=== PATIENT | female | born 1950 | race African-American/Black ===

== ENCOUNTER 2021-01-17 10:29 | Outpatient (CLI) | payer MEDICARE, OTHER, SELFPAY ==
[2021-01-17 11:19] LABS: Anion Gap 11 mmol/L (8-16); Blood Urea Nitrogen 39 mg/dL (7-17); Carbon Dioxide 36 mmol/L (22-30); Chloride 94 mmol/L (98-107); Estimated Glomerular Filt Rate 7; Glucose 94 mg/dL (65-110); Potassium 3.5 mmol/L (3.4-5.0); Sodium 141 mmol/L (137-145)
[2021-01-17 11:37] LABS: INR 1.1
[2021-01-17 11:38] LABS: Partial Thromboplastin Time 31.7 SECONDS (22.3-36.8)
== END 2021-01-17 10:30 | disposition home or self-care (01) ==
LOC: ANHSURGERY 10:35
PROVIDERS: Anesthesiology; PCP Internal Medicine Infectious Disease; Visit Provider Plastic Surgery
DX: Z01.812 Encounter for preprocedural laboratory examination (principal); N19 Unspecified kidney failure
CPT/HCPCS: 36415; 80048; 85610; 85730

== ENCOUNTER 2021-01-24 01:46 | Day surgery (SDC) | payer MEDICARE, OTHER, SELFPAY ==
[2021-01-11 12:00] VITALS: BMI 27.3
[2021-01-24 06:16] VITALS: BP 134/71; PULSE 92; RESP 16; TEMP 36.6; O2SAT 98
--- NOTE | 2021-01-24 06:45 | WPDANESEPPF ---
Anes - Initial Pre Proc Eval Procedure: Operation Date: 01/24/21 07:30 Proposed Procedures p Left Open Carpal Tunnel Release - Jer Charles MD Date/Time: 01/24/21 06:45 Surgeon: Jer Charles MD Pre Op Diagnosis: left carpal tunnel syndrome Patient Data Age: 70 Gender: F Height: 1.57 m Weight: 68 kg Last Vital Signs Temp 36.6 C 01/24/21 06:16 Pulse 92 01/24/21 06:16 Resp 16 01/24/21 06:16 BP 134/71 01/24/21 06:16 Pulse Ox 98 01/24/21 06:16 Allergies Allergy/AdvReac Type Severity Reaction Status Date / Time iohexol AdvReac AVOIDS Verified 01/11/21 11:46 [From contrast - CT, X-RAY] Sulfa (Sulfonamide AdvReac Nausea and Verified 01/11/21 11:45 Antibiotics) Vomiting Home Medications Medication Instructions Recorded Confirmed Type donepezil 10 mg tablet 10 mg PO DAILY tablet 12/13/20 01/24/21 History pantoprazole 40 mg tablet,delayed 40 mg PO HS tablet 12/13/20 01/24/21 History release senna 1 cap PO DAILY PRN 12/13/20 01/24/21 History tehs-gqklsldb-krryats-L.acidophilus-herbal no.279 545 mg capsule simvastatin 20 mg tablet 20 mg PO HS 12/13/20 01/24/21 History allopurinol 100 mg tablet 100 mg PO DAILY 12/21/20 01/24/21 History carvedilol 12.5 mg tablet 12.5 mg PO Q12H 12/21/20 01/24/21 History tiotropium bromide 1.25 2 puff INHALATION BID 12/21/20 01/24/21 History mcg/actuation mist for inhalation acetaminophen 500 mg PO Q6H PRN 01/11/21 01/24/21 History amlodipine 10 mg PO QAM 01/11/21 01/24/21 History aspirin [Adult Aspirin EC Low 81 mg PO DAILY 01/11/21 01/24/21 History Strength] cyclobenzaprine 10 mg PO TID 01/11/21 01/24/21 History diphenhydramine HCl [Benadryl] 25 mg PO QAM 01/11/21 01/24/21 History furosemide 20 mg PO BID 01/11/21 01/24/21 History hydralazine 50 mg PO TID 01/11/21 01/24/21 History isosorbide mononitrate 30 mg PO QAM 01/11/21 01/24/21 History vitamin E mixed [Natural Vitamin E] 400 unit PO DAILY 01/11/21 01/24/21 History Patient hx anesthesia problems: none Family hx anesthesia problems: none Results Review: All pre-operative results and documents have been reviewed as part of the pre-operative evaluation. [facility] Past Medical History Medical History COPD (chronic obstructive pulmonary disease) CVA (cerebral vascular accident) ESRD (end stage renal disease) on dialysis Hyperlipidemia Hypertension Social History Social History Smoking packs per day: 2 Smoking cigarettes per day: 40.0 Years smoked: 42 Smoking pack-years: 84.00 Smoking status: Never smoker Tobacco type: cigarettes Smoking end date: 10/27/03 Alcohol intake: never Alcohol use details: SOCIAL DRINKER IN PAST Substance use: never Living arrangements: with family Additional living arrangements comments: DAUGHTER, SON-IN-LAW, GRANDDAUGHTER Spiritual care concerns: No Anes - Eval Final PreProcedure Day of Procedure 01/24/21 06:45 Patient weight: overweight Heart: regular rate and rhythm Lungs: decreased breath sounds Airway: Mallampati scale class II Neurological: alert and oriented and hemiparesis Last oral intake: >/= 8 hours ASA classification: IV Emergent: no Anesthetic plan: proceed Anesthesia type and monitoring: general GIVS and standard monitoring Results Review: All pre-operative results and documents have been reviewed as part of the pre-operative evaluation. Informed Consent: The patient's anesthetic plan and its attendant risks and benefits were discussed with the patient/family/POA. Questions were solicited and answers provided to the satisfaction of the patient/family/POA.
[2021-01-24] MEDS: SODIUM CHLORIDE 0.9% IV 500 ML 30 ML IV CONT (06:51)
--- NOTE | 2021-01-24 06:56 | WPDHPUPDATE1 ---
History and Physical Update Update Date/Time: 01/24/21 06:56 History and Physical has been reviewed, including an updated exam of the patient. There are NO changes in the patient's condition. Risks, benefits, and alternatives have been discussed and questions answered. Patient agrees to proceed with procedure.
[2021-01-24 07:07] LABS: Anion Gap 11 mmol/L (8-16); Blood Urea Nitrogen 39 mg/dL (7-17); Calcium 8.9 mg/dL (8.4-10.2); Carbon Dioxide 36 mmol/L (22-30); Chloride 91 mmol/L (98-107); Estimated CRCL calculation 6 ml/min; Estimated Glomerular Filt Rate 7; Glucose 83 mg/dL (65-110); Potassium 3.6 mmol/L (3.4-5.0); Sodium 138 mmol/L (137-145)
[2021-01-24] MEDS: ceFAZolin 2 GM/D5W 50 ML 2 GM/50 ML BAG IVPB (07:21)
--- NOTE | 2021-01-24 07:36 | SUR.OPER ---
PATIENT'S LEFT ARM AV SHUNT ASSESSED. PALPABLE THRILL.
[2021-01-24] MEDS: LIDO 1%/EPINEPHRINE 1:100,000 50 ML VIAL 10 ML INFILTRATE (07:40)
[2021-01-24] MEDS: BACITRACIN OINTMENT 15 GM TUBE 1 APPLIC TOPICAL (07:48)
[2021-01-24 08:03] VITALS: BP 102/52; PULSE 84; RESP 14; O2SAT 97
--- NOTE | 2021-01-24 08:15 | P.OP_ITS ---
Procedure Note - Detailed Date of Procedure 01/24/21 Pre-op Diagnosis left carpal tunnel syndrome Post-op Diagnosis same Procedure Performed Left open carpal tunnel release Surgeon Jer Charles MD Anesthesia MAC Description of Procedure The left carpal canal area was marked on the patient's wrist in the holding area. She was taken to the operating room where she was placed supine on the operating table. A time-out was held and confirmed. She was given IV sedation and the left upper extremity was prepped and draped in usual fashion. She has a dialysis shunt in the upper extremity and we elected not to use a tourniquet. The site was remarked and locally infiltrated with 1% lidocaine with epinephrin e. Several minutes were allowed for some hemostatic effect. The incision was made with a 15 blade. Blunt dissection revealed the palmar aponeurosis and the transverse carpal ligament. This was incised with a 15 blade. Under 3 point retraction the ligament was divided distally and proximally for complete release. No unusual anatomy was noted. The skin was closed with interrupted 5 0 nylon sutures and the usual bandage with Tramaine wrap was applied. Tolerated well she is being discharged with instructions in wound care and follow-up and a prescription for hydrocodone 5/325 7.
[2021-01-24 08:30] VITALS: BP 101/61; PULSE 84; RESP 16
[2021-01-24 08:58] VITALS: BP 101/61; PULSE 84; RESP 16
--- NOTE | 2021-01-24 10:20 | SUR.OPER ---
PATIENT'S LEFT ARM AV SHUNT ASSESSED. PALPABLE THRILL POST OP.
== END 2021-01-24 09:08 | disposition home or self-care (01) ==
PROVIDERS: Anesthesiology; PCP Internal Medicine Infectious Disease; Visit Provider Plastic Surgery
PROC: (CPT 64721; principal; 2021-01-24 07:30)
DX: G56.02 Carpal tunnel syndrome, left upper limb (principal); Z79.51 Long term (current) use of inhaled steroids; J44.9 Chronic obstructive pulmonary disease, unspecified; I12.0 Hypertensive chronic kidney disease with stage 5 chronic kidney disease or end stage renal disease; N18.6 End stage renal disease; Z99.2 Dependence on renal dialysis; Z86.73 Personal history of transient ischemic attack (TIA), and cerebral infarction without residual deficits; Z87.891 Personal history of nicotine dependence; Z79.82 Long term (current) use of aspirin
CPT/HCPCS: 64721; 36415; 80048; A9270; J0690; J2704; J3010; J7030

== ENCOUNTER 2021-04-18 01:53 | Day surgery (SDC) | payer MEDICARE, OTHER, SELFPAY ==
[2021-04-09 16:09] VITALS: BMI 27.8
--- NOTE | 2021-04-09 16:15 | PC.NURSE ---
Report to the Outpatient Waiting Room, entrance under the green pavilion located off [facility], at time __0700 on date _04/18/21 . OR Time: _0900 . - You and your visitor will be asked a series of questions to screen for COVID 19 for your protection. - A mask is required within the hospital. - Only one visitor is allowed at this time. Patient visitors will be guided where to wait when not with patient. Preoperative COVID Testing Requirements: No COVID Test needed if: (proof is required; if not received patient will have Rapid Test prior to entry) - Patient has received COVID Vaccine at least 14 days prior to procedure date or - Patient has positive COVID test result within last 90 days of surgery date. COVID Test needed if above criteria is not met If not COVID vaccinated a COVID test must be conducted within 72 hours of surgery and patient is asked to isolate self from time of testing until procedure. You will go to the [facility] for your COVID testing. The [facility] site is located at the corner of [address] [facility]. You will only be called if COVID results are positive and your surgeon may reschedule your elective surgery date. Patients may have clear liquids (water, carbonated beverages, clear teas, apple juice) until 3 hours prior to surgery with a maximum of 20 ounces. - No food from midnight until time of surgery - Infants may have breast milk until 4 hours before surgery, infant formula 6 hours prior to surgery. - Children will be allowed to drink immediately following surgery. If applicable, please bring a bottle or sippy cup to assist with drinking. Juice, water, soda, and popsicles are readily available. For infants on formula, please bring formula the day of surgery. Pacifiers are allowed. Take the following medications with a SIP of water the morning of surgery: _AMLODIPINE,CARVEDILOL,DONEPEZIL,HYDRALAZINE,ISOSORBIDE,SPIRIVA Medications to discontinue per physician ____ALL VITAMINS AND SUPPLEMENTS 3 DAYS PRE OP Date to take last dose__04/14/21 Please no make-up, nail lao, hairspray, perfume, deodorant, or body powder the day of surgery. No jewelry (including any body piercings) or valuables the day of surgery, leave them at home. Please take a shower or bath the night before, or the morning of, surgery with an antibacterial soap. Wear comfortable, loose fitting clothing. Children are encouraged to wear pajamas. - Jewelry must be removed prior to entering the operating room. Rings and piercings that are not removed may be cut off. - The hospital will not accept responsibility for valuables. - Please leave all valuables, including medications, at home the day of surgery. If you are going home after surgery, a licensed catshovel driver must drive you home. - NO public transportation without another adult. - We recommend that an adult stay with you for 24 hours following discharge. - We also recommend that you do not drive, make important decision, drink alcoholic beverages, or take any drugs that were not prescribed by your health care provider for at least 24 hours after your discharge time. For Pediatric surgeries, we recommend two adults accompany the child home (only one inside the building at this time). Follow any additional instructions given to you from your surgeon. Telephone instructions given to ___PATIENT and asked if any additional questions and then verbalized understanding. Patient advised to call surgeon office or pre surgery nurse liaison [phone] if any additional questions.
[2021-04-18 07:10] VITALS: BP 151/76; PULSE 93; RESP 16; TEMP 36.3; O2SAT 99
--- NOTE | 2021-04-18 07:15 | WPDHPUPDATE1 ---
History and Physical Update Update Date/Time: 04/18/21 07:15 History and Physical has been reviewed, including an updated exam of the patient. There are NO changes in the patient's condition. Risks, benefits, and alternatives have been discussed and questions answered. Patient agrees to proceed with procedure.
[2021-04-18] MEDS: SODIUM CHLORIDE 0.9% IV 500 ML 30 ML IV CONT (07:34)
[2021-04-18 07:50] LABS: Anion Gap 9 mmol/L (8-16); Blood Urea Nitrogen 36 mg/dL (7-17); Calcium 8.7 mg/dL (8.4-10.2); Carbon Dioxide 38 mmol/L (22-30); Chloride 91 mmol/L (98-107); Estimated CRCL calculation 7 ml/min; Estimated Glomerular Filt Rate 8; Glucose 84 mg/dL (65-110); Potassium 3.7 mmol/L (3.4-5.0); Sodium 138 mmol/L (137-145)
--- NOTE | 2021-04-18 08:32 | WPDANESEPPF ---
Anes - Initial Pre Proc Eval Procedure: Operation Date: 04/18/21 09:00 Proposed Procedures p Right Open Carpal Tunnel Release - Jer Charles MD Date/Time: 04/18/21 08:32 Surgeon: Jer Charles MD Pre Op Diagnosis: Rt Carpal Tunnel Syndrome Patient Data Age: 71 Gender: F Height: 1.57 m Weight: 69.1 kg Allergies Allergy/AdvReac Type Severity Reaction Status Date / Time iohexol AdvReac AVOIDS Verified 04/18/21 07:03 [From contrast - CT, X-RAY] Sulfa (Sulfonamide AdvReac Nausea and Verified 04/18/21 07:03 Antibiotics) Vomiting Home Medications Medication Instructions Recorded Confirmed Type donepezil 10 mg tablet 10 mg PO DAILY tablet 12/13/20 04/09/21 History pantoprazole 40 mg tablet,delayed 40 mg PO HS tablet 12/13/20 04/09/21 History release simvastatin 20 mg tablet 20 mg PO HS 12/13/20 04/09/21 History allopurinol 100 mg tablet 100 mg PO DAILY 12/21/20 04/09/21 History carvedilol 12.5 mg tablet 12.5 mg PO Q12H 12/21/20 04/09/21 History tiotropium bromide 1.25 2 puff INHALATION BID 12/21/20 04/09/21 History mcg/actuation mist for inhalation acetaminophen 500 mg PO Q6H PRN 01/11/21 04/09/21 History amlodipine 5 mg PO QAM 01/11/21 04/09/21 History aspirin 81 mg PO DAILY 01/11/21 04/09/21 History cyclobenzaprine 10 mg PO TID 01/11/21 04/09/21 History diphenhydramine HCl [Benadryl] 25 mg PO QAM 01/11/21 04/09/21 History furosemide 20 mg PO BID 01/11/21 04/09/21 History hydralazine 50 mg PO TID 01/11/21 04/09/21 History isosorbide mononitrate 30 mg PO QAM 01/11/21 04/09/21 History vitamin E mixed 400 unit PO DAILY 01/11/21 04/18/21 History Laboratory Tests 04/18/21 07:29 Sodium 138 mmol/L mmol/L (137-145) Potassium 3.7 mmol/L mmol/L (3.4-5.0) Chloride 91 mmol/L L mmol/L (98-107) Carbon Dioxide 38 mmol/L H mmol/L (22-30) Anion Gap 9 mmol/L mmol/L (8-16) BUN 36 mg/dL H mg/dL (7-17) Creatinine 6.00 mg/dL H mg/dL (0.7-1.0) Estim Creat Clear Calc 7 ml/min ml/min Estimated GFR 8 L (59 - ) Glucose 84 mg/dL mg/dL (65-110) Calcium 8.7 mg/dL mg/dL (8.4-10.2) Patient hx anesthesia problems: none Family hx anesthesia problems: none Results Review: All pre-operative results and documents have been reviewed as part of the pre-operative evaluation. [facility] Past Medical History Medical History COPD (chronic obstructive pulmonary disease) CVA (cerebral vascular accident) ESRD (end stage renal disease) on dialysis Hyperlipidemia Hypertension Social History Social History Smoking packs per day: 2 Smoking cigarettes per day: 40.0 Years smoked: 42 Smoking pack-years: 84.00 Smoking status: Former smoker Tobacco type: cigarettes Smoking end date: 04/28/03 Alcohol intake: never Alcohol use details: SOCIAL DRINKER IN PAST Substance use: never Living arrangements: with family Additional living arrangements comments: DAUGHTER, SON-IN-LAW, GRANDDAUGHTER Spiritual care concerns: No Anes - Eval Final PreProcedure Day of Procedure 04/18/21 08:32 Patient weight: overweight Heart: regular rate and rhythm Lungs: clear to auscultation Airway: Mallampati scale class II Neurological: alert and oriented Last oral intake: >/= 8 hours ASA classification: IV Emergent: no Anesthetic plan: proceed Anesthesia type and monitoring: general GIVS and standard monitoring Results Review: All pre-operative results and documents have been reviewed as part of the pre-operative evaluation. Informed Consent: The patient's anesthetic plan and its attendant risks and benefits were discussed with the patient/family/POA. Questions were solicited and answers provided to the satisfaction of the patient/family/POA.
[2021-04-18] MEDS: LIDO 1%/EPINEPHRINE 1:100,000 50 ML VIAL 10 ML INFILTRATE (08:58)
[2021-04-18] MEDS: BACITRACIN OINTMENT 15 GM TUBE 1 APPLIC TOPICAL (08:59)
[2021-04-18 09:19] VITALS: BP 133/69; PULSE 86; RESP 12; O2SAT 92
--- NOTE | 2021-04-18 09:43 | W.PM.PROC2 ---
Procedure Note - Detailed Date of Procedure 04/18/21 Pre-op Diagnosis Rt Carpal Tunnel Syndrome Post-op Diagnosis same Procedure Performed Right open carpal tunnel release Surgeon Jer Charles MD Anesthesia MAC Description of Procedure The right carpal tunnel region was marked on the patient as she waited in the holding area. She was taken to the operating room placed supine operating table. She was given IV sedation. The extremity was prepped and draped usual fashion. The site was remarked and locally infiltrated with 1% lidocaine with epinephrine. The tourniquet was on the forearm in the more proximal IV access herself with avoidance placement on her other arm where she has AV shunt.. that we did not utilize the tourniquet. The incision was made and dissection was carried through the subcutaneous tissue to the palmar aponeurosis. And retractors were inserted for retraction palmar aponeurosis was divided. Retinacular ligament was identified and carefully incised with a 15 blade. A complete release was done distally and proximally. There was no unusual anatomy noted. The skin was closed with interrupted 5 0 nylon suture. The usual bandage with Tramaine wrap was applied. She was discharged from the operating room in stable condition. She has instructions in wound care and follow-up and a prescription for hydrocodone 5/325 7. With instructions not to overuse the acetaminophen that she already uses at home. Estimated Blood Loss 1 Tourniquet Time 0 Packing No Pathology none sent Complications No immediate complications Condition stable Disposition same day
[2021-04-18 09:45] VITALS: BP 131/69; PULSE 85; RESP 20
[2021-04-18 10:15] VITALS: BP 119/69; PULSE 81; RESP 20
== END 2021-04-18 10:25 | disposition home or self-care (01) ==
PROVIDERS: Anesthesiology; PCP Internal Medicine Infectious Disease; Visit Provider Plastic Surgery
PROC: (CPT 64721; principal; 2021-04-18 09:00)
DX: G56.01 Carpal tunnel syndrome, right upper limb (principal); J44.9 Chronic obstructive pulmonary disease, unspecified; E78.5 Hyperlipidemia, unspecified; I12.0 Hypertensive chronic kidney disease with stage 5 chronic kidney disease or end stage renal disease; N18.6 End stage renal disease; Z99.2 Dependence on renal dialysis; Z86.73 Personal history of transient ischemic attack (TIA), and cerebral infarction without residual deficits; Z87.891 Personal history of nicotine dependence
CPT/HCPCS: 64721; 36415; 80048; A9270; J1100; J2250; J2704; J3010; J7040

== ENCOUNTER 2021-07-20 14:13 | Outpatient (CLI) | payer MEDICARE, OTHER, SELFPAY | END 2021-07-20 14:14 | disposition home or self-care (01) | LOC: ANHAUDIO 14:14 | PROVIDERS: PCP Internal Medicine Infectious Disease; Visit Provider Internal Medicine Infectious Disease | DX: H91.92 Unspecified hearing loss, left ear (principal) | CPT/HCPCS: 92557; 92567 ==

== ENCOUNTER 2022-01-04 11:59 | Inpatient (IN) | payer MEDICARE, OTHER, SELFPAY ==
[2022-01-04] VITALS (12 sets, daily range): BP systolic 127–170; BP diastolic 60–88; PULSE 78–94; RESP 12–20; TEMP 36.4–36.7; O2SAT 94–99; BMI 28.6
--- NOTE | ~2022-01-04 | XR_ITS ---
EXAMINATION: XR chest 1V DATE: 01/04/2022 12:57 INDICATION: Stroke. TECHNIQUE: A single frontal view of the chest was obtained. COMPARISON: None. FINDINGS: The patient is rotated to her left. There is a diffuse interstitial pattern in the lungs, c onsistent with mild pulmonary edema. Calcified pulmonary nodules and calcified hilar lymph nodes are consistent with old granulomatous disease. No pleural effusion or pneumothorax. Cardiomegaly is noted . Surgical clips overlie the left axilla. IMPRESSION: 1. Mild pulmonary edema. 2. Cardiomegaly. Reviewed, dictated and finalized at location A.
--- NOTE | ~2022-01-04 | XR_ITS ---
EXAMINATION: XR chest 1V portable Exam Date/Time: 01/06/2022 15:40 CDT HISTORY: shortness of breath /cough Comparison: 01/04/2022. RESULT: Lines, tubes, and devices: None. Lungs and pleura: Diffuse reticular opacities, unchanged. Increasing subsegmental opacities in the l eft lower lung. Cardiomediastinal silhouette: Stable. Other: No acute osseous or upper abdominal finding. IMPRESSION: Increasing left lower lung opacities may reflect consolidation or atelectasis. Reviewed, dictated and finalized at location K.
--- NOTE | ~2022-01-04 | US_ITS ---
EXAMINATION: US carotid duplex BI DATE: 01/05/2022 10:57 INDICATION: Cerebrovascular accident TECHNIQUE: Grayscale, color Doppler, and pulsed Doppler images of the cervical carotid arteries were obtained. The degree of vessel stenosis is placed in one of the following categories: normal, <50%, 5 0-69%, >=70% but less than near-occlusion, near-occlusion, or total occlusion. Note that percent sten osis relative to normal distal artery lumen diameter is indirectly measured from velocity measurement s as described by Jp, et al. Radiology 2003; 229:[id number]. COMPARISON: None. FINDINGS: RIGHT: The right common carotid artery (CCA) peak systolic velocity (PSV) is 49.3 cm/s. The right internal c arotid artery (ICA) PSV is 75.0 cm/s. The right ICA end-diastolic velocity (EDV) is 24.4 cm/s. The ri t ICA/CCA PSV ratio is 1.5. Grayscale and color Doppler images yield an estimate of less than 50% d iameter reduction from plaque in the ICA. The external carotid artery (ECA) PSV is 70.5 cm/s. There i s antegrade flow in the right vertebral artery. LEFT: The left CCA PSV is 55.1 cm/s. The left ICA PSV is 78.5 cm/s. The left ICA EDV is 26.9 cm/s. The left ICA/CCA PSV ratio is 1.4. Grayscale and color Doppler images yield an estimate of less than 50% diam eter reduction from plaque in the ICA. The ECA PSV is 67.4 cm/s. There is antegrade flow in the left vertebral artery. IMPRESSION: 1. Less than 50% stenosis in the right internal carotid artery. 2. Less than 50% stenosis in the left internal carotid artery. Reviewed, dictated and finalized at Location A. Reviewed, dictated and finalized at location A.
--- NOTE | ~2022-01-04 | CT_ITS ---
EXAMINATION: CT brain wo con INDICATION: Left-sided facial droop and slurred speech COMPARISON: None TECHNIQUE: Standard unenhanced head CT. The dose-length product (DLP) was 605.33 mGy-cm. The mA was a djusted according to patient size. Iterative reconstruction technique was employed. FINDINGS: There is no acute intraparenchymal hemorrhage. No evidence of mass lesion. There is encepha lomalacia in the right frontoparietal region, consistent with prior infarct. There are old infarcts o f the bilateral basal ganglia as well. No evidence of acute infarction. There is mild periventricular and subcortical hypodensity probably related to small vessel ischemic disease. There is mild promine nce of the sulci and ventricles related to cerebral atrophy. Intracranial calcified cerebral atherosc lerosis is noted. There are no extra-axial collections. There is no mass effect or midline shift. Ciera nges in the globes are likely from ocular lens surgery. The visualized sinuses and mastoid air cells are well aerated. IMPRESSION: 1. Areas of prior infarction without acute intracranial abnormality. 2. Age related findings. Reviewed, dictated and finalized at location B.
--- NOTE | 2022-01-04 12:05 | ECG_ITS ---
Measurements Intervals [place] Rate: 79 P: 50 NC: 161 QRS: -15 QRSD: 96 T: 12 QT: 407 QTc: 469 Interpretive Statements SINUS RHYTHM POSSIBLE LEFT ATRIAL ENLARGEMENT LEFT VENTRICULAR HYPERTROPHY CANNOT RULE OUT SEPTAL INFARCT, AGE INDETERMINATE BORDERLINE T WAVE ABNORMALITY- ANTEROLAT/INF LEADS ABNORMAL ECG NO PREVIOUS ECG AVAILABLE FOR COMPARISON Electronically Signed On 01-04-2022 12:58:45 CDT by Devang Contreras D.O.
[2022-01-04 12:33] LABS: Basophils Percent Auto 0.2 % (0.2-1.2); Eosinophils Absolute Auto 0.1 K/mm3 (0-0.3); Eosinophils Percent Auto 1.2 % (0-4.4); Hematocrit 30.9 % (37.0-47.0); Hemoglobin 9.6 g/dL (12.0-15.0); Immature Granulocyte Absolute 0.02 K/mm3 (0.00-0.031); Immature Granulocyte Percent A 0.5 % (0-0.5); Lymphocytes Absolute Auto 1.11 K/mm3 (0.9-3.2); Lymphocytes Percent Auto 26.1 % (18.3-44.2); Mean Corpuscular HGB Conc 31.1 g/dl (32-36); Mean Corpuscular Hemoglobin 30.1 pg (26-34); Mean Corpuscular Volume 96.9 fl (80-100); Mean Platelet Volume 9.6 fl (7.4-10.4); Monocytes Absolute Auto 0.7 K/mm3 (0.1-0.6); Monocytes Percent Auto 16.7 % (2.6-8.5); Neutrophils Absolute Auto 2.4 K/mm3 (1.3-6.7); Neutrophils Percent Auto 55.3 % (45.5-73.1); Platelet Count Result 125 k/mm3 (150-375); Red Blood Count 3.19 M/mm3 (4.2-5.4); Red Cell Distribution Width 14.6 % (11.5-14.5); White Blood Count 4.3 K/mm3 (4.5-10.0)
[2022-01-04 12:41] LABS: Glucose Point of Care 93 mg/dl (65-105)
[2022-01-04 12:45] LABS: Alanine Aminotransferase 16 U/L (6-35); Albumin Level 3.6 g/dL (3.5-5.1); Alkaline Phosphatase 88 U/L (38-126); Anion Gap 11 mmol/L (8-16); Aspartate Amino Transferase 40 U/L (14-36); Bilirubin,Total 0.3 mg/dL (0.2-1.3); Blood Urea Nitrogen 31 mg/dL (7-17); Calcium 8.7 mg/dL (8.4-10.2); Carbon Dioxide 36 mmol/L (22-30); Chloride 89 mmol/L (98-107); Estimated Glomerular Filt Rate 9; Glucose 90 mg/dL (65-110); Potassium 3.5 mmol/L (3.4-5.0); Sodium 136 mmol/L (137-145)
--- NOTE | 2022-01-04 12:48 | ED.NEUROSD ---
HPI - Neuro Symptoms/Deficit General Chief Complaint: Suspected CVA Stated Complaint: face droop, weakness Time Seen by Provider: 01/04/22 12:46 Source: patient, family and EMS Mode of arrival: EMS Limitations: no limitations History of Present Illness HPI Narrative: 71 years old -Filipino female brought to the emergency room from home by her daughter who is telling me that her mom been complaining of chest pain for the last 48 hours, constant, also complaining of left facial numbness and drooping and left-sided weakness worse than usual. Which started 48 hours ago. History of CVA with left hemiparesis, dialysis, last last dialysis was yesterday, patient on baby aspirin once a day, full code, currently complaining of increased chronic pain of the knees, back and left shoulder. Patient had a fall yesterday in the bathroom, found on her hands and knees, denies any pain at that time or head or neck injury.. Patient move with holding on reyna, and wheelchair Related Data Home Medications Medication Instructions Recorded Confirmed pantoprazole 40 mg tablet,delayed 40 mg PO HS 12/13/20 05/22/21 release simvastatin 20 mg tablet 20 mg PO HS 12/13/20 05/22/21 allopurinol 100 mg tablet 100 mg PO DAILY 12/21/20 05/22/21 tiotropium bromide 1.25 2 puff inhalation BID 12/21/20 05/22/21 mcg/actuation mist for inhalation (Spiriva Respimat) acetaminophen 500 mg tablet 500 mg PO Q6H PRN Pain 01/11/21 05/22/21 amlodipine 10 mg tablet 5 mg PO QAM 01/11/21 05/22/21 aspirin 81 mg tablet,delayed 81 mg PO DAILY 01/11/21 05/22/21 release cyclobenzaprine 10 mg tablet 10 mg PO TID 01/11/21 05/22/21 diphenhydramine HCl 25 mg capsule 25 mg PO QAM 01/11/21 05/22/21 (Benadryl) furosemide 20 mg tablet 20 mg PO BID 01/11/21 05/22/21 hydralazine 50 mg tablet 50 mg PO TID 01/11/21 05/22/21 isosorbide mononitrate 30 mg 30 mg PO QAM 01/11/21 05/22/21 tablet,extended release 24 hr vitamin E mixed 400 unit capsule 400 unit PO DAILY 01/11/21 05/22/21 carvedilol 25 mg tablet 25 mg PO Q12H 12/10/21 Allergies Allergy/AdvReac Type Severity Reaction Status Date / Time iohexol AdvReac AVOIDS Verified 12/10/21 15:18 [From contrast - CT, X-RAY] Sulfa (Sulfonamide AdvReac Nausea and Verified 12/10/21 15:18 Antibiotics) Vomiting Review of Systems Review of Systems: All systems reviewed & are unremarkable except as noted in HPI and below PMFSH Past Medical History Medical History Arthritis COPD (chronic obstructive pulmonary disease) CVA (cerebral vascular accident) ESRD (end stage renal disease) on dialysis Hyperlipidemia Hypertension Social History Social History Smoking packs per day: 2 Smoking cigarettes per day: 40.0 Years smoked: 42 Smoking pack-years: 84.00 Smoking status: Former smoker Tobacco type: cigarettes Smoking end date: 04/28/03 Alcohol intake: never Alcohol use details: SOCIAL DRINKER IN PAST Substance use: never Additional living arrangements comments: DAUGHTER, SON-IN-LAW, GRANDDAUGHTER Spiritual care concerns: No Exam Narrative: General appearance: Well-developed, well-nourished Skin: Normal color Head: Normocephalic, nontraumatic Eyes: Clear conjunctiva ENT: Oropharynx normal, ears normal, nose normal Neck: Supple, nontender Chest and respiratory: Airway patent, no respiratory distress, no accessory muscle use Heart: Regular rate/rhythm Abdomen: Soft, nontender, no organomegaly, quiet bowel sounds Vascular: Normal peripheral pulses, normal capillary refill. Musculoskeletal: Limited movement of the left upper and left lower extremity Neurologic: Alert and oriented ?3, left hemiparesis and left facial drooping
--- NOTE | 2022-01-04 12:52 | PC.NURSE ---
Pt to CT on stretcher
[2022-01-04 12:56] LABS: INR 1.2; Prothrombin Time 14.2 Seconds (11.1-14.7)
[2022-01-04 12:57] LABS: Partial Thromboplastin Time 37.1 SECONDS (22.3-36.8)
[2022-01-04 13:03] LABS: Troponin I 0.102 ng/mL (0.000-0.034)
[2022-01-04] MEDS: ASPIRIN 81 MG ENTERIC TABLET 243 MG PO (14:20)
--- NOTE | 2022-01-04 18:00 | PM.IMHP ---
H&P: HPI History of Present Illness Date/Time: 01/04/22 18:00 Chief Complaint: Chest pain, facial droop. Narrative: This is a very pleasant 71-year-old female with history of stroke and residual left-sided weakness, end-stage renal disease on hemodialysis, hypertension, and chronic obstructive pulmonary disease who presented to the emergency department from home for evaluation of chest pain and facial droop. The patient reports intermittent, self-limiting midsternal chest pain over the past 48 hours which she describes as sharp and shooting in nature. She has perhaps some mild shortness of breath with that in it seems to occur most often when she is standing to pivot and transfer or walking short distances. The pain does not radiate and there are no other associated symptoms aside from mild shortness of breath. She apparently complains of chronic pain, frequently in her neck, back, and legs, and this is unchanged. Over the last couple of days the patient's daughter has noticed that she seems to be more weak and this morning the patient went to the bathroom where she sustained a fall (she is not really able to tell me how or why she fell) and when her daughter came to check on her she thought her face seemed to be drooping on the left side and she came in for evaluation. Brain CT done on arrival to the ER today showed areas of prior infarction without acute intracranial abnormality. Her troponin was mildly elevated but has remained flat. Her EKG showed borderline T-wave abnormalities in the anterior lateral and inferior leads and Q-waves in the precordial leads. She is not having any chest pain at the time my evaluation and in fact she really has no complaints at all. She denies vertigo, auditory and visual changes, dysarthria, dysphagia, paresthesias, and worsening weakness from baseline. She does not recall feeling lightheaded or dizzy prior to the fall today and states that she sustained no injuries. She denies head trauma and loss of consciousness in the fall. She has not history of coronary artery disease though she has previously seen a president & ceo [employer]. To her knowledge she has never had an echocardiogram or stress test. Review of Systems Review of Systems: Twelve systems were reviewed. Somewhat limited as she seems to be a bit forgetful. She does deny fever, chills, and sweats though she reports that she is cold all the time due to dialysis. She is in a wheelchair most the time but can stand and pivot. She can walk short distances though mobility is limited due to chronic weakness from previous stroke. she still makes a small amount of urine, no dysuria or hematuria. She is due for dialysis tomorrow. She has occasional lower extremity edema but nothing significant. No orthopnea. She has not had pleuritic pain, palpitations, or racing heart. Except as documented, all other systems were reviewed and are negative. [facility] Past Medical History Medical History (Updated 01/04/22 @ 23:27 by Cara Moon PA-C) Arthritis Cerebrovascular accident Residual memory loss and left-sided weakness. Chronic obstructive pulmonary disease Chronic pain syndrome Pain pump in situ. End-stage renal disease on hemodialysis Hyperlipidemia Hypertension Obstructive sleep apnea Intolerant to CPAP. Surgical History Surgical History (Updated 01/04/22 @ 23:23 by Cara Moon PA-C) History of benign breast biopsy History of bilateral cataract extraction History of section History of hysterectomy Status post creation of arteriovenous fistula Status post right foot surgery Family History Family History (Updated 01/04/22 @ 23:23 by Cara Moon PA-C) Other Diabetes mellitus Heart disease Hypertension Social History Social History (Updated 01/04/22 @ 23:24 by Cara Moon PA-C) Social History: Surrogate medical decision maker: Eufemia Powell, daughter. Code status: Full code. Smoking packs per day: 2 Smoking cigar
[2022-01-04 18:09] LABS: Troponin I 0.089 ng/mL (0.000-0.034)
--- NOTE | 2022-01-04 18:34 | ADMGEN ---
This patient, Chito Paez, was admitted to IMU Room 202-01. Patient/family oriented to hospital policies and general routines including ID bracelet, bed and alarms, visiting hours, pain management, procedures, bathroom and other care routines, personal items, smoking policy, room service/diet, and visiting hours. Information on how to activate the Rapid Response Team has been discussed. Patient/Family are encouraged to report perceived risks to care and to ask questions if they do not understand what they are told or what they should do.
--- NOTE | 2022-01-04 19:44 | PC.NURSE ---
Per Pt, she has a Morphine pain pump in abdomen for chronic back pain. It [place] [address] Romain Walton who has offices in [place] and [place]. She believes that it is refilled monthly at her home and has an RN scheduled to refill her pump On Friday, January 09. Her pain pump releases a dose at 6 am and 6 pm.
[2022-01-04 20:44] LABS: Troponin I 0.091 ng/mL (0.000-0.034)
[2022-01-04] MEDS: SIMVASTATIN 20 MG TABLET PO (23:54)
[2022-01-04] MEDS: carvediloL 12.5 MG TABLET PO (23:54)
[2022-01-04] MEDS: PANTOPRAZOLE 40 MG TABLET PO (23:55)
[2022-01-05] VITALS (28 sets, daily range): BP systolic 97–140; BP diastolic 56–91; PULSE 75–88; RESP 16–18; TEMP 36–36.6; O2SAT 96–99
[2022-01-05 05:07] LABS: Alanine Aminotransferase 14 U/L (6-35); Albumin Level 3.1 g/dL (3.5-5.1); Alkaline Phosphatase 80 U/L (38-126); Anion Gap 11 mmol/L (8-16); Aspartate Amino Transferase 34 U/L (14-36); Bilirubin,Total 0.3 mg/dL (0.2-1.3); Blood Urea Nitrogen 36 mg/dL (7-17); Calcium 8.3 mg/dL (8.4-10.2); Carbon Dioxide 34 mmol/L (22-30); Chloride 91 mmol/L (98-107); Estimated Glomerular Filt Rate 8; Glucose 78 mg/dL (65-110); Magnesium 2.1 mg/dL (1.6-2.3); Potassium 3.6 mmol/L (3.4-5.0); Sodium 136 mmol/L (137-145)
[2022-01-05 06:48] LABS: Free T4 Free Thyroxine Reflex 1.45 ng/dL (0.78-2.19)
--- NOTE | 2022-01-05 06:55 | PC.NURSE ---
Dr. Holt is home with [facility] requested to consult Dr. Weber.
--- NOTE | 2022-01-05 07:27 | PC.NURSE ---
Spoke with Erica at [facility] and advised her of consult for dialysis today.
[2022-01-05 07:36] LABS: Total Triiodothyronine (T3) 0.91 NG/ML (0.97-1.69)
[2022-01-05] MEDS: SEVELAMER CARBONATE 800 MG TABLET 1600 MG BY MOUTH ×3 (09:33→21:11)
[2022-01-05] MEDS: FUROSEMIDE 20 MG TABLET PO ×2 (09:34→21:08)
[2022-01-05] MEDS: amLODIPine BESYLATE 5 MG TABLET 10 MG PO (09:34)
[2022-01-05] MEDS: ASPIRIN 81 MG ENTERIC TABLET PO (09:34)
[2022-01-05] MEDS: hydrALAZINE HCL 50 MG TABLET PO ×3 (09:34→21:11)
[2022-01-05] MEDS: allopurinoL 100 MG TABLET PO (09:35)
[2022-01-05] MEDS: ASPIRIN 81 MG CHEWABLE TABLET 324 MG PO (09:35)
[2022-01-05] MEDS: DONEPEZIL HCL 10 MG TABLET PO (09:36)
[2022-01-05] MEDS: ISOSORBIDE MONONITRATE 30 MG TAB.ER.24H PO (09:36)
[2022-01-05] MEDS: carvediloL 12.5 MG TABLET PO ×2 (09:37→21:08)
[2022-01-05] MEDS: ACETAMINOPHEN 500 MG TABLET PO ×2 (09:39→21:09)
[2022-01-05] MEDS: CYCLOBENZAPRINE HCL 10 MG TABLET PO ×3 (09:39→21:08)
--- NOTE | 2022-01-05 09:46 | PM.IMPN ---
Progress Note: A&P Assessment and Plan (1) Chest pain: Code(s): R07.9 - Chest pain, unspecified Status: Acute (2) Elevated troponin: Code(s): R77.8 - Other specified abnormalities of plasma proteins Status: Acute (3) Abnormal EKG: Code(s): R94.31 - Abnormal electrocardiogram [ECG] [EKG] Status: Acute (4) Hypertension: Code(s): I10 - Essential (primary) hypertension Status: Chronic (5) End-stage renal disease on hemodialysis: Code(s): N18.6 - End stage renal disease; Z99.2 - Dependence on renal dialysis Status: Acute (6) Facial droop: Code(s): R29.810 - Facial weakness Status: Acute Plan # chest pain atypical troponins are elevated but flat EKG with nonspecific ST-T changes. Chest x-ray with mild pulmonary edema cardiomegaly. # generalized weakness check for underlying infection swab for COVID and flu # facial droop concern for new stroke with left-sided weakness She does have history of stroke with left-sided residual deficits. CT head with areas of prior infarction without acute intracranial abnormality and age-related changes. Brain MRI could not be done due to pain pump. Carotid Doppler and echocardiogram ordered continue on aspirin and statin as order. Check lipid profile and A1c # fall without any obvious injury. PT OT to see # hypertension # end-stage renal disease on hemodialysis chest x-ray with mild pulmonary edema. She is going for dialysis today. # hyperlipidemia # COPD # chronic pain syndrome with pain pump in C2 # obstructive sleep apnea intolerant to CPAP # DVT prophylaxis heparin subQ # code status full code Subjective Date/time seen: 01/05/22 09:46 Interval history: This is a very pleasant 71-year-old female with history of stroke and residual left-sided weakness, end-stage renal disease on hemodialysis, hypertension, and chronic obstructive pulmonary disease who presented to the emergency department from home for evaluation of chest pain and facial droop. The patient reports intermittent, self-limiting midsternal chest pain over the past 48 hours which she describes as sharp and shooting in nature. She has perhaps some mild shortness of breath with that in it seems to occur most often when she is standing to pivot and transfer or walking short distances. The pain does not radiate and there are no other associated symptoms aside from mild shortness of breath. She apparently complains of chronic pain, frequently in her neck, back, and legs, and this is unchanged. Over the last couple of days the patient's daughter has noticed that she seems to be more weak and this morning the patient went to the bathroom where she sustained a fall (she is not really able to tell me how or why she fell) and when her daughter came to check on her she thought her face seemed to be drooping on the left side and she came in for evaluation. Brain CT done on arrival to the ER today showed areas of prior infarction without acute intracranial abnormality. Her troponin was mildly elevated but has remained flat. Her EKG showed borderline T-wave abnormalities in the anterior lateral and inferior leads and Q-waves in the precordial leads. She is not having any chest pain at the time my evaluation and in fact she really has no complaints at all. She denies vertigo, auditory and visual changes, dysarthria, dysphagia, paresthesias, and worsening weakness from baseline. She does not recall feeling lightheaded or dizzy prior to the fall today and states that she sustained no injuries.? She denies head trauma and loss of consciousness in the fall. She has not history of coronary artery disease though she has previously seen a qa developer. To her knowledge she has never had an echocardiogram or stress test. 01/05/2022: No new complaints. Reports feeling weak since past few days. Daughter felt left-sided drooping. Review of Systems Review of Systems: All systems reviewed & ar
--- NOTE | 2022-01-05 10:37 | PM.CNNEP ---
Assessment and Plan Assessment and plan (1) End-stage renal disease on hemodialysis: Code(s): N18.6 - End stage renal disease; Z99.2 - Dependence on renal dialysis Status: Acute Assessment and Plan: the patient has end-stage renal disease. She is cared for by Dr. Holt. She had her last treatment on and the treatment went well. Right now her volume status looks pretty good on physical exam. Chest x-ray does show a little bit of fluid however. She says that she gains between 2 and 2.5L between each treatment. Will go for 2.5L today. Her electrolytes are okay. Will do her on a 3K bath. (2) Chest pain: Code(s): R07.9 - Chest pain, unspecified Status: Acute Assessment and Plan: The patient has been having some chest pain and shortness of breath. Her troponins are mildly elevated but not changing. Evaluation per hospitalists. (3) Facial droop: Code(s): R29.810 - Facial weakness Status: Acute Assessment and Plan: I did not see anything going on with the cranial nerve examination. Her CT scan does show old strokes. She is on a statin already and continues on aspirin. (4) Hypertension: Code(s): I10 - Essential (primary) hypertension Status: Chronic Assessment and Plan: Her blood pressure generally has been pretty good between 120 and 140. Occasionally it is higher. Will see how it is have to fluid removal. Will continue home medications. (5) Renal osteodystrophy: Code(s): N25.0 - Renal osteodystrophy Status: Acute Assessment and Plan: Will check a renal panel in the morning. (6) Anemia in chronic kidney disease: Code(s): N18.9 - Chronic kidney disease, unspecified; D63.1 - Anemia in chronic kidney disease Status: Acute Assessment and Plan: hemoglobin is a little bit low at 9.6. Will give her Epogen. Plan History of Present Illness Reason for Consult Consult date: 01/05/22 Chief Complaint Chief complaint: CVA/ Elevated Troponin History of Present Illness Narrative: Chito Is a very pleasant lady who has multiple medical problems including end-stage renal disease on dialysis [address] Holt, hypertension, sleep apnea, hyperlipidemia, chronic back pain, COPD, multiple strokes in the past, arthritis. Patient says that She fell the day before admission. She called her daughter who talked to her primary care doctor yesterday who told her to have her go to the emergency room. She did have a little bit of droopiness and left corner of her mouth and also had some slow speech and was worried about a stroke. In the meantime the patient has been having some chest pain and shortness of breath over the last couple days. She points to her right parasternal area as the location of the pain. It did not run up her jaw or down her arm or into the belly or back. She always have some shortness or breath but she might have had some shortness of breath with the pain. She went to dialysis on and her dialysis went well. She completed the treatment. She got down to her dry weight. She did have any symptoms and her blood pressure was fine when she left. She has long history of hypertension. This is what caused the kidney disease. Her blood pressures been fine lately. She has had a history of strokes in the past. On her CT scan here she has multiple small strokes. Review of Systems Constitutional: Constitutional: Reports no additional constitutional complaints Eyes: Eyes: Reports no additional eye complaints ENT: Reports system reviewed and no additional complaints, except as documented Cardiovascular: Cardiovascular: Reports no additional cardiovascular complaints Respiratory: Respiratory: Reports no additional respiratory complaints Gastrointestinal: Gastrointestinal: Reports no additional gastrointestinal complaints Genitourinary: Genito
[2022-01-05 11:42] LABS: Cholesterol 110 mg/dL (0-200); HDL Direct 48 mg/dL; Triglycerides 136 mg/dL (<150)
[2022-01-05 11:53] LABS: LDL Cholesterol Direct 34 mg/dL
[2022-01-05 11:57] LABS: Hemoglobin A1C 4.6 % (<5.7)
[2022-01-05 12:24] LABS: Hepatitis B Surface Antigen Negative (Negative)
--- NOTE | 2022-01-05 12:49 | WPDNEURCNPN ---
Assessment and Plan Assessment and plan (1) Anemia in chronic kidney disease: Code(s): N18.9 - Chronic kidney disease, unspecified; D63.1 - Anemia in chronic kidney disease Status: Acute (2) Renal osteodystrophy: Code(s): N25.0 - Renal osteodystrophy Status: Acute (3) Facial droop: Code(s): R29.810 - Facial weakness Status: Acute (4) Hypertension: Code(s): I10 - Essential (primary) hypertension Status: Chronic (5) End-stage renal disease on hemodialysis: Code(s): N18.6 - End stage renal disease; Z99.2 - Dependence on renal dialysis Status: Acute (6) Acute cerebrovascular accident (CVA): Code(s): I63.9 - Cerebral infarction, unspecified Status: Acute (7) Dialysis patient: Code(s): Z99.2 - Dependence on renal dialysis Status: Acute Plan plan as already ordered, considering her Status MRI will not be done will need a general medical care along the lines of renal status Consult date: 01/05/22 Time Seen: 11:00 HPI: Chito Paez is a 71 year old female admitted to the hospital through the emergency room for the possibility of the stroke with left-sided facial droop, patient was brought to the emergency room by her daughter with specific complaints of chest pain of 48 hours duration, left facial numbness, left-sided facial drooping, with the history of possibly starting about 48 hours ago, in addition to the history of previous right hemispheric stroke with left hemiparesis, history of being on renal dialysis with the last dialysis day before visit to the ER, history of taking baby aspirin once daily, history of being full code, and history of chronic pain in her knees ,back and left shoulder and also history of recent fall in bathroom , outpatient medications include aspirin 81 mg daily no sedative medications, history of years smoked 42 his smoking pack years 84 but former smoker with date of and May 12, 2003 no alcohol intake also initial physical examination consistent with the left hemiparesis with normal vital signs pulse ox 97 blood pressure 136/67 CBC abnormal BMP abnormal troponin 0.102 CT of the head documenting prior infarction with no bleed chest x-ray with pulmonary pulmonary edema and cardiomegaly, EKG with left atrial enlargement left ventricular hypertrophy no atrial fibrillation, Review of Systems Review of Systems: All systems reviewed & are unremarkable except as noted in HPI and below PMFSH Past Medical History Medical History (Updated 01/05/22 @ 11:06 by Rome Weber MD) Anemia in chronic kidney disease Arthritis Cerebrovascular accident Residual memory loss and left-sided weakness. Chronic obstructive pulmonary disease Chronic pain syndrome Pain pump in situ. End-stage renal disease on hemodialysis Hyperlipidemia Hypertension Obstructive sleep apnea Intolerant to CPAP. Renal osteodystrophy Surgical History Surgical History History of benign breast biopsy History of bilateral cataract extraction History of section History of hysterectomy Status post creation of arteriovenous fistula Status post right foot surgery Family History Family History Other Diabetes mellitus Heart disease Hypertension Social History Social History Social History: Surrogate medical decision maker: Eufemia Powell, daughter. Code status: Full code. Smoking packs per day: 2 Smoking cigarettes per day: 40.0 Years smoked: 42 Smoking pack-years: 84.00 Smoking status: Former smoker Alcohol intake: never Substance use: never Substance use type: does not use Additional living arrangements comments: The patient lives in [place] with her daughter, son-in-law, and granddaughter. Spiritual care concerns: No Meds Home Medica
[2022-01-05 12:51] LABS: Hepatitis B Surface Anti Res Positive
[2022-01-05 13:21] LABS: SARS-CoV-2 RNA PCR Positive
[2022-01-05] MEDS: EPOETIN ALFA-EPBX 10,000 UNITS/ML VIAL 10000 UNITS IV PUSH (16:54)
[2022-01-05 19:38] LABS: Influenza A QL RT-PCR Negative (Negative); Influenza B QL RT-PCR Negative (Negative)
[2022-01-05] MEDS: SIMVASTATIN 20 MG TABLET PO (21:08)
[2022-01-05] MEDS: PANTOPRAZOLE 40 MG TABLET PO (21:09)
[2022-01-06] VITALS (13 sets, daily range): BP systolic 113–130; BP diastolic 59–74; PULSE 74–90; RESP 12–20; TEMP 36–36.6; O2SAT 98–100
[2022-01-06 05:04] LABS: Basophils Percent Auto 0.3 % (0.2-1.2); Eosinophils Percent Auto 1.3 % (0-4.4); Hematocrit 29.2 % (37.0-47.0); Hemoglobin 9.2 g/dL (12.0-15.0); Immature Granulocyte Absolute 0.01 K/mm3 (0.00-0.031); Immature Granulocyte Percent A 0.3 % (0-0.5); Immature Platelet Fraction Pct 3.9 % (0.9-11.2); Lymphocytes Absolute Auto 1.14 K/mm3 (0.9-3.2); Lymphocytes Percent Auto 37.7 % (18.3-44.2); Mean Corpuscular HGB Conc 31.5 g/dl (32-36); Mean Corpuscular Hemoglobin 30.7 pg (26-34); Mean Corpuscular Volume 97.3 fl (80-100); Mean Platelet Volume 10.8 fl (7.4-10.4); Monocytes Absolute Auto 0.4 K/mm3 (0.1-0.6); Monocytes Percent Auto 11.6 % (2.6-8.5); Neutrophils Absolute Auto 1.5 K/mm3 (1.3-6.7); Neutrophils Percent Auto 48.8 % (45.5-73.1); Platelet Count Result 120 k/mm3 (150-375); Red Cell Distribution Width 14.6 % (11.5-14.5)
[2022-01-06 05:26] LABS: Alanine Aminotransferase 13 U/L (6-35); Albumin Level 3.2 g/dL (3.5-5.1); Alkaline Phosphatase 77 U/L (38-126); Anion Gap 10 mmol/L (8-16); Aspartate Amino Transferase 33 U/L (14-36); Bilirubin,Total 0.3 mg/dL (0.2-1.3); Blood Urea Nitrogen 20 mg/dL (7-17); Calcium 8.4 mg/dL (8.4-10.2); Carbon Dioxide 36 mmol/L (22-30); Chloride 92 mmol/L (98-107); Estimated Glomerular Filt Rate 13; Glucose 78 mg/dL (65-110); Phosphorus 2.5 mg/dL (2.5-4.5); Potassium 3.8 mmol/L (3.4-5.0); Sodium 138 mmol/L (137-145)
[2022-01-06] MEDS: CYCLOBENZAPRINE HCL 10 MG TABLET PO ×3 (08:39→16:43)
[2022-01-06] MEDS: hydrALAZINE HCL 50 MG TABLET PO ×3 (08:40→16:43)
[2022-01-06] MEDS: SEVELAMER CARBONATE 800 MG TABLET 1600 MG BY MOUTH ×3 (08:40→16:43)
[2022-01-06] MEDS: ISOSORBIDE MONONITRATE 30 MG TAB.ER.24H PO (08:40)
[2022-01-06] MEDS: ASPIRIN 81 MG CHEWABLE TABLET 324 MG PO (08:40)
[2022-01-06] MEDS: FUROSEMIDE 20 MG TABLET PO ×2 (08:40→16:43)
[2022-01-06] MEDS: amLODIPine BESYLATE 5 MG TABLET 10 MG PO (08:41)
[2022-01-06] MEDS: carvediloL 12.5 MG TABLET PO ×2 (08:41→21:58)
[2022-01-06] MEDS: DONEPEZIL HCL 10 MG TABLET PO (08:41)
[2022-01-06] MEDS: allopurinoL 100 MG TABLET PO (08:41)
[2022-01-06] MEDS: ACETAMINOPHEN 500 MG TABLET PO ×3 (08:45→22:00)
--- NOTE | 2022-01-06 10:37 | PM.PNNEP ---
Progress Note: A&P Assessment and Plan (1) End-stage renal disease on hemodialysis: Code(s): N18.6 - End stage renal disease; Z99.2 - Dependence on renal dialysis Status: Acute Assessment and Plan: the patient has end-stage renal disease. She is cared for by Dr. Holt. She had a dialysis yesterday. It went well Will schedule her next dialysis for Friday. (2) Chest pain: Code(s): R07.9 - Chest pain, unspecified Status: Acute Assessment and Plan: Chest pain is gone. Breathing is better since fluid was removed. (3) Facial droop: Code(s): R29.810 - Facial weakness Status: Acute Assessment and Plan: She feels better in this regard. Neurology saw the patient. (4) Hypertension: Code(s): I10 - Essential (primary) hypertension Status: Chronic Assessment and Plan: Blood pressure is under good control. (5) Renal osteodystrophy: Code(s): N25.0 - Renal osteodystrophy Status: Acute Assessment and Plan: Phosphorus level is normal (6) Anemia in chronic kidney disease: Code(s): N18.9 - Chronic kidney disease, unspecified; D63.1 - Anemia in chronic kidney disease Status: Acute Assessment and Plan: hemoglobin is 9.2 this morning. She received Epogen yesterday. Plan Subjective Date/time seen: 01/06/22 10:37 Interval history: This patient feels better today. Her shortness of breath is improved. She thinks that her speech and facial muscles are better as well. Review of Systems Cardiovascular: Cardiovascular: Reports no additional cardiovascular complaints Respiratory: Respiratory: Reports no additional respiratory complaints Gastrointestinal: Gastrointestinal: Reports no additional gastrointestinal complaints Genitourinary: Genitourinary: Reports no additional female genitourinary complaints Exam Narrative: WDWN in NAD skin no rash head ncat lungs clear cor reg no rub abd BS+ nontender and soft ext no edema. Objective Data Vital Signs Vital Signs: Vital Signs - 24 hr 01/05/22 12:00 01/05/22 12:00 01/05/22 14:00 Temperature 36.3 C L Pulse Rate 77 77 78 Respiratory Rate 18 Blood Pressure 123/56 L Pulse Oximetry 97 Oxygen Delivery 01/05/22 14:55 01/05/22 15:25 01/05/22 18:40 Temperature 36.5 C 36.6 C Pulse Rate 77 77 83 Respiratory Rate 16 16 Blood Pressure 122/62 110/63 121/67 Pulse Oximetry Oxygen Delivery 01/05/22 15:40 01/05/22 16:00 01/05/22 16:20 Temperature Pulse Rate 75 76 77 Respiratory Rate Blood Pressure 121/62 108/60 113/66 Pulse Oximetry Oxygen Delivery 01/05/22 16:40 01/05/22 17:00 01/05/22 17:20 Temperature Pulse Rate 77 78 78 Respiratory Rate Blood Pressure 108/68 125/67 106/67 Pulse Oximetry Oxygen Delivery 01/05/22 17:37 01/05/22 17:40 01/05/22 18:00 Temperature Pulse Rate 75 75 85 Respiratory Rate Blood Pressure 116/91 H 116/91 H 118/61 Pulse Oximetry Oxygen Delivery 01/05/22 18:20 01/05/22 16:00 01/05/22 18:00 Temperature Pulse Rate 86 77 84 Respiratory Rate Blood Pressure 97/62 L Pulse Oximetry Oxygen Delivery 01/05/22 19:05 01/05/22 21:08 01/05/22 20:00 Temperature 36.6 C Pulse Rate 84 82 84 Respiratory Rate 16 Blood Pressure 120/63 Pulse Oximetry 99 Oxygen Delivery 01/05/22 20:00 01/05/22 22:00 01/05/22 23:34 Temperature 36.3 C L Pulse Rate 84 83 83 Respiratory Rate 16 Blood Pressure 127/66 Pulse Oximetry 96 97 Oxygen Delivery Room Air 01/06/22 00:00 01/06/22 00:00 01/06/22 02:00 Temperature Pulse Rate 82 81 76 Respiratory Rate Blood Pressure Pulse Oximetry Oxygen Delivery Room Air 01/06/22 04:00 01/06/22 04:00 01/06/22 04:00 Temperature 36.4 C L Pulse Rate 82 80 80 Respiratory Rate 16 Blood Pressure 130/69 Pulse Oximetry 100 Oxygen De
--- NOTE | 2022-01-06 13:16 | PC.NURSE ---
This patient, Chito Paez, was received from [ IMU] on 01/06/22 at 1316. Patient/family oriented to unit policies and routines
--- NOTE | 2022-01-06 13:21 | PC.NURSE ---
This patient, Chito Paez, was transferred to [[id number] ] on 01/06/22 at 1315. Personal belongings sent with patient. Report given to [Jacinta CARNES ]. Appropriate documentation sent with patient.
--- NOTE | 2022-01-06 15:24 | PM.IMPN ---
Progress Note: A&P Assessment and Plan (1) Chest pain: Code(s): R07.9 - Chest pain, unspecified Status: Acute (2) Elevated troponin: Code(s): R77.8 - Other specified abnormalities of plasma proteins Status: Acute (3) Abnormal EKG: Code(s): R94.31 - Abnormal electrocardiogram [ECG] [EKG] Status: Acute (4) Hypertension: Code(s): I10 - Essential (primary) hypertension Status: Chronic (5) End-stage renal disease on hemodialysis: Code(s): N18.6 - End stage renal disease; Z99.2 - Dependence on renal dialysis Status: Acute (6) Facial droop: Code(s): R29.810 - Facial weakness Status: Acute Plan # chest pain atypical troponins are elevated but flat EKG with nonspecific ST-T changes. Chest x-ray with mild pulmonary edema cardiomegaly. Will recheck chest x-ray # generalized weakness check for underlying infection swab for COVID and flu he came back positive for COVID likely reason for generalized weakness # acute COVID infection no hypoxia noted. Symptoms since several days now. He has no hypoxia not a candidate for active treatment. Out of the window for remdesivir treatment or Decadron will recheck chest x-ray # facial droop concern for new stroke with left-sided weakness She does have history of stroke with left-sided residual deficits. CT head with areas of prior infarction without acute intracranial abnormality and age-related changes. Brain MRI could not be done due to pain pump. Carotid Doppler with no significant stenosis. echocardiogram Pending. continue on aspirin and statin as order. lipid profile optimal. A1c 4.6 # fall without any obvious injury. PT OT to see # hypertension # end-stage renal disease on hemodialysis chest x-ray with mild pulmonary edema. She is going for dialysis today. # hyperlipidemia # COPD # chronic pain syndrome with pain pump in situ # obstructive sleep apnea intolerant to CPAP # DVT prophylaxis heparin subQ # code status full code Subjective Date/time seen: 01/06/22 15:24 Interval history: This is a very pleasant 71-year-old female with history of stroke and residual left-sided weakness, end-stage renal disease on hemodialysis, hypertension, and chronic obstructive pulmonary disease who presented to the emergency department from home for evaluation of chest pain and facial droop. The patient reports intermittent, self-limiting midsternal chest pain over the past 48 hours which she describes as sharp and shooting in nature. She has perhaps some mild shortness of breath with that in it seems to occur most often when she is standing to pivot and transfer or walking short distances. The pain does not radiate and there are no other associated symptoms aside from mild shortness of breath. She apparently complains of chronic pain, frequently in her neck, back, and legs, and this is unchanged. Over the last couple of days the patient's daughter has noticed that she seems to be more weak and this morning the patient went to the bathroom where she sustained a fall (she is not really able to tell me how or why she fell) and when her daughter came to check on her she thought her face seemed to be drooping on the left side and she came in for evaluation. Brain CT done on arrival to the ER today showed areas of prior infarction without acute intracranial abnormality. Her troponin was mildly elevated but has remained flat. Her EKG showed borderline T-wave abnormalities in the anterior lateral and inferior leads and Q-waves in the precordial leads. She is not having any chest pain at the time my evaluation and in fact she really has no complaints at all. She denies vertigo, auditory and visual changes, dysarthria, dysphagia, paresthesias, and worsening weakness from baseline. She does not recall feeling lightheaded or dizzy prior to the fall today and states that she sustained no injuries.? She denies head trauma and loss of consciousness in the fall. S
[2022-01-06] MEDS: PANTOPRAZOLE 40 MG TABLET PO (21:58)
[2022-01-06] MEDS: SIMVASTATIN 20 MG TABLET PO (21:58)
[2022-01-07] VITALS (11 sets, daily range): BP systolic 116–135; BP diastolic 55–70; PULSE 75–90; RESP 14–18; TEMP 36–37.1; O2SAT 90–98
--- NOTE | 2022-01-07 | ECHO_ITS ---
Patient Info Name: Chito Paez Age: 71 years : 1950 Gender: Female Ht: 59 in Wt: 141 lbs BSA: 1.65 m2 HR: 83 bpm BP: 115 / 74 mmHg Heart Rhythm: Sinus Rhythm Exam Date: 01/07/2022 12:29 PM Exam Location: [facility] Patient Status: Inpatient Admit Date: 01/05/2022 Staff Ordering Physician: Cara Moon PA-C Unified Communications Architect: Joe Pelaez RDCS, RT Attending Provider: Guy Talavera MD Referring Physician: Sarai VILLA; Exam Type: CA echo doppler color flow Study Info Indications R94.31 - Abnormal electrocardiogram ECG EKG Complete two-dimensional, color flow and Doppler transthoracic echocardiogram is performed. Strain analysis performed. Summary 1. Left ventricular chamber dimension is normal. 2. Left ventricular systolic function is moderately reduced, estimated at 35-40% with moderate to severe hypokinesis of the mid inferoseptal and mid anteroseptal reyna. 3. There is moderately increased left ventricular wall thickness. 4. The left ventricular diastolic function is grade I diastolic dysfunction. 5. Global longitudinal strain is severely elevated at -11 %. Global strain mapping consistent with Bull's eye pattern which can be seen with cardiac amyloidosis. Clinical correlation advised. 6. There is no aortic valve stenosis. 7. There is mild mitral valve regurgitation. 8. There is mild tricuspid valve regurgitation. 9. Mild pulmonary hypertension, estimated pulmonary arterial systolic pressure is 43 mmHg. Left Ventricle Left ventricular chamber dimension is normal. Left ventricular systolic function is moderately reduced, estimated at 35-40% with moderate to severe hypokinesis of the mid inferoseptal and mid anteroseptal reyna. There is moderately increased left ventricular wall thickness. The left ventricular diastolic function is grade I diastolic dysfunction. Global longitudinal strain is severely elevated at -11 %. Global strain mapping consistent with Bull's eye pattern which can be seen with cardiac amyloidosis. Clinical correlation advised. Right Ventricle Right ventricular chamber dimension is normal. Right ventricular systolic function is normal. Left Atria Left atrial chamber dimension is normal. Right Atria Right atrial chamber dimension is normal. Aortic Valve The aortic valve is trileaflet. There is mild aortic valve sclerosis. There is no aortic valve stenosis. There is trace aortic valve regurgitation. Pulmonic Valve The pulmonic valve is not well visualized. There is mild pulmonic regurgitation. Mitral Valve The mitral valve has normal leaflets. There is mild mitral valve regurgitation. The mitral valve annulus is moderately calcified. Tricuspid Valve The tricuspid valve leaflets are normal. There is mild tricuspid valve regurgitation. Mild pulmonary hypertension, estimated pulmonary arterial systolic pressure is 43 mmHg. Pericardium/Pleural The pericardium appears normal. There is small pericardial effusion. Inferior Vena Cava Normal inferior vena cava with >50% collapse upon inspiration consistent with normal right atrial pressure, 5 mmHg. Aorta The aortic root size at the sinus of Valsalva is normal. There is moderate aortic atherosclerosis. Left Ventricular Outflow Tract Name Value Normal LV
[2022-01-07 06:09] LABS: Basophils Percent Auto 0.3 % (0.2-1.2); Eosinophils Absolute Auto 0.1 K/mm3 (0-0.3); Eosinophils Percent Auto 2.6 % (0-4.4); Hematocrit 28.9 % (37.0-47.0); Hemoglobin 9.1 g/dL (12.0-15.0); Immature Granulocyte Absolute 0.05 K/mm3 (0.00-0.031); Immature Granulocyte Percent A 1.5 % (0-0.5); Lymphocytes Absolute Auto 1.35 K/mm3 (0.9-3.2); Lymphocytes Percent Auto 39.6 % (18.3-44.2); Mean Corpuscular HGB Conc 31.5 g/dl (32-36); Mean Corpuscular Hemoglobin 30.4 pg (26-34); Mean Corpuscular Volume 96.7 fl (80-100); Mean Platelet Volume 10.6 fl (7.4-10.4); Monocytes Absolute Auto 0.3 K/mm3 (0.1-0.6); Monocytes Percent Auto 9.4 % (2.6-8.5); Neutrophils Absolute Auto 1.6 K/mm3 (1.3-6.7); Neutrophils Percent Auto 46.6 % (45.5-73.1); Platelet Count Result 110 k/mm3 (150-375); Red Blood Count 2.99 M/mm3 (4.2-5.4); Red Cell Distribution Width 14.5 % (11.5-14.5); White Blood Count 3.4 K/mm3 (4.5-10.0)
[2022-01-07 06:27] LABS: Alanine Aminotransferase 14 U/L (6-35); Albumin Level 3.1 g/dL (3.5-5.1); Alkaline Phosphatase 74 U/L (38-126); Anion Gap 11 mmol/L (8-16); Aspartate Amino Transferase 31 U/L (14-36); Bilirubin,Total 0.2 mg/dL (0.2-1.3); Blood Urea Nitrogen 33 mg/dL (7-17); Calcium 8.5 mg/dL (8.4-10.2); Carbon Dioxide 32 mmol/L (22-30); Chloride 93 mmol/L (98-107); Estimated Glomerular Filt Rate 8; Glucose 86 mg/dL (65-110); Magnesium 2.3 mg/dL (1.6-2.3); Phosphorus 2.4 mg/dL (2.5-4.5); Potassium 3.8 mmol/L (3.4-5.0); Sodium 136 mmol/L (137-145)
[2022-01-07] MEDS: ISOSORBIDE MONONITRATE 30 MG TAB.ER.24H PO (09:21)
[2022-01-07] MEDS: allopurinoL 100 MG TABLET PO (09:21)
[2022-01-07] MEDS: DONEPEZIL HCL 10 MG TABLET PO (09:21)
[2022-01-07] MEDS: CYCLOBENZAPRINE HCL 10 MG TABLET PO ×3 (09:21→17:27)
[2022-01-07] MEDS: amLODIPine BESYLATE 5 MG TABLET 10 MG PO (09:22)
[2022-01-07] MEDS: hydrALAZINE HCL 50 MG TABLET PO ×3 (09:22→17:27)
[2022-01-07] MEDS: ASPIRIN 81 MG CHEWABLE TABLET 324 MG PO (09:22)
[2022-01-07] MEDS: FUROSEMIDE 20 MG TABLET PO ×2 (09:22→17:27)
[2022-01-07] MEDS: carvediloL 12.5 MG TABLET PO ×2 (09:23→20:31)
[2022-01-07] MEDS: SEVELAMER CARBONATE 800 MG TABLET 1600 MG BY MOUTH ×3 (09:25→17:27)
[2022-01-07] MEDS: ACETAMINOPHEN 500 MG TABLET PO ×2 (10:38→20:35)
--- NOTE | 2022-01-07 13:26 | PM.PNNEP ---
Progress Note: A&P Assessment and Plan (1) End-stage renal disease on hemodialysis: Code(s): N18.6 - End stage renal disease; Z99.2 - Dependence on renal dialysis Status: Acute Assessment and Plan: HD tomorrow and continue T/T/S schedule follow electrolytes, volume status, and clearance (2) Chest pain: Code(s): R07.9 - Chest pain, unspecified Status: Acute Assessment and Plan: thought to be secondary mild fluid overload(?) no further episodes troponins and EKG results noted (3) Facial droop: Code(s): R29.810 - Facial weakness Status: Acute Assessment and Plan: concerning for possibe CVA CT of brain negative unable to do MRI Neurology recommendations noted (4) Hypertension: Code(s): I10 - Essential (primary) hypertension Status: Chronic Assessment and Plan: reasonable control follow trend of hemodynamics (5) Anemia: Code(s): D64.9 - Anemia, unspecified Status: Chronic Assessment and Plan: due to ESRD Epogen with HD follow trend of H/H Will continue to follow. Subjective Date/time seen: 01/07/22 13:26 Chart reviewed -- assuming care from Dr. Weber; no apparent distress voiced at the time of my visit; breathing/respiratory status seems stable if not better; no other issues/events overnight or earlier this morning. Exam Narrative: General: WD/WN AA female in NAD Heart: normal S1 and S2; no rub Lungs: clear to auscultation Abdomen: soft, nontender, nondistended, positive bowel sounds Extremities: no cyanosis or clubbing; no edema Skin: warm and dry Objective Data Vital Signs Vital Signs: Vital Signs Temp Pulse Resp BP Pulse Ox O2 Del Method 01/07/22 08:00 Room Air 01/07/22 09:23 80 01/07/22 06:00 36.1 C L 75 16 116/60 98 01/07/22 04:00 76 01/07/22 00:00 77 01/06/22 20:00 77 01/06/22 21:55 Room Air 01/06/22 22:00 36.0 C L 77 14 115/74 100 01/06/22 21:58 81 Intake/Output Intake/Output: Intake & Output 01/04/22 01/05/22 01/06/22 01/07/22 23:59 23:59 23:59 23:59 Intake Total 100 855 960 680 Output Total 2700 300 350 Balance 100 -7515 660 330 Meds/Results Medications: Active Medications Generic Name Dose Route Start Last Admin Trade Name Freq PRN Reason Stop Dose Admin Acetaminophen 500 mg 01/04/22 23:33 01/07/22 10:38 Acetaminophen 500 Mg Tablet PO 500 mg Q6H PRN Administration Pain (Scale Score 1-3) Albuterol 1 puff 01/04/22 23:33 Albuterol Sulfate (*Sp) Aerosol 1 Puff INHALATION Q4H PRN Shortness Of Breath Allopurinol 100 mg 01/05/22 08:00 01/07/22 09:21 Allopurinol 100 Mg Tablet PO 100 mg DAILY@0800 O[facility] Administration Amlodipine Besylate 10 mg 01/05/22 09:00 01/07/22 09:22 Amlodipine Besylate 5 Mg Tablet PO 10 mg QAM OLAF Administration Aspirin 324 mg 01/05/22 08:00 01/07/22 09:22 Aspirin 81 Mg Chewable Tablet PO 324 mg DAILY@0800 [facility] Administration Carvedilol 12.5 mg 01/04/22 23:35 01/07/22 09:23 Carvedilol 12.5 Mg Tablet PO 12.5 mg Q12HR OLAF Administration Cyclobenzaprine HCl 10 mg 01/05/22 09:00 01/07/22 12:04 Cyclobenzaprine Hcl 10 Mg Tablet PO 10 mg TID OLAF Administration Donepezil HCl 10 mg 01/05/22 09:00 01/07/22 09:21 Donepezil Hcl 10 Mg Tablet PO 10 mg DAILY OLAF Administration Fluticasone Propionate 2 spray 01/04/22 23:33 Fluticasone Propionate 0.05% Na Spr 16 Gm Btl (*Bkc) NASAL DAILY PRN Dry Nasal Passages Furosemide 20 mg 01/05/22 09:00 01/07/22 09:22 Furosemide 20 Mg Tablet PO 20 mg BID OLAF Administration Hydralazine HCl 50 mg 01/05/22 08:00 01/07/22 12:01 Hydralazine Hcl 50 Mg Tablet PO 50 mg TIDWM OLAF Administration Isosorbide Mononitrate 30 mg 01/05/22 09:00 01/07/22 09:21 Isosorbide Mononitrate 30 Mg Tab.Er.24h PO 30 mg
--- NOTE | 2022-01-07 13:26 | P.PNNP_ITS ---
Progress Note: A&P Assessment and Plan (1) End-stage renal disease on hemodialysis: Code(s): N18.6 - End stage renal disease; Z99.2 - Dependence on renal dialysis Status: Acute Assessment and Plan: * HD tomorrow and continue T/T/S schedule * follow electrolytes, volume status, and clearance (2) Chest pain: Code(s): R07.9 - Chest pain, unspecified Status: Acute Assessment and Plan: * thought to be secondary mild fluid overload(?) * no further episodes * troponins and EKG results noted (3) Facial droop: Code(s): R29.810 - Facial weakness Status: Acute Assessment and Plan: * concerning for possibe CVA * CT of brain negative * unable to do MRI * Neurology recommendations noted (4) Hypertension: Code(s): I10 - Essential (primary) hypertension Status: Chronic Assessment and Plan: * reasonable control * follow trend of hemodynamics (5) Anemia: Code(s): D64.9 - Anemia, unspecified Status: Chronic Assessment and Plan: * due to ESRD * Epogen with HD * follow trend of H/H Will continue to follow. Subjective Date/time seen: 01/07/22 13:26 Chart reviewed -- assuming care from Dr. Weber; no apparent distress voiced at the time of my visit; breathing/respiratory status seems stable if not better; no other issues/events overnight or earlier this morning. Exam Narrative: General: WD/WN AA female in NAD Heart: normal S1 and S2; no rub Lungs: clear to auscultation Abdomen: soft, nontender, nondistended, positive bowel sounds Extremities: no cyanosis or clubbing; no edema Skin: warm and dry Objective Data Vital Signs Vital Signs: Vital Signs Temp Pulse Resp BP Pulse Ox O2 Del Method 01/07/22 08:00 Room Air 01/07/22 09:23 80 01/07/22 06:00 36.1 C L 75 16 116/60 98 01/07/22 04:00 76 01/07/22 00:00 77 01/06/22 20:00 77 01/06/22 21:55 Room Air 01/06/22 22:00 36.0 C L 77 14 115/74 100 01/06/22 21:58 81 Intake/Output Intake/Output: Intake & Output 01/04/22 01/05/22 01/06/22 01/07/22 23:59 23:59 23:59 23:59 Intake Total 100 855 960 680 Output Total 2700 300 350 Balance 100 -6835 660 330 Meds/Results Medications: Active Medications Generic Name Dose Route Start Last Admin Trade Name Freq PRN Reason Stop Dose Admin Acetaminophen 500 mg 01/04/22 23:33 01/07/22 10:38 Acetaminophen 500 Mg Tablet PO 500 mg Q6H PRN Administration Pain (Scale Score 1-3) Albuterol 1 puff 01/04/22 23:33 Albuterol Sulfate (*Sp) Aerosol 1 Puff INHALATION Q4H PRN Shortness Of Breath Allopurinol 100 mg 01/05/22 08:00 01/07/22 09:21 Allopurinol 100 Mg Tablet PO 100 mg DAILY@0800 [facility] Administration Amlodipine Besylate 10 mg 01/05/22 09:00 01/07/22 09:22 Amlodipine Besylate 5 Mg Tablet PO 10 mg QAM OLAF Administration Aspirin 324 mg 01/05/22 08:00 01/07/22 09:22 Aspirin 81 Mg Chewable Tablet PO 324 mg DAILY@0800 [facility] Administration Carv
--- NOTE | 2022-01-07 14:37 | PCPTNOTE ---
Patient refused treatment this session. Patient did not give reason why, patient reported not today ( meaning therapy).
--- NOTE | 2022-01-07 17:48 | PM.IMPN ---
Progress Note: A&P Assessment and Plan (1) Chest pain: Code(s): R07.9 - Chest pain, unspecified Status: Acute (2) Elevated troponin: Code(s): R77.8 - Other specified abnormalities of plasma proteins Status: Acute (3) Abnormal EKG: Code(s): R94.31 - Abnormal electrocardiogram [ECG] [EKG] Status: Acute (4) Hypertension: Code(s): I10 - Essential (primary) hypertension Status: Chronic (5) End-stage renal disease on hemodialysis: Code(s): N18.6 - End stage renal disease; Z99.2 - Dependence on renal dialysis Status: Acute (6) Facial droop: Code(s): R29.810 - Facial weakness Status: Acute Plan # chest pain atypical troponins are elevated but flat EKG with nonspecific ST-T changes. Chest x-ray with mild pulmonary edema cardiomegaly. recheck chest x-ray with atelectasis changes on the left side. Incentive spirometry # generalized weakness check for underlying infection swab for COVID and flu he came back positive for COVID likely reason for generalized weakness # acute COVID infection no hypoxia noted. Symptoms since several days now. He has no hypoxia not a candidate for active treatment. Out of the window for remdesivir treatment or Decadron recheck chest x-ray with atelectatic changes. # facial droop concern for new stroke with left-sided weakness She does have history of stroke with left-sided residual deficits. CT head with areas of prior infarction without acute intracranial abnormality and age-related changes. Brain MRI could not be done due to pain pump. Carotid Doppler with no significant stenosis. echocardiogram With systolic dysfunction 35-40%. Not sure this is old. Try to get old records however could not find 1. Discussed with daughter with going to look into records she finds 1. She does see representative personal service in [place]. She is already on aspirin and statin which will be continued. lipid profile optimal. A1c 4.6 # fall without any obvious injury. PT OT to see # hypertension # end-stage renal disease on hemodialysis chest x-ray with mild pulmonary edema. She is going for dialysis today. # hyperlipidemia # COPD # chronic pain syndrome with pain pump in situ # obstructive sleep apnea intolerant to CPAP # DVT prophylaxis heparin subQ # code status full code Subjective Date/time seen: 01/07/22 17:48 Interval history: This is a very pleasant 71-year-old female with history of stroke and residual left-sided weakness, end-stage renal disease on hemodialysis, hypertension, and chronic obstructive pulmonary disease who presented to the emergency department from home for evaluation of chest pain and facial droop. The patient reports intermittent, self-limiting midsternal chest pain over the past 48 hours which she describes as sharp and shooting in nature. She has perhaps some mild shortness of breath with that in it seems to occur most often when she is standing to pivot and transfer or walking short distances. The pain does not radiate and there are no other associated symptoms aside from mild shortness of breath. She apparently complains of chronic pain, frequently in her neck, back, and legs, and this is unchanged. Over the last couple of days the patient's daughter has noticed that she seems to be more weak and this morning the patient went to the bathroom where she sustained a fall (she is not really able to tell me how or why she fell) and when her daughter came to check on her she thought her face seemed to be drooping on the left side and she came in for evaluation. Brain CT done on arrival to the ER today showed areas of prior infarction without acute intracranial abnormality. Her troponin was mildly elevated but has remained flat. Her EKG showed borderline T-wave abnormalities in the anterior lateral and inferior leads and Q-waves in the precordial leads. She is not having any chest pain at the time my evaluation and in fact she really has no complain
[2022-01-07] MEDS: PANTOPRAZOLE 40 MG TABLET PO (20:31)
[2022-01-07] MEDS: SIMVASTATIN 20 MG TABLET PO (20:31)
[2022-01-08] VITALS (24 sets, daily range): BP systolic 97–148; BP diastolic 56–80; PULSE 75–86; RESP 16–18; TEMP 36–36.6; O2SAT 93–100
[2022-01-08 06:55] LABS: Basophils Percent Auto 0.2 % (0.2-1.2); Eosinophils Absolute Auto 0.1 K/mm3 (0-0.3); Eosinophils Percent Auto 2.4 % (0-4.4); Hematocrit 29.4 % (37.0-47.0); Hemoglobin 9.3 g/dL (12.0-15.0); Immature Granulocyte Absolute 0.05 K/mm3 (0.00-0.031); Immature Granulocyte Percent A 1.2 % (0-0.5); Immature Platelet Fraction Pct 4.4 % (0.9-11.2); Lymphocytes Absolute Auto 1.43 K/mm3 (0.9-3.2); Lymphocytes Percent Auto 34.8 % (18.3-44.2); Mean Corpuscular HGB Conc 31.6 g/dl (32-36); Mean Corpuscular Hemoglobin 30.1 pg (26-34); Mean Corpuscular Volume 95.1 fl (80-100); Mean Platelet Volume 10.4 fl (7.4-10.4); Monocytes Absolute Auto 0.3 K/mm3 (0.1-0.6); Monocytes Percent Auto 7.8 % (2.6-8.5); Neutrophils Absolute Auto 2.2 K/mm3 (1.3-6.7); Neutrophils Percent Auto 53.6 % (45.5-73.1); Platelet Count Result 110 k/mm3 (150-375); Red Blood Count 3.09 M/mm3 (4.2-5.4); Red Cell Distribution Width 14.3 % (11.5-14.5); White Blood Count 4.1 K/mm3 (4.5-10.0)
[2022-01-08 07:08] LABS: Alanine Aminotransferase 15 U/L (6-35); Albumin Level 3.1 g/dL (3.5-5.1); Alkaline Phosphatase 73 U/L (38-126); Anion Gap 11 mmol/L (8-16); Aspartate Amino Transferase 32 U/L (14-36); Bilirubin,Total 0.2 mg/dL (0.2-1.3); Blood Urea Nitrogen 39 mg/dL (7-17); Calcium 8.4 mg/dL (8.4-10.2); Carbon Dioxide 32 mmol/L (22-30); Chloride 93 mmol/L (98-107); Estimated Glomerular Filt Rate 6; Glucose 82 mg/dL (65-110); Potassium 3.8 mmol/L (3.4-5.0); Sodium 136 mmol/L (137-145)
[2022-01-08] MEDS: hydrALAZINE HCL 50 MG TABLET PO (08:47)
[2022-01-08] MEDS: ISOSORBIDE MONONITRATE 30 MG TAB.ER.24H PO (08:47)
[2022-01-08] MEDS: ASPIRIN 81 MG CHEWABLE TABLET 324 MG PO (08:47)
[2022-01-08] MEDS: carvediloL 12.5 MG TABLET PO ×2 (08:47→20:32)
[2022-01-08] MEDS: SEVELAMER CARBONATE 800 MG TABLET 1600 MG BY MOUTH ×2 (08:48→17:19)
[2022-01-08] MEDS: allopurinoL 100 MG TABLET PO (08:49)
[2022-01-08] MEDS: FUROSEMIDE 20 MG TABLET PO ×2 (08:49→17:19)
[2022-01-08] MEDS: amLODIPine BESYLATE 5 MG TABLET 10 MG PO (08:50)
[2022-01-08] MEDS: DONEPEZIL HCL 10 MG TABLET PO (08:50)
[2022-01-08] MEDS: CYCLOBENZAPRINE HCL 10 MG TABLET PO ×3 (08:53→17:19)
--- NOTE | 2022-01-08 11:01 | PCPTNOTE ---
Attempted to see patient for PT at tis time, however per RN patient is going to dialysis.
--- NOTE | 2022-01-08 11:44 | PM.PNNEP ---
Progress Note: A&P Assessment and Plan (1) End-stage renal disease on hemodialysis: Code(s): N18.6 - End stage renal disease; Z99.2 - Dependence on renal dialysis Status: Acute Assessment and Plan: HD today and continue T/T/S schedule follow electrolytes, volume status, and clearance (2) Chest pain: Code(s): R07.9 - Chest pain, unspecified Status: Acute Assessment and Plan: thought to be secondary mild fluid overload(?) no further episodes troponins and EKG results noted (3) Facial droop: Code(s): R29.810 - Facial weakness Status: Acute Assessment and Plan: concerning for possibe CVA CT of brain negative unable to do MRI Neurology recommendations noted (4) Hypertension: Code(s): I10 - Essential (primary) hypertension Status: Chronic Assessment and Plan: reasonable control follow trend of hemodynamics (5) Anemia: Code(s): D64.9 - Anemia, unspecified Status: Chronic Assessment and Plan: due to ESRD Epogen with HD follow trend of H/H Will continue to follow. Subjective Date/time seen: 01/08/22 11:44 Tolerating dialysis at the time of my visit (seen on HD at 11:35AM); no new issues or problems to report; feels reasonably well; no other events overnight or earlier this AM. Exam Narrative: General: WD/WN AA female in NAD Heart: normal S1 and S2; no rub Lungs: clear to auscultation Abdomen: soft, nontender, nondistended, positive bowel sounds Extremities: no cyanosis or clubbing; no edema Skin: warm and intact Objective Data Vital Signs Vital Signs: Vital Signs - 24 hr 01/07/22 14:00 01/07/22 12:00 01/07/22 20:31 Temperature 36.4 C L Pulse Rate 76 86 81 Respiratory Rate 14 Blood Pressure 117/55 L Pulse Oximetry 96 Oxygen Delivery 01/07/22 20:00 01/07/22 23:30 01/07/22 20:00 Temperature 37.1 C 36.0 C L Pulse Rate 81 79 81 Respiratory Rate 18 16 Blood Pressure 128/70 135/70 Pulse Oximetry 98 90 Oxygen Delivery 01/07/22 20:00 01/08/22 00:00 01/08/22 03:53 Temperature 36.2 C L Pulse Rate 78 80 Respiratory Rate 16 Blood Pressure 132/58 L Pulse Oximetry 98 Oxygen Delivery Room Air 01/08/22 04:00 01/07/22 16:00 01/08/22 08:00 Temperature 36.6 C Pulse Rate 75 90 79 Respiratory Rate 18 Blood Pressure 148/73 H Pulse Oximetry 100 Oxygen Delivery 01/08/22 08:47 01/08/22 08:00 01/08/22 08:00 Temperature Pulse Rate 81 85 82 Respiratory Rate Blood Pressure Pulse Oximetry 93 Oxygen Delivery Room Air Intake/Output Intake/Output: Intake & Output 01/05/22 01/06/22 01/07/22 01/08/22 23:59 23:59 23:59 23:59 Intake Total 855 960 980 300 Output Total 2700 300 600 Balance -1845 660 380 300 Meds/Results Medications: Active Medications Generic Name Dose Route Start Last Admin Trade Name Freq PRN Reason Stop Dose Admin Acetaminophen 500 mg 01/04/22 23:33 01/07/22 20:35 Acetaminophen 500 Mg Tablet PO 500 mg Q6H PRN Administration Pain (Scale Score 1-3) Albuterol 1 puff 01/04/22 23:33 Albuterol Sulfate (*Sp) Aerosol 1 Puff INHALATION Q4H PRN Shortness Of Breath Allopurinol 100 mg 01/05/22 08:00 01/08/22 08:49 Allopurinol 100 Mg Tablet PO 100 mg DAILY@0800 [facility] Administration Amlodipine Besylate 10 mg 01/05/22 09:00 01/08/22 08:50 Amlodipine Besylate 5 Mg Tablet PO 10 mg QAM OLAF Administration Aspirin 324 mg 01/05/22 08:00 01/08/22 08:47 Aspirin 81 Mg Chewable Tablet PO 324 mg DAILY@0800 [facility] Administration Carvedilol 12.5 mg 01/04/22 23:35 01/08/22 08:47 Carvedilol 12.5 Mg Tablet PO 12.5 mg Q12HR OLAF Administration Cyclobenzaprine HCl 10 mg 01/05/22 09:00 01/08/22 08:53 Cyclobenzaprine Hcl 10 Mg Tablet PO 10 mg TID OLAF Administration Donepezil HCl 10 mg 01/05/22 09:00 01/08/22 08:50 Donepezil Hcl 10
--- NOTE | 2022-01-08 13:32 | PCOTNOTE ---
Patient in dialysis, not seen for OT this date.
[2022-01-08] MEDS: EPOETIN ALFA-EPBX 10,000 UNITS/ML VIAL 10000 UNITS IV PUSH (13:48)
[2022-01-08] MEDS: SODIUM CHLORIDE 0.9% IV 1,000 ML 999 ML IV CONT (13:48)
--- NOTE | 2022-01-08 13:48 | PCPTNOTE ---
The patient treatment was not able to be completed on 01/08/22 due to patient out of room for dialysis. Will plan to continue treatment per plan of care.
--- NOTE | 2022-01-08 14:52 | PM.IMPN ---
Progress Note: A&P Assessment and Plan (1) Chest pain: Code(s): R07.9 - Chest pain, unspecified Status: Acute (2) Elevated troponin: Code(s): R77.8 - Other specified abnormalities of plasma proteins Status: Acute (3) Abnormal EKG: Code(s): R94.31 - Abnormal electrocardiogram [ECG] [EKG] Status: Acute (4) Hypertension: Code(s): I10 - Essential (primary) hypertension Status: Chronic (5) End-stage renal disease on hemodialysis: Code(s): N18.6 - End stage renal disease; Z99.2 - Dependence on renal dialysis Status: Acute (6) Facial droop: Code(s): R29.810 - Facial weakness Status: Acute Plan # chest pain atypical troponins are elevated but flat EKG with nonspecific ST-T changes. Chest x-ray with mild pulmonary edema cardiomegaly. recheck chest x-ray with atelectasis changes on the left side. Incentive spirometry added. No further chest pain reported. Her echocardiogram did come back with worsened LVEF down to 35-40% with moderate to severe hypokinesis of the mid inferior septal and mid anteroseptal reyna. Will consult Cardiology. Echo obtained that was done at 04/2021 to where her LVEF was normal at that time # generalized weakness check for underlying infection swab for COVID and flu he came back positive for COVID likely reason for generalized weakness # acute COVID infection no hypoxia noted. Symptoms since several days now. He has no hypoxia not a candidate for active treatment. Out of the window for remdesivir treatment or Decadron recheck chest x-ray with atelectatic changes. # facial droop concern for new stroke with left-sided weakness She does have history of stroke with left-sided residual deficits. CT head with areas of prior infarction without acute intracranial abnormality and age-related changes. Brain MRI could not be done due to pain pump. Carotid Doppler with no significant stenosis. echocardiogram With systolic dysfunction 35-40%. Not sure this is old. Try to get old records however could not find 1. Discussed with daughter with going to look into records she finds 1. She does see senior c web developer in [place]. She is already on aspirin and statin which will be continued. lipid profile optimal. A1c 4.6. Obtain echo which used to be normal EF back from 05/19. # fall without any obvious injury. PT OT to see # hypertension # end-stage renal disease on hemodialysis chest x-ray with mild pulmonary edema.She is getting inpatient hemodialysis here # hyperlipidemia # COPD # chronic pain syndrome with pain pump in situ # obstructive sleep apnea intolerant to CPAP # DVT prophylaxis heparin subQ # code status full code Subjective Date/time seen: 01/08/22 14:52 Interval history: This is a very pleasant 71-year-old female with history of stroke and residual left-sided weakness, end-stage renal disease on hemodialysis, hypertension, and chronic obstructive pulmonary disease who presented to the emergency department from home for evaluation of chest pain and facial droop. The patient reports intermittent, self-limiting midsternal chest pain over the past 48 hours which she describes as sharp and shooting in nature. She has perhaps some mild shortness of breath with that in it seems to occur most often when she is standing to pivot and transfer or walking short distances. The pain does not radiate and there are no other associated symptoms aside from mild shortness of breath. She apparently complains of chronic pain, frequently in her neck, back, and legs, and this is unchanged. Over the last couple of days the patient's daughter has noticed that she seems to be more weak and this morning the patient went to the bathroom where she sustained a fall (she is not really able to tell me how or why she fell) and when her daughter came to check on her she thought her face seemed to be drooping on the left side and she came in for foreign
[2022-01-08] MEDS: ACETAMINOPHEN 500 MG TABLET PO (17:20)
[2022-01-08] MEDS: PANTOPRAZOLE 40 MG TABLET PO (20:32)
[2022-01-08] MEDS: SIMVASTATIN 20 MG TABLET PO (20:32)
[2022-01-09] VITALS (7 sets, daily range): BP systolic 116–125; BP diastolic 61–68; PULSE 77–86; RESP 12–18; TEMP 36.1–36.6; O2SAT 100
[2022-01-09 06:50] LABS: Basophils Percent Auto 0.5 % (0.2-1.2); Eosinophils Absolute Auto 0.2 K/mm3 (0-0.3); Eosinophils Percent Auto 2.9 % (0-4.4); Hematocrit 33.1 % (37.0-47.0); Hemoglobin 10.4 g/dL (12.0-15.0); Immature Granulocyte Absolute 0.11 K/mm3 (0.00-0.031); Immature Granulocyte Percent A 1.9 % (0-0.5); Immature Platelet Fraction Pct 6.1 % (0.9-11.2); Lymphocytes Absolute Auto 1.88 K/mm3 (0.9-3.2); Lymphocytes Percent Auto 32.3 % (18.3-44.2); Mean Corpuscular HGB Conc 31.4 g/dl (32-36); Mean Corpuscular Hemoglobin 30.5 pg (26-34); Mean Corpuscular Volume 97.1 fl (80-100); Mean Platelet Volume 10.9 fl (7.4-10.4); Monocytes Absolute Auto 0.7 K/mm3 (0.1-0.6); Monocytes Percent Auto 11.2 % (2.6-8.5); Neutrophils Percent Auto 51.2 % (45.5-73.1); Nucleated Red Blood Cells Perc 0.5 % (0.0-0.2); Platelet Count Result 132 k/mm3 (150-375); Red Blood Count 3.41 M/mm3 (4.2-5.4); Red Cell Distribution Width 14.6 % (11.5-14.5); White Blood Count 5.8 K/mm3 (4.5-10.0)
[2022-01-09 06:55] LABS: Alanine Aminotransferase 20 U/L (6-35); Albumin Level 3.6 g/dL (3.5-5.1); Alkaline Phosphatase 84 U/L (38-126); Anion Gap 10 mmol/L (8-16); Aspartate Amino Transferase 41 U/L (14-36); Bilirubin,Total 0.3 mg/dL (0.2-1.3); Blood Urea Nitrogen 18 mg/dL (7-17); Carbon Dioxide 30 mmol/L (22-30); Chloride 97 mmol/L (98-107); Estimated Glomerular Filt Rate 11; Glucose 86 mg/dL (65-110); Magnesium 2.2 mg/dL (1.6-2.3); Sodium 137 mmol/L (137-145)
[2022-01-09] MEDS: CYCLOBENZAPRINE HCL 10 MG TABLET PO ×2 (09:04→12:25)
[2022-01-09] MEDS: carvediloL 12.5 MG TABLET PO (09:04)
[2022-01-09] MEDS: amLODIPine BESYLATE 5 MG TABLET 10 MG PO (09:05)
[2022-01-09] MEDS: SEVELAMER CARBONATE 800 MG TABLET 1600 MG BY MOUTH ×2 (09:05→12:25)
[2022-01-09] MEDS: ASPIRIN 81 MG CHEWABLE TABLET 324 MG PO (09:08)
[2022-01-09] MEDS: allopurinoL 100 MG TABLET PO (09:09)
[2022-01-09] MEDS: DONEPEZIL HCL 10 MG TABLET PO (09:10)
[2022-01-09] MEDS: ISOSORBIDE MONONITRATE 30 MG TAB.ER.24H PO (09:10)
[2022-01-09] MEDS: hydrALAZINE HCL 50 MG TABLET PO (09:10)
[2022-01-09] MEDS: FUROSEMIDE 20 MG TABLET PO (09:10)
--- NOTE | 2022-01-09 10:43 | PM.CNCAR ---
Assessment and Plan Assessment and plan (1) Cardiomyopathy: Qualifiers: Cardiomyopathy type: other Qualified Code(s): I42.8 - Other cardiomyopathies Code(s): I42.9 - Cardiomyopathy, unspecified Status: Acute Assessment and Plan: new diagnosis LV systolic dysfunction EF 35-40% with moderate to severe hypokinesis of the mid inferoseptal and mid anteroseptal reyna moderate concentric LVH severely elevated global strain pattern at -11% and global strain mapping consistent with bull's-eye pattern concerning for amyloidosis. Given patient's age, LV dysfunction with LVH, history of bilateral carpal tunnel disease and polyneuropathy this would also supports concern for amyloidosis and warrants further evaluation. She is not likely a candidate for cardiac MRI given implanted pain pump. Alternate imaging may be considered. Start with kappa/lambda light chain ratio and serum immunofixation. She will follow up as an outpatient with her qa architect Dr. Reinoso within the next 2-4 weeks for further management. She is well compensated at this time. She remains on hydralazine and nitrate therapy along with carvedilol. She reports symptoms consistent with NYHA class III sxs. Presentation is not consistent with ACD nor does she report clear anginal sxs. I do not have prior records available so cannot exclude known underlying CAD although patient denies any prior knowledge of history of heart attack, CAD, coronary angiography or stent implantation. Unlikely her COVID diagnosis is presenting a significant contribution in this regard although this cannot be entirely excluded. While I suppose myocarditis cannot be entirely excluded, given her presentation, clinical sxs and Echo strain suggestive of amyloidosis this remains a primary consideration until proven otherwise. explained this all to the patient who verbalized understanding and agreed with plan of care. All questions answered to her satisfaction. -No further changes to medical regimen at this time Although the addition of Entresto, Jardiance, and/or Spironolactone should be considered will defer this to her qa architect as an outpatient particularly as her blood pressure is stable but marginal at times. Disposition per hospitalist service. -She may tolerate uptitration of carvedilol to 25 mg twice daily so will make this recommendation at present. reduce amlodipine to 5 mg daily to improve likelihood of tolerance related to her blood pressure. Consider discontinuation with further optimization of GDMT for new cardiomyopathy. -Patient clinically stable for discharge from cardiac perspective at present. (2) Elevated troponin: Code(s): R77.8 - Other specified abnormalities of plasma proteins Status: Acute Assessment and Plan: Mild elevation flat curve with atypical chest pain most likely musculoskeletal worse with coughing currently resolved. Can not exclude underlying CAD given wall motion abnormalities and new LV systolic dysfunction particularly in light of patient's age and risk factors including this stage renal disease on hemodialysis, hypertension, hyperlipidemia. Continue aspirin, statin and beta-rene therapy for now. Outpatient ischemic evaluation to exclude CAD if this is not known or has not been performed recently. ECG suggestive of possible old septal infarction no previous ECG for comparison available. (3) COVID-19: Code(s): U07.1 - COVID-19 Status: Acute Assessment and Plan: Management per primary service. She remains in isolation per protocol. (4) Hypertension: Code(s): I10 - Essential (primary) hypertension Status: Chronic Assessment and Plan: As above, stable, tolerating medical therapy at this time. (5) History of CVA (cerebrovascular accident): Code(s): Z86.73 - Personal history of transient ischemic attack (TIA), and cerebral infarction without residual deficits Status:
--- NOTE | 2022-01-09 11:56 | WPDNEUROPN ---
Subjective Date/time seen: 01/09/22 11:56 Interval history: seen initially for left-sided facial droop with ongoing multiple problems including end-stage renal disease for which patient is on hemodialysis echocardiogram documented left ventricle systolic function moderately reduced to 35 to 40% with increased left ventricular wall thickness global lung maturity neural strain and mild mitral wall and tricuspid wall regurgitation cardiology consultation was obtained for the left ventricular systolic dysfunction and ejection fraction of 35 to 40% mapping was consistent with a bull's-eye pattern concerning for the possibility of amyloidosis in addition to the history of the numbness of the hand and polyneuropathy right consideration was made for the possibility of amyloidosis patient has the implanted pain pump serum immunoelectrophoresis has been ordered and she will be followed by the her folder seamer automatic as an outpatient Objective Data Vital Signs Vital Signs: Vital Signs - 24 hr 01/08/22 12:00 01/08/22 12:40 01/08/22 13:40 Temperature Pulse Rate 77 76 78 Respiratory Rate Blood Pressure 113/73 115/62 Pulse Oximetry Oxygen Delivery 01/08/22 14:00 01/08/22 12:00 01/08/22 12:20 Temperature Pulse Rate 81 77 77 Respiratory Rate Blood Pressure 101/63 129/68 128/69 Pulse Oximetry Oxygen Delivery 01/08/22 13:00 01/08/22 13:20 01/08/22 14:20 Temperature Pulse Rate 78 82 80 Respiratory Rate Blood Pressure 109/63 107/61 99/64 L Pulse Oximetry Oxygen Delivery 01/08/22 15:00 01/08/22 14:40 01/08/22 15:14 Temperature Pulse Rate 80 80 85 Respiratory Rate Blood Pressure 101/64 108/61 105/65 Pulse Oximetry Oxygen Delivery 01/08/22 15:20 01/08/22 16:00 01/08/22 16:00 Temperature 36.6 C 36.6 C Pulse Rate 81 84 86 Respiratory Rate 16 18 Blood Pressure 122/67 97/59 L Pulse Oximetry 97 Oxygen Delivery 01/08/22 20:32 01/08/22 20:35 01/08/22 20:00 Temperature Pulse Rate 84 85 Respiratory Rate Blood Pressure Pulse Oximetry Oxygen Delivery Room Air 01/08/22 21:56 01/09/22 00:00 01/09/22 04:00 Temperature 36.2 C L Pulse Rate 82 77 79 Respiratory Rate 18 Blood Pressure 99/56 L Pulse Oximetry 99 Oxygen Delivery 01/09/22 05:35 01/09/22 08:00 01/09/22 09:04 Temperature 36.6 C 36.4 C Pulse Rate 78 77 77 Respiratory Rate 18 12 Blood Pressure 122/64 125/61 Pulse Oximetry 100 100 Oxygen Delivery 01/09/22 08:00 01/09/22 08:00 Temperature Pulse Rate 85 Respiratory Rate Blood Pressure Pulse Oximetry 100 Oxygen Delivery Room Air Intake/Output Intake/Output: Intake & Output 01/06/22 01/07/22 01/08/22 01/09/22 23:59 23:59 23:59 23:59 Intake Total 960 980 900 370 Output Total 188 162 2370 500 Balance 660 380 -1900 -130 Meds/Results Medications: Active Medications Generic Name Dose Route Start Last Admin Trade Name Freq PRN Reason Stop Dose Admin Acetaminophen 500 mg 01/04/22 23:33 01/08/22 17:20 Acetaminophen 500 Mg Tablet PO 500 mg Q6H PRN Administration Pain (Scale Score 1-3) Albuterol 1 puff 01/04/22 23:33 Albuterol Sulfate (*Sp) Aerosol 1 Puff INHALATION Q4H PRN Shortness Of Breath Allopurinol 100 mg 01/05/22 08:00 01/09/22 09:09 Allopurinol 100 Mg Tablet PO 100 mg DAILY@0800 [facility] Administration Amlodipine Besylate 5 mg 01/10/22 09:00 Amlodipine Besylate 5 Mg Tablet PO QAM [facility] Aspirin 324 mg 01/05/22 08:00 01/09/22 09:08 Aspirin 81 Mg Chewable Tablet PO 324 mg DAILY@0800 [facility] Administration Carvedilol 25 mg 01/09/22 21:00 Carvedilol 25 Mg Tablet PO Q12HR [facility] Cyclobenzaprine HCl 10 mg 01/05/22 09:00 01/09/22 09:04 Cyclobenzaprine Hcl 10 Mg Tablet PO 10 mg TID [facility] Administration Donepezil HCl 10 mg 01/05/22 09:00 01/09/22 09:10 Donepezil Hcl 10 Mg Tablet PO 10 mg DAILY [facility] Admini
--- NOTE | 2022-01-09 13:29 | PM.DS ---
DS: Admitting Diagnosis Discharge Date January 09, 2022 Admitting Diagnosis Chest pain with facial droop DS: Discharge Diagnosis Discharge Diagnosis (1) Chest pain: Code(s): R07.9 - Chest pain, unspecified Status: Acute (2) Elevated troponin: Code(s): R77.8 - Other specified abnormalities of plasma proteins Status: Acute (3) Abnormal EKG: Code(s): R94.31 - Abnormal electrocardiogram [ECG] [EKG] Status: Acute (4) Hypertension: Code(s): I10 - Essential (primary) hypertension Status: Chronic (5) End-stage renal disease on hemodialysis: Code(s): N18.6 - End stage renal disease; Z99.2 - Dependence on renal dialysis Status: Acute (6) Facial droop: Code(s): R29.810 - Facial weakness Status: Acute Plan # chest pain atypical troponins are elevated but flat EKG with nonspecific ST-T changes. Chest x-ray with mild pulmonary edema cardiomegaly. recheck chest x-ray with atelectasis changes on the left side. Incentive spirometry added. No further chest pain reported. Her echocardiogram did come back with worsened LVEF down to 35-40% with moderate to severe hypokinesis of the mid inferior septal and mid anteroseptal reyna. Will consult Cardiology. Echo obtained that was done at 04/2021 to where her LVEF was normal at that time # generalized weakness check for underlying infection swab for COVID and flu he came back positive for COVID likely reason for generalized weakness # acute COVID infection no hypoxia noted. Symptoms since several days now. He has no hypoxia not a candidate for active treatment. Out of the window for remdesivir treatment or Decadron recheck chest x-ray with atelectatic changes. # facial droop concern for new stroke with left-sided weakness She does have history of stroke with left-sided residual deficits. CT head with areas of prior infarction without acute intracranial abnormality and age-related changes. Brain MRI could not be done due to pain pump. Carotid Doppler with no significant stenosis. echocardiogram With systolic dysfunction 35-40%. Not sure this is old. Try to get old records however could not find 1. Discussed with daughter with going to look into records she finds 1. She does see store grocery merchandiser in [place]. She is already on aspirin and statin which will be continued. lipid profile optimal. A1c 4.6. Obtain echo which used to be normal EF back from 05/19. # fall without any obvious injury. PT OT to see # hypertension # end-stage renal disease on hemodialysis chest x-ray with mild pulmonary edema.She is getting inpatient hemodialysis here # hyperlipidemia # COPD # chronic pain syndrome with pain pump in situ # obstructive sleep apnea intolerant to CPAP # DVT prophylaxis heparin subQ # code status full code DS: Summary Hospital Course Hospital Course: 71-year-old female with history of stroke and residual left-sided weakness, end-stage renal disease on hemodialysis, hypertension, and chronic obstructive pulmonary disease who presented to the emergency department from home for evaluation of chest pain and facial droop. The patient reports intermittent, self-limiting midsternal chest pain over the past 48 hours which she describes as sharp and shooting in nature. She has perhaps some mild shortness of breath with that in it seems to occur most often when she is standing to pivot and transfer or walking short distances. The pain does not radiate and there are no other associated symptoms aside from mild shortness of breath. She apparently complains of chronic pain, frequently in her neck, back, and legs, and this is unchanged. Over the last couple of days the patient's daughter has noticed that she seems to be more weak and this morning the patient went to the bathroom where she sustained a fall (she is not really able to tell me how or why she fell) and when her daughter came to check on her she thou
[2022-01-12 06:31] LABS: Lambda Light Chain 302.5 mg/L (5.7-26.3)
== END 2022-01-09 14:35 | disposition home or self-care (01) | DRG 545 ==
LOC: ANHED 13:59 → ANHIMU 18:14 → ANH3MEDSUR 01-06 13:08
PROVIDERS: Emergency Medicine; Internal Medicine; Internal Medicine Cardiovascular Disease; Internal Medicine Nephrology; Physician Assistant; Admitting Provider Chiropractor; Emergency Provider Emergency Medicine; PCP Internal Medicine Infectious Disease; Visit Provider Student in an Organized Health Care Education/Training Program
DX: E85.9 Amyloidosis, unspecified (principal); N18.6 End stage renal disease; U07.1 COVID-19; I12.0 Hypertensive chronic kidney disease with stage 5 chronic kidney disease or end stage renal disease; I69.354 Hemiplegia and hemiparesis following cerebral infarction affecting left non-dominant side; I42.8 Other cardiomyopathies; R07.89 Other chest pain; I69.311 Memory deficit following cerebral infarction; R47.89 Other speech disturbances; R29.810 Facial weakness; G89.4 Chronic pain syndrome; E78.5 Hyperlipidemia, unspecified; J44.9 Chronic obstructive pulmonary disease, unspecified; G47.33 Obstructive sleep apnea (adult) (pediatric); D63.1 Anemia in chronic kidney disease; M19.90 Unspecified osteoarthritis, unspecified site; N25.0 Renal osteodystrophy; G62.9 Polyneuropathy, unspecified; W19.XXXA Unspecified fall, initial encounter; R29.708 NIHSS score 8; Z99.2 Dependence on renal dialysis; Z79.82 Long term (current) use of aspirin; Z87.891 Personal history of nicotine dependence; Z98.42 Cataract extraction status, left eye; Z98.41 Cataract extraction status, right eye; Z90.710 Acquired absence of both cervix and uterus
CPT/HCPCS: 36415; 70450; 71045; 80053; 80061; 80069; 82948; 83036; 83735; 83883; 84100; 84439; 84443; 84480; 84484; 85025; 85055; 85610; 85730; 86334; 86706; 87340; 87502; 93005; 93306; 93880; 96374; 96375; 97116; 97161; 97165; 97530; 97535; 99285; A9270; C9803; G0257; G0378; J0131; J7030; Q5105; U0003; U0005

== ENCOUNTER 2022-03-01 11:20 | Emergency (ER) | payer MEDICARE, OTHER, SELFPAY ==
--- NOTE | ~2022-03-01 | XR_ITS ---
XR knee LT 3V DATE: 03/01/2022 14:04 INDICATION: Fall. Left knee pain TECHNIQUE: 3 views including cross table lateral COMPARISON: None FINDINGS: No fracture or dislocation or joint effusion. No periosteal reaction or bone destruction. Joint spaces are relatively preserved. No radiopaque intra-articular loose body or chondrocalcinosis. Osteopenia. Arterial calcification. IMPRESSION: Osteopenia; no fracture or dislocation or joint effusion Reviewed, dictated and finalized at location A.
--- NOTE | ~2022-03-01 | CT_ITS ---
EXAMINATION: CT brain wo con DATE: 03/01/2022 13:53 INDICATION: Falls. Cerebrovascular accident. TECHNIQUE: Computed tomography (CT) of the head was performed without intravenous contrast. The mA wa s adjusted according to patient size. Iterative reconstruction technique was employed. The dose-lengt h product was 605.33 mGy-cm. COMPARISON: Head CT 01/04/2022 FINDINGS: There are scattered areas of low attenuation in the cerebral white matter. There is an old infarct involving right temporal parietal region region. There is no intracranial hemorrhage, acute i nfarction, or abnormal intracranial mass lesion. The ventricles are normal in size. The paranasal sin uses are clear. The mastoid air cells are normal. IMPRESSION: 1. Old infarct in right temporal parietal region. 2. Moderate nonspecific cerebral white matter disease, which likely represents chronic small vessel i schemic disease. Reviewed, dictated and finalized at location A. IMPRESSION: 1. Old infarct in right temporal parietal region. 2. Moderate nonspecific cerebral white matter disease, which likely represents chronic small vessel ischemic disease.
--- NOTE | ~2022-03-01 | XR_ITS ---
XR knee RT 3V DATE: 03/01/2022 14:04 INDICATION: Fall. Right knee injury, pain TECHNIQUE: 3 views including crosstable lateral COMPARISON: None FINDINGS: No fracture or dislocation or joint effusion. No periosteal reaction or bone destruction. J oint spaces are relatively preserved. There is osteopenia. Femoral and popliteal and trifurcation artery calcifications. IMPRESSION: No fracture or dislocation or joint effusion Osteopenia Reviewed, dictated and finalized at location A.
--- NOTE | ~2022-03-01 | XR_ITS ---
EXAMINATION: XR shoulder LT min 2V DATE: 03/01/2022 14:04 INDICATION: Left shoulder pain post fall TECHNIQUE: AP internally and externally rotated, AP oblique externally rotated and transscapular Y vi ews of the left shoulder were obtained. COMPARISON: None FINDINGS: Normal alignment. No fracture.Severe osteoarthritis at the left glenohumeral joint with severe joint space narrowing and extensive subarticular cystic change at both the left humeral head and glenoid. Mild acromioclavicular osteoarthritis. Atherosclerotic calcification is at the aorta and great vessel s arising from the arch, the bilateral carotid bulbs and along the left axillary artery. Surgical cli ps at the medial aspect of the proximal left upper arm. IMPRESSION: Severe left glenohumeral osteoarthritis. No acute osseous abnormality. Reviewed, dictated and finalized at location B.
[2022-03-01 11:41] VITALS: BP 147/70; PULSE 94; RESP 16; TEMP 36.3; O2SAT 95
--- NOTE | 2022-03-01 13:22 | ECG_ITS ---
Measurements Intervals [place] Rate: 87 P: 38 FL: 169 QRS: -24 QRSD: 97 T: -3 QT: 394 QTc: 476 Interpretive Statements SINUS RHYTHM LEFT VENTRICULAR HYPERTROPHY CANNOT RULE OUT SEPTAL INFARCT, AGE INDETERMINATE BORDERLINE T WAVE ABNORMALITY- ANTEROLAT/INF LEADS ABNORMAL ECG COMPARED TO ECG 01/04/2022 12:20:56 NO SIGNIFICANT CHANGES Electronically Signed On 03-01-2022 14:06:13 CDT by Devang Contreras D.O.
--- NOTE | 2022-03-01 13:24 | ED.FALL ---
HPI - Fall General Chief Complaint: Fall Stated Complaint: fall x 5 Time Seen by Provider: 03/01/22 12:43 History of Present Illness HPI Narrative: This is a 72-year-old female with past medical history of end-stage renal disease (TTS), hypertension and early onset of dementia, who presents the emergency department with multiple falls. Patient's daughter states the patient has fallen 4 times in the past 2 weeks. Patient states she loses balance with each fall but denies vertigo, chest pain, shortness of breath, head trauma or loss of consciousness. Each fall has been halted either by family members present or by the patient catching herself on surround furniture or reyna. Patient's daughter states there is no preceding symptoms and falls occur throughout the day. Patient lives with her daughter, son-in-law and 2 other adults. She complains of mild bilateral knee and left shoulder pain without radiation. Related Data Home Medications Medication Instructions Recorded Confirmed pantoprazole 40 mg tablet,delayed 40 mg PO HS 12/13/20 01/04/22 release simvastatin 20 mg tablet 20 mg PO HS 12/13/20 01/04/22 allopurinol 100 mg tablet 100 mg PO DAILY 12/21/20 01/04/22 acetaminophen 500 mg tablet 500 mg PO Q6H PRN Pain (Scale 01/11/21 01/04/22 Score 1-3) cyclobenzaprine 10 mg tablet 10 mg PO TID 01/11/21 01/04/22 furosemide 20 mg tablet 20 mg PO BID 01/11/21 01/04/22 hydralazine 50 mg tablet 50 mg PO TID 01/11/21 01/04/22 isosorbide mononitrate 30 mg 30 mg PO QAM 01/11/21 01/04/22 tablet,extended release 24 hr carvedilol 25 mg tablet 12.5 mg PO Q12H 12/10/21 01/04/22 albuterol sulfate 90 mcg/actuation 1 puff inhalation Q4H PRN 01/04/22 01/04/22 aerosol inhaler Shortness Of Breath fluticasone propionate 50 2 spray intranasal DAILY PRN Dry 01/04/22 01/04/22 mcg/actuation nasal Nasal Passages spray,suspension hydrocodone 5 mg-acetaminophen 325 1 tablet PO Q6H PRN Pain (Scale 01/04/22 01/04/22 mg tablet Score 4-6) sevelamer carbonate 800 mg tablet See Rx Instructions .Route .COMPLEX 01/04/22 01/04/22 Allergies Allergy/AdvReac Type Severity Reaction Status Date / Time iohexol AdvReac AVOIDS Verified 12/10/21 15:18 [From contrast - CT, X-RAY] Sulfa (Sulfonamide AdvReac Nausea and Verified 12/10/21 15:18 Antibiotics) Vomiting Review of Systems Review of Systems: CONSTITUTIONAL: Denies fever, chills, or sweats. EYES: Denies visual changes, redness, or discharge. ENT: Denies rhinorrhea, congestion, sore throat, or otalgia. CARDIOVASCULAR: Denies chest pain, palpitations, or edema. RESPIRATORY: Denies cough or dyspnea. GASTROINTESTINAL: Denies abdominal pain, nausea, vomiting, or diarrhea. GENITOURINARY: Denies dysuria or hematuria. SKIN: Denies rash or itching. MUSCULOSKELETAL: Bilateral knee and left shoulder pain; Denies back pain, joint pain, or myalgia. NEUROLOGIC: Denies headache, numbness, dizziness, or weakness. PSYCHIATRIC: Denies anxiety or depression. [facility] Past Medical History Medical History Anemia in chronic kidney disease Arthritis Cerebrovascular accident Residual memory loss and left-sided weakness. Chronic obstructive pulmonary disease Chronic pain syndrome Pain pump in situ. End-stage renal disease on hemodialysis Hyperlipidemia Hypertension Obstructive sleep apnea Intolerant to CPAP. Renal osteodystrophy Surgical History Surgical History History of benign breast biopsy History of bilateral cataract extraction History of section History of hysterectomy Status post creation of arteriovenous fistula Status post right foot surgery Family History Family History Other Diabetes mellitus Heart disease Hypertension Social History Social History Social
--- NOTE | 2022-03-01 13:48 | PC.NURSE ---
Patient is a dialysis patient and reports that she produces very small amounts of urine in total per day. Will attempt to get UA again later.
[2022-03-01 14:32] LABS: Basophils Percent Auto 0.1 % (0.2-1.2); Eosinophils Percent Auto 0.1 % (0-4.4); Hematocrit 29.9 % (37.0-47.0); Hemoglobin 9.6 g/dL (12.0-15.0); Immature Granulocyte Absolute 0.02 K/mm3 (0.00-0.031); Immature Granulocyte Percent A 0.3 % (0-0.5); Lymphocytes Absolute Auto 1.06 K/mm3 (0.9-3.2); Lymphocytes Percent Auto 15.3 % (18.3-44.2); Mean Corpuscular HGB Conc 32.1 g/dl (32-36); Mean Corpuscular Hemoglobin 31.5 pg (26-34); Mean Platelet Volume 9.4 fl (7.4-10.4); Monocytes Absolute Auto 0.3 K/mm3 (0.1-0.6); Monocytes Percent Auto 4.2 % (2.6-8.5); Neutrophils Absolute Auto 5.5 K/mm3 (1.3-6.7); Platelet Count Result 151 k/mm3 (150-375); Red Blood Count 3.05 M/mm3 (4.2-5.4); Red Cell Distribution Width 14.6 % (11.5-14.5); White Blood Count 6.9 K/mm3 (4.5-10.0)
[2022-03-01 14:38] LABS: Alanine Aminotransferase 14 U/L (6-35); Albumin Level 3.9 g/dL (3.5-5.1); Alkaline Phosphatase 140 U/L (38-126); Anion Gap 11 mmol/L (8-16); Aspartate Amino Transferase 25 U/L (14-36); Bilirubin,Total 0.4 mg/dL (0.2-1.3); Blood Urea Nitrogen 44 mg/dL (7-17); Calcium 8.8 mg/dL (8.4-10.2); Carbon Dioxide 36 mmol/L (22-30); Chloride 91 mmol/L (98-107); Estimated Glomerular Filt Rate 8; Glucose 105 mg/dL (65-110); Potassium 3.9 mmol/L (3.4-5.0); Sodium 138 mmol/L (137-145)
[2022-03-01 15:00] VITALS: BP 120/91; PULSE 92; RESP 20; O2SAT 100
== END 2022-03-01 15:15 | disposition home or self-care (01) ==
PROVIDERS: Emergency Provider Preventive Medicine Aerospace Medicine; PCP Internal Medicine Infectious Disease
DX: M25.562 Pain in left knee (principal); M25.561 Pain in right knee; M25.512 Pain in left shoulder; R29.6 Repeated falls; I12.0 Hypertensive chronic kidney disease with stage 5 chronic kidney disease or end stage renal disease; N18.6 End stage renal disease; Z99.2 Dependence on renal dialysis; D63.1 Anemia in chronic kidney disease; I69.911 Memory deficit following unspecified cerebrovascular disease; I69.954 Hemiplegia and hemiparesis following unspecified cerebrovascular disease affecting left non-dominant side; E78.5 Hyperlipidemia, unspecified; G47.33 Obstructive sleep apnea (adult) (pediatric); N25.0 Renal osteodystrophy; M19.012 Primary osteoarthritis, left shoulder; Z98.42 Cataract extraction status, left eye; Z98.41 Cataract extraction status, right eye; Z90.710 Acquired absence of both cervix and uterus; Z87.891 Personal history of nicotine dependence; I51.7 Cardiomegaly; R94.31 Abnormal electrocardiogram [ECG] [EKG]; M85.88 Other specified disorders of bone density and structure, other site; R90.82 White matter disease, unspecified
CPT/HCPCS: 36415; 70450; 73030; 73562; 80053; 85025; 93005; 99284

== ENCOUNTER 2022-07-12 12:07 | Emergency (ER) | payer MEDICARE, OTHER, SELFPAY ==
--- NOTE | ~2022-07-12 | XR_ITS ---
EXAMINATION: XR lumbar spine 2-3V DATE: 07/12/2022 13:44 INDICATION: Low back pain. Fall. TECHNIQUE: 3 views of lumbar spine were obtained. COMPARISON: None. FINDINGS: There is 3 degrees levocurvature of lumbar spine. There is 10 mm anterolisthesis of L4 on L 5. There is mild anterior wedging of T9 vertebral body. There is mild anterior wedging of T12 vertebr al body, likely chronic. There is mild chronic anterior wedging of L5 vertebral body. There is severe ly decreased disc height at L4-L5 and L5-S1 with endplate remodeling. There is severe facet joint ost eoarthritis in lower lumbar spine. IMPRESSION: 1. Severe lower lumbar spondylosis. 2. Age-indeterminate compression fracture of T9. Reviewed, dictated and finalized at location A.
[2022-07-12 12:14] VITALS: BP 143/66; PULSE 88; RESP 18; TEMP 37.4; O2SAT 99
[2022-07-12 13:22] VITALS: BP 144/51; PULSE 85; RESP 18; O2SAT 100
--- NOTE | 2022-07-12 13:29 | ED.BACK ---
HPI - Back Pain/Injury General Chief Complaint: Back Pain/Injury Stated Complaint: back pain Time Seen by Provider: 07/12/22 12:44 History of Present Illness HPI Narrative: Patient is a 72-year-old female who presents ER with low back pain. She was attempting to walk 3 weeks ago and fell backwards hitting a door jam. She struck with her back but not her head. Did not lose consciousness. No numbness or tingling to her legs. Patient has difficulty ambulating at baseline because she uses wheelchair and also has a boot on her left foot. Patient started concerned that the mom may have had some slurred speech 2 days ago but patient is not concerned and states that she was just waking up from a nap. She has no slurred speech or weakness in arm or leg at this time. Her main concern is just the achiness that continues in her low back. She has not taken any pain medication. She also notes that she has a new sore to the inner part of her right upper buttock. No weeping or discharge. Related Data Home Medications Medication Instructions Recorded Confirmed pantoprazole 40 mg tablet,delayed 40 mg PO HS 12/13/20 01/04/22 release simvastatin 20 mg tablet 20 mg PO HS 12/13/20 01/04/22 allopurinol 100 mg tablet 100 mg PO DAILY 12/21/20 01/04/22 acetaminophen 500 mg tablet 500 mg PO Q6H PRN Pain (Scale 01/11/21 01/04/22 Score 1-3) cyclobenzaprine 10 mg tablet 10 mg PO TID 01/11/21 01/04/22 furosemide 20 mg tablet 20 mg PO BID 01/11/21 01/04/22 hydralazine 50 mg tablet 50 mg PO TID 01/11/21 01/04/22 isosorbide mononitrate 30 mg 30 mg PO QAM 01/11/21 01/04/22 tablet,extended release 24 hr carvedilol 25 mg tablet 12.5 mg PO Q12H 12/10/21 01/04/22 albuterol sulfate 90 mcg/actuation 1 puff inhalation Q4H PRN 01/04/22 01/04/22 aerosol inhaler Shortness Of Breath fluticasone propionate 50 2 spray intranasal DAILY PRN Dry 01/04/22 01/04/22 mcg/actuation nasal Nasal Passages spray,suspension hydrocodone 5 mg-acetaminophen 325 1 tablet PO Q6H PRN Pain (Scale 01/04/22 01/04/22 mg tablet Score 4-6) sevelamer carbonate 800 mg tablet See Rx Instructions .Route .COMPLEX 01/04/22 01/04/22 Allergies Allergy/AdvReac Type Severity Reaction Status Date / Time iohexol AdvReac AVOIDS Verified 12/10/21 15:18 [From contrast - CT, X-RAY] Sulfa (Sulfonamide AdvReac Nausea and Verified 12/10/21 15:18 Antibiotics) Vomiting Review of Systems Review of Systems: All systems reviewed & are unremarkable except as noted in HPI and below Constitutional: Constitutional: Denies chills, Denies fatigue and Denies fever(s) Cardiovascular: Cardiovascular: Denies chest pain, Denies rapid heart rate and Denies radiating jaw, neck or arm pain Respiratory: Respiratory: Denies cough, Denies dyspnea and Denies wheezing Musculoskeletal: Musculoskeletal: Reports back pain, Denies arthralgias and Denies joint swelling Neurologic: Denies syncope, Denies focal weakness and Denies numbness PMFSH Past Medical History Medical History Anemia in chronic kidney disease Arthritis Cerebrovascular accident Residual memory loss and left-sided weakness. Chronic obstructive pulmonary disease Chronic pain syndrome Pain pump in situ. End-stage renal disease on hemodialysis Hyperlipidemia Hypertension Obstructive sleep apnea Intolerant to CPAP. Renal osteodystrophy Surgical History Surgical History History of benign breast biopsy History of bilateral cataract extraction History of section History of hysterectomy Status post creation of arteriovenous fistula Status post right foot surgery Family History Family History Other Diabetes mellitus Heart disease Hypertension Social History Social History Social History:
[2022-07-12] MEDS: traMADol HCL (*CRX) 50 MG TABLET PO (15:16)
== END 2022-07-12 15:31 | disposition home or self-care (01) ==
PROVIDERS: Emergency Provider Emergency Medicine; PCP Internal Medicine Infectious Disease
DX: S39.92XA Unspecified injury of lower back, initial encounter (principal); I12.0 Hypertensive chronic kidney disease with stage 5 chronic kidney disease or end stage renal disease; N18.6 End stage renal disease; D63.1 Anemia in chronic kidney disease; E78.5 Hyperlipidemia, unspecified; G47.33 Obstructive sleep apnea (adult) (pediatric); N25.0 Renal osteodystrophy; Z99.2 Dependence on renal dialysis; Z98.42 Cataract extraction status, left eye; Z98.41 Cataract extraction status, right eye; Z90.710 Acquired absence of both cervix and uterus; Z87.891 Personal history of nicotine dependence; W22.09XA Striking against other stationary object, initial encounter
CPT/HCPCS: 72100; 99283; A9270

== ENCOUNTER 2022-07-15 11:47 | Outpatient (CLI) | payer MEDICARE, OTHER, SELFPAY ==
[2022-07-15 13:04] LABS: Calcium 9.2 mg/dL (8.4-10.2); Phosphorus 3.9 mg/dL (2.5-4.5)
[2022-07-15 13:17] LABS: Parathyroid Intact 341.7 pg/mL (7.5-53.5)
[2022-07-15 13:23] LABS: Vitamin D 25 Hydroxy 20.3 ng/mL
[2022-07-15 13:36] LABS: Cortisol Random 6.32 ug/dL
== END 2022-07-15 11:48 | disposition home or self-care (01) ==
PROVIDERS: PCP Internal Medicine Infectious Disease; Visit Provider Internal Medicine Endocrinology, Diabetes & Metabolism
DX: M81.0 Age-related osteoporosis without current pathological fracture (principal)
CPT/HCPCS: 36415; 80299; 82306; 82310; 82533; 83970; 84100; 84439; 84443

== ENCOUNTER 2022-07-20 22:15 | Observation (INO) | payer MEDICARE, OTHER, SELFPAY ==
--- NOTE | ~2022-07-20 | CT_ITS ---
EXAMINATION: CT facial & cervical spine wo DATE: 07/21/2022 01:28 INDICATION: Facial trauma and neck pain TECHNIQUE: Computed tomography (CT) of the maxillofacial region and cervical spine was performed with out intravenous contrast. The dose-length product (DLP) was 283.42 mGy-cm. Automated exposure control and iterative reconstruction technique were employed. COMPARISON: None FINDINGS: MAXILLOFACIAL CT: There is a large right periorbital hematoma. The facial soft tissues are otherwise normal unremarkabl e. No facial fracture is identified. The paranasal sinuses are clear.There are degenerative changes a t the left temporomandibular joint. Multiple dental caries are noted. CERVICAL SPINE CT: There are 2 mm of retrolisthesis of C5 on C6. There is severe loss of intervertebral disc space heigh t at C5-6. There is mild widening of the C6-7 disc space. No fracture is identified. The odontoid pro cess is intact. The prevertebral soft tissues are normal. There is severe uncovertebral joint osteoar thritis at C5-6. There are airspace opacities of the visualized lung apices. IMPRESSION: 1. Large right periorbital hematoma without acute facial fracture. 2. Severe cervical spondylosis at C5-6. 3. Mild widening of the C6-7 disc space of unclear etiology or significance. 4. Airspace opacities of the visualized lung apices, possible multifocal pneumonia. Reviewed, dictated and finalized at location A. IMPRESSION: 1. Large right periorbital hematoma without acute facial fracture. 2. Severe cervical spondylosis at C5-6. 3. Mild widening of the C6-7 disc space of unclear etiology or significance. 4. Airspace opacities of the visualized lung apices, possible multifocal pneumo mariana.
--- NOTE | ~2022-07-20 | XR_ITS ---
EXAMINATION: XR chest 1V portable INDICATION: Weakness, fall TECHNIQUE: Portable AP chest at 0110 hours COMPARISON: 01/06/2022 FINDINGS: There are areas of chronic scarring versus atelectasis in the left midlung zone. No pleural effusion or pneumothorax. The lungs are free of acute opacities. Cardiomegaly is noted. Surgical cli ps are noted in the left axilla. There is advanced osteoarthritis of the shoulders. IMPRESSION: 1. No acute cardiopulmonary abnormality. Reviewed, dictated and finalized at location A.
--- NOTE | ~2022-07-20 | CT_ITS ---
EXAMINATION: CT brain wo con INDICATION: Head injury COMPARISON: 03/01/2022 TECHNIQUE: Standard unenhanced head CT. The dose-length product (DLP) was 605.33 mGy-cm. The mA was a djusted according to patient size. Iterative reconstruction technique was employed. FINDINGS: There is a right periorbital hematoma. There is no acute intraparenchymal hemorrhage. No ev idence of mass lesion. No evidence of acute infarction. There is an old left temporoparietal infarct. There is mild periventricular and subcortical hypodensity probably related to small vessel ischemic disease. There is mild prominence of the sulci and ventricles related to cerebral atrophy. Intracrani al calcified cerebral atherosclerosis is noted. There are no extra-axial collections. There is no mas s effect or midline shift. The orbits and soft tissues are unremarkable. The visualized sinuses and m astoid air cells are well aerated. IMPRESSION: 1. Right periorbital hematoma without acute intracranial abnormality. 2. Age related findings. Reviewed, dictated and finalized at location A.
[2022-07-20 22:22] VITALS: BP 146/72; PULSE 89; RESP 16; TEMP 37.3; O2SAT 96
[2022-07-21] VITALS (13 sets, daily range): BP systolic 131–170; BP diastolic 57–75; PULSE 78–91; RESP 13–18; TEMP 36.3–36.8; O2SAT 90–98
--- NOTE | 2022-07-21 00:59 | ECG_ITS ---
Measurements Intervals [place] Rate: 87 P: 60 WA: 195 QRS: -26 QRSD: 103 T: 13 QT: 373 QTc: 450 Interpretive Statements SINUS RHYTHM POSSIBLE LEFT ATRIAL ENLARGEMENT LEFT VENTRICULAR HYPERTROPHY WITH ST-T CHANGE ANTEROSEPTAL INFARCT, AGE INDETERMINATE BORDERLINE T WAVE ABNORMALITY- INFERIOR LEADS BASELINE ARTIFACT- I, II, AVR, AVL, V6 ABNORMAL ECG COMPARED TO ECG 03/01/2022 13:43:20 NO SIGNIFICANT CHANGES Electronically Signed On 07-21-2022 7:43:45 CDT by Devang Contreras D.O.
--- NOTE | 2022-07-21 01:11 | PC.NURSE ---
patient taken to imaging at this time.
--- NOTE | 2022-07-21 01:38 | PC.NURSE ---
Patient and her daughter state patient rarely makes urine, is a dialysis patient. ERP notified, orders to cancel UA.
[2022-07-21 01:42] LABS: Basophils Percent Auto 0.5 % (0.2-1.2); Eosinophils Absolute Auto 0.1 K/mm3 (0-0.3); Eosinophils Percent Auto 2.2 % (0-4.4); Hemoglobin 10.9 g/dL (12.0-15.0); Immature Granulocyte Absolute 0.02 K/mm3 (0.00-0.031); Immature Granulocyte Percent A 0.3 % (0-0.5); Lymphocytes Absolute Auto 1.53 K/mm3 (0.9-3.2); Lymphocytes Percent Auto 23.6 % (18.3-44.2); Mean Corpuscular HGB Conc 31.1 g/dl (32-36); Mean Corpuscular Hemoglobin 31.2 pg (26-34); Mean Corpuscular Volume 100.3 fl (80-100); Mean Platelet Volume 9.5 fl (7.4-10.4); Monocytes Absolute Auto 0.7 K/mm3 (0.1-0.6); Monocytes Percent Auto 10.7 % (2.6-8.5); Neutrophils Absolute Auto 4.1 K/mm3 (1.3-6.7); Neutrophils Percent Auto 62.7 % (45.5-73.1); Platelet Count Result 177 k/mm3 (150-375); Red Blood Count 3.49 M/mm3 (4.2-5.4); Red Cell Distribution Width 15.3 % (11.5-14.5); White Blood Count 6.5 K/mm3 (4.5-10.0)
[2022-07-21 02:26] LABS: Alanine Aminotransferase 13 U/L (6-35); Albumin Level 3.8 g/dL (3.5-5.1); Alkaline Phosphatase 100 U/L (38-126); Anion Gap 6 mmol/L (8-16); Aspartate Amino Transferase 27 U/L (14-36); Bilirubin,Total 0.5 mg/dL (0.2-1.3); Blood Urea Nitrogen 27 mg/dL (7-17); Calcium 9.4 mg/dL (8.4-10.2); Carbon Dioxide 38 mmol/L (22-30); Chloride 94 mmol/L (98-107); Creatine Kinase 39 U/L (30-135); Estimated Glomerular Filt Rate 13; Glucose 103 mg/dL (65-110); Potassium 2.9 mmol/L (3.4-5.0); Sodium 138 mmol/L (137-145)
[2022-07-21 02:54] LABS: Influenza A QL RT-PCR Negative (Negative); Influenza B QL RT-PCR Negative (Negative); SARS-CoV-2 RNA PCR Negative
--- NOTE | 2022-07-21 03:04 | ED.GENADULT ---
HPI - General Adult General Chief complaint: Fall Stated complaint: fall Time Seen by Provider: 07/21/22 00:51 History of Present Illness HPI narrative: Patient 72-year-old female who presents the emergency department with chief complaint of fall. Per the patient's family the patient has been falling frequently lately the patient is end-stage renal dialysis on Friday the patient has been not able to complete her full runs of dialysis due to getting weak during the procedure. Patient denies chest pain denies shortness of breath reports that she has pain in her right forehead and has swelling around her right orbit. Patient states that her vision is at her baseline Related Data Home Medications Medication Instructions Recorded Confirmed pantoprazole 40 mg tablet,delayed 40 mg PO HS 12/13/20 01/04/22 release simvastatin 20 mg tablet 20 mg PO HS 12/13/20 01/04/22 allopurinol 100 mg tablet 100 mg PO DAILY 12/21/20 01/04/22 acetaminophen 500 mg tablet 500 mg PO Q6H PRN Pain (Scale 01/11/21 01/04/22 Score 1-3) cyclobenzaprine 10 mg tablet 10 mg PO TID 01/11/21 01/04/22 furosemide 20 mg tablet 20 mg PO BID 01/11/21 01/04/22 hydralazine 50 mg tablet 50 mg PO TID 01/11/21 01/04/22 isosorbide mononitrate 30 mg 30 mg PO QAM 01/11/21 01/04/22 tablet,extended release 24 hr carvedilol 25 mg tablet 12.5 mg PO Q12H 12/10/21 01/04/22 albuterol sulfate 90 mcg/actuation 1 puff inhalation Q4H PRN 01/04/22 01/04/22 aerosol inhaler Shortness Of Breath fluticasone propionate 50 2 spray intranasal DAILY PRN Dry 01/04/22 01/04/22 mcg/actuation nasal Nasal Passages spray,suspension hydrocodone 5 mg-acetaminophen 325 1 tablet PO Q6H PRN Pain (Scale 01/04/22 01/04/22 mg tablet Score 4-6) sevelamer carbonate 800 mg tablet See Rx Instructions .Route .COMPLEX 01/04/22 01/04/22 Allergies Allergy/AdvReac Type Severity Reaction Status Date / Time iohexol AdvReac AVOIDS Verified 07/20/22 22:16 [From contrast - CT, X-RAY] Sulfa (Sulfonamide AdvReac Nausea and Verified 07/20/22 22:16 Antibiotics) Vomiting Review of Systems Review of Systems: A 10 system review of systems was completed on the patient and is negative except for what is stated in the HPI. Nursing and ancillary documentation was reviewed. [facility] Past Medical History Medical History Anemia in chronic kidney disease Arthritis Cerebrovascular accident Residual memory loss and left-sided weakness. Chronic obstructive pulmonary disease Chronic pain syndrome Pain pump in situ. End-stage renal disease on hemodialysis Hyperlipidemia Hypertension Obstructive sleep apnea Intolerant to CPAP. Renal osteodystrophy Surgical History Surgical History History of benign breast biopsy History of bilateral cataract extraction History of section History of hysterectomy Status post creation of arteriovenous fistula Status post right foot surgery Family History Family History Other Diabetes mellitus Heart disease Hypertension Social History Social History Social History: Surrogate medical decision maker: Eufemia Powell, daughter. Code status: Full code. Smoking packs per day: 2 Smoking cigarettes per day: 40.0 Years smoked: 42 Smoking pack-years: 84.00 Smoking status: Former smoker Alcohol intake: never Substance use: never Substance use type: does not use Living arrangements: with family Additional living arrangements comments: The patient lives in [place] with her daughter, son-in-law, and granddaughter. Spiritual care concerns: No Exam Narrative: GENERAL: Well-appearing, well-nourished, and in no acute distress. HEAD: Normocephalic, there is a contusi
[2022-07-21] MEDS: MORPHINE SULFATE (*CRX) 4 MG/ML INJ 2 MG IV PUSH (03:38)
[2022-07-21] MEDS: KCL 20 MEQ/SW 100 ML 100 ML 50 MEQ IVPB (03:42)
--- NOTE | 2022-07-21 03:50 | PC.NURSE ---
This nurse called patients daughter upon patient request to inform her of patients admission and her PT and OT eval. Also informed her of patients lab results and her orders. Eufemia verbalized understanding.
--- NOTE | 2022-07-21 04:19 | PM.IMHP ---
H&P: HPI History of Present Illness Date/Time: 07/21/22 04:19 Chief Complaint: FALL Narrative: This is a 72-year-old female with past medical history significant for end-stage renal disease on hemodialysis Friday, , Friday. Patient presented to emergency room after she had a mechanical fall with closed head trauma to the face supraorbital area of the left side, patient denies any loss of consciousness or lightheadedness however can not give details about how she fell it was noted patient is wearing a brace on her left lower extremity due to ankle fracture 3 months ago. Patient has been in her usual state of health up until this point denies any nausea, vomiting, abdominal pain, chest pain, lightheadedness, fevers, chills, rigors, shortness of breath, cough, sputum production. Patient is been placed in observation for further evaluation management and treatment. Review of Systems Review of Systems: Fall Constitutional: Constitutional: Denies chills, Denies fatigue, Denies fever(s), Denies lethargy, Denies malaise, Denies night sweats, Denies poor appetite and Reports weakness Eyes: Eyes: Denies change in vision ENT: Denies dysphagia and Denies odynophagia Cardiovascular: Cardiovascular: Denies chest pain, Denies lightheadedness and Denies palpitations Respiratory: Respiratory: Denies chest congestion, Denies cough, Denies pain on inspiration and Denies dyspnea Gastrointestinal: Gastrointestinal: Denies abdominal pain, Denies dyspepsia, Denies heartburn, Denies diarrhea, Denies nausea and Denies vomiting Genitourinary: Genitourinary: Denies dysuria Musculoskeletal: Musculoskeletal: Denies back pain, Denies joint swelling, Reports muscle weakness and Reports other (Left lower extremity brace after ankle fracture 3 months ago) Integumentary/Breasts: Skin/Breast: Denies rash Neurologic: Denies focal weakness and Denies Sensory deficit (Neuro) Psychiatric: Psychiatric: Reports no additional psychiatric complaints and Reports as per HPI Endocrine: Endocrine: Denies cold intolerance, Denies flushing, Denies heat intolerance, Denies polyphagia, Denies polydipsia and Denies palpitations Hematologic/Lymphatic: Hematologic/Lymphatic: Reports no additional hematologic/lymphatic complaints and Reports as per HPI Allergic/Immunologic: Allergic/Immunologic: Reports no additional allergic/immunologic complaints and Reports as per HPI PMFSH Past Medical History Medical History Anemia in chronic kidney disease Arthritis Cerebrovascular accident Residual memory loss and left-sided weakness. Chronic obstructive pulmonary disease Chronic pain syndrome Pain pump in situ. End-stage renal disease on hemodialysis Hyperlipidemia Hypertension Obstructive sleep apnea Intolerant to CPAP. Renal osteodystrophy Surgical History Surgical History History of benign breast biopsy History of bilateral cataract extraction History of section History of hysterectomy Status post creation of arteriovenous fistula Status post right foot surgery Family History Family History Other Diabetes mellitus Heart disease Hypertension Social History Social History Social History: Surrogate medical decision maker: Eufemia Powell, daughter. Code status: Full code. Smoking packs per day: 2 Smoking cigarettes per day: 40.0 Years smoked: 42 Smoking pack-years: 84.00 Smoking status: Former smoker Alcohol intake: never Substance use: never Substance use type: does not use Living arrangements: with family Additional living arrangements comments: The patient lives in [place] with her daughter, son-in-law, and granddaughter. Spiritual care concerns: No Meds
--- NOTE | 2022-07-21 04:47 | PC.NURSE ---
This patient, Chito Paez, was admitted to Medical Room 247-. Patient/family oriented to hospital policies and general routines including ID bracelet, bed and alarms, visiting hours, pain management, procedures, bathroom and other care routines, personal items, smoking policy, room service/diet, and visiting hours. Information on how to activate the Rapid Response Team has been discussed. Patient/Family are encouraged to report perceived risks to care and to ask questions if they do not understand what they are told or what they should do.
[2022-07-21] MEDS: UMECLIDINIUM BROMIDE 62.5 MCG ELLIPTA 1 PUFF INHALATION (07:55)
--- NOTE | 2022-07-21 08:26 | PM.IMPN ---
Progress Note: A&P Assessment and Plan (1) Head injury: Code(s): S09.90XA - Unspecified injury of head, initial encounter Status: Acute Assessment and Plan: Appears to be a mechanical fall, appreciate PT/OT, CT head nonacute No signs of concussion or further injury at this time, monitor (2) Contusion of face: Code(s): S00.83XA - Contusion of other part of head, initial encounter Status: Acute Assessment and Plan: No fracture, stable (3) Ground-level fall: Code(s): W18.30XA - Fall on same level, unspecified, initial encounter Status: Acute Assessment and Plan: Suspect mechanical etiology, see above (4) Generalized weakness: Code(s): R53.1 - Weakness Status: Acute Assessment and Plan: Likely secondary to hypokalemia, replete and recheck Appreciate PT/OT (5) End stage renal disease on dialysis: Code(s): N18.6 - End stage renal disease; Z99.2 - Dependence on renal dialysis Status: Acute Assessment and Plan: Nephrology consult appreciated (6) Acute hypokalemia: Code(s): E87.6 - Hypokalemia Status: Acute Assessment and Plan: Cautiously replete and recheck due to dialysis, unsure of etiology at this time Plan DVT prophylaxis with SCDs GI prophylaxis not indicated Code status full code Subjective Date/time seen: 07/21/22 08:26 Interval history: 72-year-old female with end-stage renal disease on hemodialysis is presenting with head trauma after a mechanical fall. No overnight events noted. No chest pain or shortness of breath. No nausea, vomiting or diarrhea. No fevers or chills. Daughter is in the room and states the patient has had progressively more frequent falls over the last 2 years. Review of Systems Review of Systems: 12 point review of systems was assessed and was negative except as noted in the HPI Exam Narrative: General: No acute distress, alert and oriented per baseline HEENT: Swelling and ecchymotic lesions noted over right eye, some scattered abrasions CV: Regular rate and rhythm, S1, S2 Lungs: Clear to auscultation bilaterally, no rales or crackles noted, no wheezes, good air entry Abdomen: Soft, nontender, nondistended Extremities: Normal to inspection Skin: No rashes noted, no lesions or wounds seen Psych: Euthymic, normal affect Objective Data Vital Signs Vital Signs: Vital Signs - 24 hr 07/20/22 22:22 07/21/22 00:20 07/21/22 03:19 Temperature 99.2 F Pulse Rate 89 91 88 Respiratory Rate 16 17 14 Blood Pressure 146/72 H 170/75 H 143/62 H Pulse Oximetry 96 98 97 Oxygen Delivery Room Air 07/21/22 04:14 07/21/22 04:37 07/21/22 04:31 Temperature 98.0 F 97.7 F Pulse Rate 85 86 Respiratory Rate 13 18 Blood Pressure 152/70 H 131/59 L Pulse Oximetry 96 92 Oxygen Delivery Room Air 07/21/22 07:57 Temperature Pulse Rate Respiratory Rate Blood Pressure Pulse Oximetry 90 Oxygen Delivery Room Air Intake/Output Intake/Output: Intake & Output 07/18/22 07/19/22 07/20/22 07/21/22 23:59 23:59 23:59 23:59 Intake Total 100 Balance 100 Meds/Results Medications: Active Medications Generic Name Dose Route Start Last Admin Trade Name Freq PRN Reason Stop Dose Admin Acetaminophen 500 mg 07/21/22 06:09 Acetaminophen 500 Mg Tablet PO Q6H PRN Pain (Scale Score 1-3) Albuterol 2 puff 07/21/22 06:09 Albuterol Sulfate (*Sp) Aerosol 1 Puff INHALATION Q4H PRN Shortness Of Breath Allopurinol 100 mg 07/21/22 08:00 Allopurinol 100 Mg Tablet PO DAILY@0800 [facility] Amlodipine Besylate 5 mg 07/21/22 09:00 Amlodipine Besylate 5 Mg Tablet PO QAM [facility] Aspirin 324 mg 07/21/22 08:00 Aspirin 81 Mg Chewable Tablet PO DAILY@0800 [facility] Calcium Acetate 667 mg 07/21/22 08:00 Calcium Acetate 667 Mg Tablet PO BIDWM [facility] Carvedilol 12.5 mg 06/27
[2022-07-21] MEDS: ACETAMINOPHEN 500 MG TABLET PO ×2 (08:52→17:40)
[2022-07-21] MEDS: SEVELAMER CARBONATE 800 MG TABLET 1600 MG BY MOUTH ×3 (08:53→17:38)
[2022-07-21] MEDS: ASPIRIN 81 MG CHEWABLE TABLET 324 MG PO (08:54)
[2022-07-21] MEDS: hydrALAZINE HCL 50 MG TABLET PO ×3 (08:54→17:38)
[2022-07-21] MEDS: allopurinoL 100 MG TABLET PO (08:55)
[2022-07-21] MEDS: amLODIPine BESYLATE 5 MG TABLET PO (08:55)
[2022-07-21] MEDS: CYCLOBENZAPRINE HCL 10 MG TABLET PO ×3 (08:56→17:37)
[2022-07-21] MEDS: diphenhydrAMINE HCl CAP 25 MG CAPSULE PO (08:56)
[2022-07-21] MEDS: carvediloL 12.5 MG TABLET PO ×2 (08:56→20:50)
[2022-07-21] MEDS: FUROSEMIDE 20 MG TABLET PO ×2 (08:57→17:37)
[2022-07-21] MEDS: DONEPEZIL HCL 10 MG TABLET BY MOUTH (08:57)
[2022-07-21] MEDS: CALCIUM ACETATE 667 MG TABLET PO ×2 (08:57→17:36)
[2022-07-21] MEDS: FLUTICASONE PROPIONATE 0.05% NA SPR 16 GM BTL (*BKC) 2 SPRAY NASAL (08:58)
[2022-07-21] MEDS: ISOSORBIDE MONONITRATE 30 MG TAB.ER.24H PO (08:58)
--- NOTE | 2022-07-21 12:20 | PM.CNNEP ---
Assessment and Plan Assessment and plan (1) End stage renal disease: Code(s): N18.6 - End stage renal disease Status: Chronic Assessment and Plan: plan next HD treatment on Friday continue T/T/S dialysis schedule while hospitalized follow electrolytes, volume status, and clearance (2) Status post fall: Code(s): Z91.81 - History of falling Status: Acute Assessment and Plan: as evidence by history facial injury noted imaging studies with fracture or acute intracranial abnormalities PT/OT supportive therapy (3) Generalized weakness: Code(s): R53.1 - Weakness Status: Acute Assessment and Plan: presumable etiology leading to #2 PT/OT as tolerated (4) Acute hypokalemia: Code(s): E87.6 - Hypokalemia Status: Acute Assessment and Plan: suspect diminished oral intake likely worsened by dialysis treatments replace PRN liberalize diet follow repeat K+ levels (5) Hypertension: Code(s): I10 - Essential (primary) hypertension Status: Chronic Assessment and Plan: reasonable control at this time follow trend of hemodynamics (6) Anemia: Code(s): D64.9 - Anemia, unspecified Status: Chronic Assessment and Plan: due to ESRD Epogen with HD follow trend of H/H I will continue to follow the patient with you while she remains hospitalized and make further recommendations during her hospital course. Thank you for allowing me to participate in care of this patient. History of Present Illness Reason for Consult Consult date: 07/21/22 Reason for consult: end stage renal disease Chief Complaint Chief complaint: hypokalemia, frequent falls generalized weakness r History of Present Illness Narrative: The patient is a 72-year-old female with a past medical history as outlined below who presented to [facility] Emergency room after sustaining a fall. She apparently had a mechanical fall with associated head trauma localized to the left facial/supraorbital area. It is not entirely clear how the fall occurred but she denies any history of lightheadedness, dizziness, or loss of consciousness prior to or after the fall. She otherwise appears to have no other acute symptoms with regard to chest pain, shortness of breath, nausea, vomiting, abdominal pain, fevers, chills, or diarrhea. Her family reports that she has been having increasing numbers of falls in general as well. Given these constellation of symptoms, she presented to the ER for further assessment Workup and evaluation emergency room demonstrated the patient to be hemodynamically stable and in otherwise no acute distress. Localizde trauma to her right face and supraorbital area was noted. Routine blood test demonstrated labs consistent with her known history of end-stage renal disease although she was noted to be hypokalemic. Imaging studies including a head CT did not demonstrate any acute intracranial process or any other facial bone fractures. Given the history of recurrent falls in association with weakness, the patient was admitted to the hospital for further evaluation and therapy. Renal consultation was requested due to her end-stage renal disease. The patient normally dialyzes on a Friday, , Friday schedule at [facility] under the care of Dr. Parviz Holt. Her last dialysis treatment was yester, Friday. The notes from the ER indicate that she has been having trouble stain for the entire duration of her dialysis treatments but on further questioning by myself, she reports compliance with her dialysis treatments and her only real complaint is that she has issues with degenerative joint disease /arthritis which makes seen a chair during her dialysis treatments somewhat uncomfortable. Aside from her hypokalemia, she has no other critical electrolyte abnormalities and her volume status appears to
[2022-07-21] MEDS: HYDROcodone/acetaminophen (*CRX) 5-325 MG TABLET 1 TAB PO ×2 (15:37→21:37)
[2022-07-21] MEDS: SIMVASTATIN 20 MG TABLET PO (20:50)
[2022-07-21] MEDS: PANTOPRAZOLE 40 MG TABLET PO (20:50)
[2022-07-22] VITALS (13 sets, daily range): BP systolic 127–159; BP diastolic 51–70; PULSE 69–87; RESP 16–18; TEMP 36.2–37; O2SAT 94–99
[2022-07-22 06:08] LABS: Basophils Percent Auto 0.4 % (0.2-1.2); Eosinophils Absolute Auto 0.2 K/mm3 (0-0.3); Eosinophils Percent Auto 3.3 % (0-4.4); Hematocrit 29.9 % (37.0-47.0); Hemoglobin 9.1 g/dL (12.0-15.0); Immature Granulocyte Absolute 0.02 K/mm3 (0.00-0.031); Immature Granulocyte Percent A 0.4 % (0-0.5); Lymphocytes Absolute Auto 1.26 K/mm3 (0.9-3.2); Lymphocytes Percent Auto 24.2 % (18.3-44.2); Mean Corpuscular HGB Conc 30.4 g/dl (32-36); Mean Corpuscular Hemoglobin 30.8 pg (26-34); Mean Corpuscular Volume 101.4 fl (80-100); Monocytes Absolute Auto 0.5 K/mm3 (0.1-0.6); Neutrophils Absolute Auto 3.2 K/mm3 (1.3-6.7); Neutrophils Percent Auto 61.7 % (45.5-73.1); Platelet Count Result 156 k/mm3 (150-375); Red Blood Count 2.95 M/mm3 (4.2-5.4); White Blood Count 5.2 K/mm3 (4.5-10.0)
[2022-07-22 06:29] LABS: Alanine Aminotransferase 10 U/L (6-35); Albumin Level 2.9 g/dL (3.5-5.1); Alkaline Phosphatase 73 U/L (38-126); Anion Gap 5 mmol/L (8-16); Aspartate Amino Transferase 20 U/L (14-36); Bilirubin,Total 0.4 mg/dL (0.2-1.3); Blood Urea Nitrogen 33 mg/dL (7-17); Calcium 9.3 mg/dL (8.4-10.2); Carbon Dioxide 34 mmol/L (22-30); Chloride 96 mmol/L (98-107); Estimated Glomerular Filt Rate 8; Glucose 80 mg/dL (65-110); Potassium 3.6 mmol/L (3.4-5.0); Sodium 135 mmol/L (137-145)
[2022-07-22] MEDS: LINACLOTIDE 145 MCG CAPSULE PO (07:38)
[2022-07-22] MEDS: CALCIUM ACETATE 667 MG TABLET PO ×2 (07:38→17:23)
[2022-07-22] MEDS: hydrALAZINE HCL 50 MG TABLET PO ×3 (07:38→17:23)
[2022-07-22] MEDS: allopurinoL 100 MG TABLET PO (07:38)
[2022-07-22] MEDS: ASPIRIN 81 MG CHEWABLE TABLET 324 MG PO (07:38)
[2022-07-22] MEDS: SEVELAMER CARBONATE 800 MG TABLET 1600 MG BY MOUTH ×3 (07:38→17:23)
[2022-07-22] MEDS: UMECLIDINIUM BROMIDE 62.5 MCG ELLIPTA 1 PUFF INHALATION (08:03)
[2022-07-22 08:30] LABS: Hepatitis B Surface Antigen Negative (Negative)
[2022-07-22] MEDS: carvediloL 12.5 MG TABLET PO ×2 (08:50→20:10)
[2022-07-22] MEDS: amLODIPine BESYLATE 5 MG TABLET PO (08:51)
[2022-07-22] MEDS: CYCLOBENZAPRINE HCL 10 MG TABLET PO ×2 (08:51→12:17)
[2022-07-22] MEDS: FUROSEMIDE 20 MG TABLET PO (08:51)
[2022-07-22] MEDS: DONEPEZIL HCL 10 MG TABLET BY MOUTH (08:51)
[2022-07-22] MEDS: diphenhydrAMINE HCl CAP 25 MG CAPSULE PO (08:52)
[2022-07-22] MEDS: ISOSORBIDE MONONITRATE 30 MG TAB.ER.24H PO (08:52)
[2022-07-22] MEDS: HYDROcodone/acetaminophen (*CRX) 5-325 MG TABLET 1 TAB PO ×3 (08:56→21:59)
--- NOTE | 2022-07-22 09:52 | PM.IMPN ---
Progress Note: A&P Assessment and Plan (1) Head injury: Code(s): S09.90XA - Unspecified injury of head, initial encounter Status: Acute Assessment and Plan: Appears to be a mechanical fall, appreciate PT/OT, CT head nonacute No signs of concussion or further injury at this time, monitor (2) Contusion of face: Code(s): S00.83XA - Contusion of other part of head, initial encounter Status: Acute Assessment and Plan: No fracture, stable (3) Ground-level fall: Code(s): W18.30XA - Fall on same level, unspecified, initial encounter Status: Acute Assessment and Plan: Suspect mechanical etiology, see above (4) Generalized weakness: Code(s): R53.1 - Weakness Status: Acute Assessment and Plan: Appreciate PT/OT (5) End stage renal disease on dialysis: Code(s): N18.6 - End stage renal disease; Z99.2 - Dependence on renal dialysis Status: Acute Assessment and Plan: Nephrology consult appreciated (6) Acute hypokalemia: Code(s): E87.6 - Hypokalemia Status: Acute Assessment and Plan: Resolved Plan DVT prophylaxis with SCDs GI prophylaxis not indicated Code status full code Subjective Date/time seen: 07/22/22 09:52 Interval history: 72-year-old female who lives at home with her daughter is presenting with end-stage renal disease on hemodialysis presenting with head trauma after a mechanical fall, long history of frequent falls, need for home health care versus placement at discharge. No overnight events noted. No chest pain or shortness of breath. No nausea, vomiting or diarrhea. No fevers or chills. Review of Systems Review of Systems: 12 point review of systems was assessed and was negative except as noted in the HPI Exam Narrative: General: No acute distress, alert and oriented per baseline HEENT: Minimal edema over right eye, abrasion healing CV: Regular rate and rhythm, S1, S2 Lungs: Clear to auscultation bilaterally, no rales or crackles noted, no wheezes, good air entry Abdomen: Soft, nontender, nondistended Extremities: Normal to inspection Skin: No rashes noted, no lesions or wounds seen Psych: Euthymic, normal affect Objective Data Vital Signs Vital Signs: Vital Signs - 24 hr 07/21/22 14:00 07/21/22 12:00 07/21/22 19:50 Temperature 98.2 F 97.3 F L Pulse Rate 80 80 88 Respiratory Rate 18 18 Blood Pressure 137/57 L 149/65 H Pulse Oximetry 98 95 Oxygen Delivery 07/21/22 16:00 07/21/22 20:50 07/22/22 03:51 Temperature 97.1 F L Pulse Rate 79 78 81 Respiratory Rate 18 Blood Pressure 135/55 L Pulse Oximetry 94 Oxygen Delivery 07/21/22 20:00 07/21/22 20:00 07/22/22 00:00 Temperature Pulse Rate 82 84 Respiratory Rate Blood Pressure Pulse Oximetry Oxygen Delivery Room Air 07/22/22 04:00 07/22/22 07:42 07/22/22 08:05 Temperature Pulse Rate 82 84 Respiratory Rate Blood Pressure 159/70 H Pulse Oximetry 95 Oxygen Delivery Room Air 07/22/22 08:50 Temperature Pulse Rate 69 Respiratory Rate Blood Pressure Pulse Oximetry Oxygen Delivery Intake/Output Intake/Output: Intake & Output 07/19/22 07/20/22 07/21/22 07/22/22 23:59 23:59 23:59 23:59 Intake Total 680 120 Balance 680 120 Meds/Results Medications: Active Medications Generic Name Dose Route Start Last Admin Trade Name Freq PRN Reason Stop Dose Admin Acetaminophen 500 mg 07/21/22 06:09 07/21/22 17:40 Acetaminophen 500 Mg Tablet PO 500 mg Q6H PRN Administration Pain (Scale Score 1-3) Hydrocodone Bitart/Acetaminophen 1 tab 07/21/22 15:26 07/22/22 08:56 Hydrocodone/Acetaminophen (*Crx) 5-325 Mg Tablet PO 1 tab Q4H PRN Administration Pain Rated 4-6 Albuterol 2 puff 07/21/22 06:09 Albuterol Sulfate (*Sp) Aerosol 1 Puff INHALATION Q4H PRN Shortness Of Breat
[2022-07-22 09:55] LABS: Hepatitis B Surface Anti Res Indeterminate
--- NOTE | 2022-07-22 12:42 | PM.PNNEP ---
Progress Note: A&P Assessment and Plan (1) End stage renal disease on dialysis: Code(s): N18.6 - End stage renal disease; Z99.2 - Dependence on renal dialysis Status: Acute Assessment and Plan: end-stage renal disease hypertensive renal disease with end-stage nephrosclerosis anemia of chronic kidney disease secondary hyperparathyroidism fall and sustained right periorbital hematoma hypokalemia, which seems post dialysis plan: - dialysis tomorrow -no heparin - may need ophthalmological evaluation - follow-up of ESRD and related needs Subjective Date/time seen: 07/22/22 12:42 ESRD f/u Patient admitted with a fall and trauma with a bruised right eye and hemorrhagic conjunctiva, diminished vision and also bumped from the forehead on the right side. Feels okay currently . Denies shortness of breath. No nausea or vomiting. Exam Narrative: Vital signs is noted, bruised right eye conjunctiva hemorrhage on the right side, small bump right sided forehead, skin turgor normal, no pallor, no icterus, moist oral mucosa, JVD negative, regular rate rhythm, no gallop, no rub, equal breath sounds, two views, soft nontender abdomen, edema negative, and left foot in a brace. Alert oriented x3, no tremors Objective Data Vital Signs Vital Signs: Vital Signs - 24 hr 07/21/22 14:00 07/21/22 19:50 07/21/22 16:00 Temperature 36.8 C 36.3 C L Pulse Rate 80 88 79 Respiratory Rate 18 18 Blood Pressure 137/57 L 149/65 H Pulse Oximetry 98 95 Oxygen Delivery 07/21/22 20:50 07/22/22 03:51 07/21/22 20:00 Temperature 36.2 C L Pulse Rate 78 81 Respiratory Rate 18 Blood Pressure 135/55 L Pulse Oximetry 94 Oxygen Delivery Room Air 07/21/22 20:00 07/22/22 00:00 07/22/22 04:00 Temperature Pulse Rate 82 84 82 Respiratory Rate Blood Pressure Pulse Oximetry Oxygen Delivery 07/22/22 07:42 07/22/22 08:05 07/22/22 08:50 Temperature Pulse Rate 84 69 Respiratory Rate Blood Pressure 159/70 H Pulse Oximetry 95 Oxygen Delivery Room Air Intake/Output Intake/Output: Intake & Output 07/19/22 07/20/22 07/21/22 03/27/23 23:59 23:59 23:59 23:59 Intake Total 680 240 Balance 680 240 Meds/Results Medications: Active Medications Generic Name Dose Route Start Last Admin Trade Name Freq PRN Reason Stop Dose Admin Acetaminophen 500 mg 07/21/22 06:09 07/21/22 17:40 Acetaminophen 500 Mg Tablet PO 500 mg Q6H PRN Administration Pain (Scale Score 1-3) Hydrocodone Bitart/Acetaminophen 1 tab 07/21/22 15:26 07/22/22 08:56 Hydrocodone/Acetaminophen (*Crx) 5-325 Mg Tablet PO 1 tab Q4H PRN Administration Pain Rated 4-6 Albuterol 2 puff 07/21/22 06:09 Albuterol Sulfate (*Sp) Aerosol 1 Puff INHALATION Q4H PRN Shortness Of Breath Allopurinol 100 mg 07/21/22 08:00 07/22/22 07:38 Allopurinol 100 Mg Tablet PO 100 mg DAILY@0800 [facility] Administration Amlodipine Besylate 5 mg 07/21/22 09:00 07/22/22 08:51 Amlodipine Besylate 5 Mg Tablet PO 5 mg QAM [facility] Administration Aspirin 324 mg 07/21/22 08:00 07/22/22 07:38 Aspirin 81 Mg Chewable Tablet PO 324 mg DAILY@0800 [facility] Administration Calcium Acetate 667 mg 07/21/22 08:00 07/22/22 07:38 Calcium Acetate 667 Mg Tablet PO 667 mg BIDWM [facility] Administration Carvedilol 12.5 mg 07/21/22 09:00 07/22/22 08:50 Carvedilol 12.5 Mg Tablet PO 12.5 mg Q12HR [facility] Administration Cyclobenzaprine HCl 10 mg 07/21/22 09:00 07/22/22 12:17 Cyclobenzaprine Hcl 10 Mg Tablet PO 10 mg TID [facility] Administration Diphenhydramine HCl 25 mg 07/21/22 09:00 07/22/22 08:52 Diphenhydramine Hcl Cap 25 Mg Capsule PO 25 mg DAILY [facility] Administration Donepezil HCl 10 mg 07/21/22 09:00 07/22/22 08:51 Donepezil Hcl 10 Mg Tablet BY MOUTH 10 mg DAILY [facility] Administration Fluticasone Propionate 2 spray 07/21/22 06:09 07/21/22 0
--- NOTE | 2022-07-22 16:35 | PCCCNOTE ---
On 07/22/22, the student, [Svitlana Arellano ], provided care and [facility]. I have reviewed the student's documentation and agree with the findings.
[2022-07-22] MEDS: CYCLOBENZAPRINE HCL 5 MG TABLET PO (17:27)
[2022-07-22] MEDS: PANTOPRAZOLE 40 MG TABLET PO (20:10)
[2022-07-22] MEDS: SIMVASTATIN 20 MG TABLET PO (20:10)
[2022-07-23] VITALS (25 sets, daily range): BP systolic 126–153; BP diastolic 55–81; PULSE 70–90; RESP 16–20; TEMP 36–36.8; O2SAT 95–99
[2022-07-23 06:00] LABS: Basophils Percent Auto 0.3 % (0.2-1.2); Eosinophils Absolute Auto 0.2 K/mm3 (0-0.3); Eosinophils Percent Auto 2.9 % (0-4.4); Hematocrit 29.7 % (37.0-47.0); Hemoglobin 9.2 g/dL (12.0-15.0); Immature Granulocyte Absolute 0.03 K/mm3 (0.00-0.031); Immature Granulocyte Percent A 0.5 % (0-0.5); Lymphocytes Absolute Auto 1.41 K/mm3 (0.9-3.2); Lymphocytes Percent Auto 24.4 % (18.3-44.2); Mean Corpuscular Hemoglobin 30.9 pg (26-34); Mean Corpuscular Volume 99.7 fl (80-100); Monocytes Absolute Auto 0.6 K/mm3 (0.1-0.6); Monocytes Percent Auto 10.4 % (2.6-8.5); Neutrophils Absolute Auto 3.6 K/mm3 (1.3-6.7); Neutrophils Percent Auto 61.5 % (45.5-73.1); Platelet Count Result 155 k/mm3 (150-375); Red Blood Count 2.98 M/mm3 (4.2-5.4); White Blood Count 5.8 K/mm3 (4.5-10.0)
[2022-07-23 06:15] LABS: Alanine Aminotransferase 10 U/L (6-35); Albumin Level 2.9 g/dL (3.5-5.1); Alkaline Phosphatase 72 U/L (38-126); Anion Gap 4 mmol/L (8-16); Aspartate Amino Transferase 19 U/L (14-36); Bilirubin,Total 0.5 mg/dL (0.2-1.3); Blood Urea Nitrogen 43 mg/dL (7-17); Calcium 9.4 mg/dL (8.4-10.2); Carbon Dioxide 35 mmol/L (22-30); Chloride 94 mmol/L (98-107); Estimated Glomerular Filt Rate 7; Glucose 74 mg/dL (65-110); Potassium 3.9 mmol/L (3.4-5.0); Sodium 133 mmol/L (137-145)
[2022-07-23] MEDS: UMECLIDINIUM BROMIDE 62.5 MCG ELLIPTA 1 PUFF INHALATION (07:05)
[2022-07-23] MEDS: allopurinoL 100 MG TABLET PO (08:48)
[2022-07-23] MEDS: ASPIRIN 81 MG CHEWABLE TABLET 324 MG PO (08:48)
--- NOTE | 2022-07-23 08:48 | PM.PNNEP ---
Progress Note: A&P Assessment and Plan (1) End stage renal disease: Code(s): N18.6 - End stage renal disease Status: Chronic Assessment and Plan: end-stage renal disease hypertensive renal disease anemia of chronic kidney disease secondary hyperparathyroidism hypokalemia fall with injury as described above plan: -dialysis today -disposition brothers -recommend ophthalmology evaluation even at least as an outpatient Subjective Date/time seen: 07/23/22 08:48 and stage renal disease follow-up Interval history: feels okay, no new complaints, swelling right eye Exam Narrative: well-developed well-nourished, comfortable at rest, vital signs as stated, skin turgor normal, no pallor, no icterus, JVD negative, regular rate rhythm, no gallop, equal breath sounds, no rales of these, soft nontender abdomen, no masses, no edema, alert oriented x3, no tremors, right scalp hematoma and bright. periorbital edema noted, subconjunctival area of bleed looks better Objective Data Vital Signs Vital Signs: Vital Signs - 24 hr 07/22/22 08:50 07/22/22 13:15 07/22/22 12:04 Temperature Pulse Rate 69 80 Respiratory Rate Blood Pressure Pulse Oximetry Oxygen Delivery Room Air 07/22/22 14:28 07/22/22 16:00 07/22/22 20:10 Temperature 36.7 C Pulse Rate 87 87 83 Respiratory Rate 16 Blood Pressure 127/64 Pulse Oximetry 99 Oxygen Delivery 07/22/22 20:00 07/22/22 20:00 07/22/22 22:00 Temperature 37.0 C Pulse Rate 81 81 Respiratory Rate 18 Blood Pressure 136/51 L Pulse Oximetry 97 Oxygen Delivery Room Air 07/23/22 06:00 07/23/22 00:00 07/23/22 04:00 Temperature 36.3 C L Pulse Rate 70 81 80 Respiratory Rate 18 Blood Pressure 138/62 Pulse Oximetry 99 Oxygen Delivery 07/23/22 07:05 07/23/22 07:05 Temperature Pulse Rate 74 74 Respiratory Rate 16 16 Blood Pressure Pulse Oximetry 98 Oxygen Delivery Room Air Intake/Output Intake/Output: Intake & Output 07/20/22 07/21/22 07/22/22 07/23/22 23:59 23:59 23:59 23:59 Intake Total 680 1160 Balance 680 1160 Meds/Results Medications: Active Medications Generic Name Dose Route Start Last Admin Trade Name Roberto PRN Reason Stop Dose Admin Acetaminophen 500 mg 07/21/22 06:09 07/21/22 17:40 Acetaminophen 500 Mg Tablet PO 500 mg Q6H PRN Administration Pain (Scale Score 1-3) Hydrocodone Bitart/Acetaminophen 1 tab 07/21/22 15:26 07/22/22 21:59 Hydrocodone/Acetaminophen (*Crx) 5-325 Mg Tablet PO 1 tab Q4H PRN Administration Pain Rated 4-6 Albuterol 2 puff 07/21/22 06:09 Albuterol Sulfate (*Sp) Aerosol 1 Puff INHALATION Q4H PRN Shortness Of Breath Allopurinol 100 mg 07/21/22 08:00 07/22/22 07:38 Allopurinol 100 Mg Tablet PO 100 mg DAILY@0800 [facility] Administration Amlodipine Besylate 5 mg 07/21/22 09:00 07/22/22 08:51 Amlodipine Besylate 5 Mg Tablet PO 5 mg QAM [facility] Administration Aspirin 324 mg 07/21/22 08:00 07/22/22 07:38 Aspirin 81 Mg Chewable Tablet PO 324 mg DAILY@0800 [facility] Administration Calcium Acetate 667 mg 07/21/22 08:00 07/22/22 17:23 Calcium Acetate 667 Mg Tablet PO 667 mg BIDWM [facility] Administration Carvedilol 12.5 mg 07/21/22 09:00 07/22/22 20:10 Carvedilol 12.5 Mg Tablet PO 12.5 mg Q12HR [facility] Administration Cyclobenzaprine HCl 5 mg 07/22/22 17:00 07/22/22 17:27 Cyclobenzaprine Hcl 5 Mg Tablet PO 5 mg TID [facility]LA[facility] Administration Donepezil HCl 10 mg 07/21/22 09:00 07/22/22 08:51 Donepezil Hcl 10 Mg Tablet BY MOUTH 10 mg DAILY [facility] Administration Fluticasone Propionate 2 spray 07/21/22 06:09 07/21/22 08:58 Fluticasone Propionate 0.05% Na Spr 16 Gm Btl (*Bkc) NASAL 2 spray DAILY PRN Administration Dry Nasal Passages Furosemide 40 mg 07/23/22 09:00 Furosemide 40 Mg Tablet PO DAILY [facility] Hydralazine HCl 50 mg
[2022-07-23] MEDS: FUROSEMIDE 40 MG TABLET PO (08:49)
[2022-07-23] MEDS: CALCIUM ACETATE 667 MG TABLET PO ×2 (08:49→17:31)
[2022-07-23] MEDS: DONEPEZIL HCL 10 MG TABLET BY MOUTH (08:49)
[2022-07-23] MEDS: SEVELAMER CARBONATE 800 MG TABLET 1600 MG BY MOUTH ×3 (08:49→17:31)
[2022-07-23] MEDS: CYCLOBENZAPRINE HCL 5 MG TABLET PO ×3 (08:54→17:32)
--- NOTE | 2022-07-23 09:48 | PCPTNOTE ---
Pt off the unit for dialysis. Will attempt PT evaluation as pt is available.
--- NOTE | 2022-07-23 10:41 | PM.IMPN ---
Progress Note: A&P Assessment and Plan (1) Head injury: Code(s): S09.90XA - Unspecified injury of head, initial encounter Status: Acute Assessment and Plan: Appears to be a mechanical fall, appreciate PT/OT, CT head nonacute No signs of concussion or further injury at this time, monitor Refer to ophthalmology on an outpatient basis per Nephrology recommendations (2) Contusion of face: Code(s): S00.83XA - Contusion of other part of head, initial encounter Status: Acute Assessment and Plan: No fracture, stable (3) Ground-level fall: Code(s): W18.30XA - Fall on same level, unspecified, initial encounter Status: Acute Assessment and Plan: Suspect mechanical etiology, see above (4) Generalized weakness: Code(s): R53.1 - Weakness Status: Acute Assessment and Plan: Appreciate PT/OT (5) End stage renal disease on dialysis: Code(s): N18.6 - End stage renal disease; Z99.2 - Dependence on renal dialysis Status: Acute Assessment and Plan: Nephrology consult appreciated (6) Acute hypokalemia: Code(s): E87.6 - Hypokalemia Status: Acute Assessment and Plan: Resolved Plan DVT prophylaxis with SCDs GI prophylaxis not indicated Code status full code Discharge pending safe disposition per care coordination, home health care versus SNF, family reviewing options, medically stable for discharge 07/22 Subjective Date/time seen: 07/23/22 10:41 Interval history: 72-year-old female who lives at home with her daughter is presenting with end-stage renal disease on hemodialysis presenting with head trauma after a mechanical fall, long history of frequent falls, need for home health care versus placement at discharge. No overnight events noted. No chest pain or shortness of breath. No nausea, vomiting or diarrhea. No fevers or chills. Review of Systems Review of Systems: 12 point review of systems was assessed and was negative except as noted in the HPI Exam Narrative: General: No acute distress, alert and oriented per baseline HEENT: Minimal edema over right eye, abrasion healing CV: Regular rate and rhythm, S1, S2 Lungs: Clear to auscultation bilaterally, no rales or crackles noted, no wheezes, good air entry Abdomen: Soft, nontender, nondistended Extremities: Normal to inspection Skin: No rashes noted, no lesions or wounds seen Psych: Euthymic, normal affect Objective Data Vital Signs Vital Signs: Vital Signs - 24 hr 07/22/22 13:15 07/22/22 12:04 07/22/22 14:28 Temperature 98.0 F Pulse Rate 80 87 Respiratory Rate 16 Blood Pressure 127/64 Pulse Oximetry 99 Oxygen Delivery Room Air 07/22/22 16:00 07/22/22 20:10 07/22/22 20:00 Temperature Pulse Rate 87 83 Respiratory Rate Blood Pressure Pulse Oximetry Oxygen Delivery Room Air 07/22/22 20:00 07/22/22 22:00 07/23/22 06:00 Temperature 98.6 F 97.3 F L Pulse Rate 81 81 70 Respiratory Rate 18 18 Blood Pressure 136/51 L 138/62 Pulse Oximetry 97 99 Oxygen Delivery 07/23/22 00:00 07/23/22 04:00 07/23/22 07:05 Temperature Pulse Rate 81 80 74 Respiratory Rate 16 Blood Pressure Pulse Oximetry 98 Oxygen Delivery Room Air 07/23/22 07:05 07/23/22 08:00 Temperature Pulse Rate 74 79 Respiratory Rate 16 Blood Pressure Pulse Oximetry Oxygen Delivery Intake/Output Intake/Output: Intake & Output 07/20/22 07/21/22 07/22/22 07/23/22 23:59 23:59 23:59 23:59 Intake Total 680 1160 200 Balance 680 1160 200 Meds/Results Medications: Active Medications Generic Name Dose Route Start Last Admin Trade Name Freq PRN Reason Stop Dose Admin Acetaminophen 500 mg 07/21/22 06:09 07/21/22 17:40 Acetaminophen 500 Mg Tablet PO 500 mg Q6H PRN Administration Pain (Scale Score 1-3) Hydrocodone Bitart/Acetaminophen 1 tab
--- NOTE | 2022-07-23 10:46 | PM.DS ---
DS: Admitting Diagnosis Discharge Date 07/23/22 Admitting Diagnosis fall DS: Discharge Diagnosis Discharge Diagnosis (1) Head injury: Code(s): S09.90XA - Unspecified injury of head, initial encounter Status: Acute Assessment and Plan: Appears to be a mechanical fall, appreciate PT/OT, CT head nonacute No signs of concussion or further injury at this time, monitor Refer to ophthalmology on an outpatient basis per Nephrology recommendations (2) Contusion of face: Code(s): S00.83XA - Contusion of other part of head, initial encounter Status: Acute Assessment and Plan: No fracture, stable (3) Ground-level fall: Code(s): W18.30XA - Fall on same level, unspecified, initial encounter Status: Acute Assessment and Plan: Suspect mechanical etiology, see above (4) Generalized weakness: Code(s): R53.1 - Weakness Status: Acute Assessment and Plan: Appreciate PT/OT (5) End stage renal disease on dialysis: Code(s): N18.6 - End stage renal disease; Z99.2 - Dependence on renal dialysis Status: Acute Assessment and Plan: Nephrology consult appreciated (6) Acute hypokalemia: Code(s): E87.6 - Hypokalemia Status: Acute Assessment and Plan: Resolved Plan DVT prophylaxis with SCDs GI prophylaxis not indicated Code status full code Discharge pending safe disposition per care coordination, home health care versus SNF, family reviewing options, medically stable for discharge today DS: Summary Hospital Course Hospital Course: 72-year-old female who lives at home with her daughter is presenting with end-stage renal disease on hemodialysis presenting with head trauma after a mechanical fall, long history of frequent falls, need for home health care versus placement at discharge. Appears to be a mechanical fall, appreciate PT/OT, CT head nonacute No signs of concussion or further injury at this time, monitor Refer to ophthalmology on an outpatient basis per Nephrology recommendations Discharge pending safe disposition per care coordination, home health care versus SNF, family reviewing options, medically stable for discharge 07/22 See above and med rec for details. Time Spent with Patient Time attestation: Total time spent providing and/or coordinating discharge services: Exam Narrative: General: No acute distress, alert and oriented per baseline HEENT: Minimal edema over right eye, abrasion healing CV: Regular rate and rhythm, S1, S2 Lungs: Clear to auscultation bilaterally, no rales or crackles noted, no wheezes, good air entry Abdomen: Soft, nontender, nondistended Extremities: Normal to inspection Skin: No rashes noted, no lesions or wounds seen Psych: Euthymic, normal affect DS: Data Data Completed and Pending Labs on day of discharge: Labs from last 24 hours 07/23/22 07/23/22 05:33 05:33 WBC 5.8 RBC 2.98 L Hgb 9.2 L Hct 29.7 L MCV 99.7 MCH 30.9 MCHC 31.0 L RDW 15.0 H Plt Count 155 MPV 10.0 Immature Gran % (Auto) 0.5 Neut % (Auto) 61.5 Lymph % (Auto) 24.4 [place] % (Auto) 10.4 H Eos % (Auto) 2.9 Baso % (Auto) 0.3 Lymph # (Auto) 1.41 [place] # (Auto) 0.6 Eos # (Auto) 0.2 Baso # (Auto) 0.0 Abs Immat Gran (auto) 0.03 Absolute Neuts (auto) 3.6 Absolute Nucleated RBC 0.0 Nucleated RBC % 0.0 Sodium 133 L Potassium 3.9 Chloride 94 L Carbon Dioxide 35 H Anion Gap 4 L BUN 43 H D Creatinine 6.80 H Estim Creat Clear Calc Not Reportable Estimated GFR 7 L Glucose 74 Calcium 9.4 Total Bilirubin 0.5 AST 19 ALT 10 Alkaline Phosphatase 72 Total Protein 6.0 L Albumin 2.9 L Discharge Plan Discharge Attending physician on discharge: Marisela Dozier Consulting providers: Karan Gonzalez Discharging Clinician: Marisela Dozier Anticipated Discharge Date/Time: 07/23/22 10
--- NOTE | 2022-07-23 13:32 | PCOTNOTE ---
Attempted OT treatment patient is off the unit at this time, will follow.
[2022-07-23] MEDS: carvediloL 12.5 MG TABLET PO ×2 (13:55→20:07)
[2022-07-23] MEDS: amLODIPine BESYLATE 5 MG TABLET PO (13:56)
[2022-07-23] MEDS: hydrALAZINE HCL 50 MG TABLET PO ×2 (13:57→17:31)
[2022-07-23] MEDS: ISOSORBIDE MONONITRATE 30 MG TAB.ER.24H PO (13:57)
[2022-07-23] MEDS: HYDROcodone/acetaminophen (*CRX) 5-325 MG TABLET 1 TAB PO (20:07)
[2022-07-23] MEDS: PANTOPRAZOLE 40 MG TABLET PO (20:07)
[2022-07-23] MEDS: SIMVASTATIN 20 MG TABLET PO (20:07)
[2022-07-24] VITALS (7 sets, daily range): BP systolic 109–141; BP diastolic 45–65; PULSE 81–86; RESP 18; TEMP 36.3–36.6; O2SAT 96–97
[2022-07-24 05:11] LABS: Basophils Percent Auto 0.3 % (0.2-1.2); Eosinophils Absolute Auto 0.2 K/mm3 (0-0.3); Eosinophils Percent Auto 3.1 % (0-4.4); Hematocrit 30.2 % (37.0-47.0); Hemoglobin 9.6 g/dL (12.0-15.0); Immature Granulocyte Absolute 0.03 K/mm3 (0.00-0.031); Immature Granulocyte Percent A 0.5 % (0-0.5); Lymphocytes Absolute Auto 1.57 K/mm3 (0.9-3.2); Lymphocytes Percent Auto 26.9 % (18.3-44.2); Mean Corpuscular HGB Conc 31.8 g/dl (32-36); Mean Corpuscular Hemoglobin 30.9 pg (26-34); Mean Corpuscular Volume 97.1 fl (80-100); Monocytes Absolute Auto 0.7 K/mm3 (0.1-0.6); Monocytes Percent Auto 11.8 % (2.6-8.5); Neutrophils Absolute Auto 3.4 K/mm3 (1.3-6.7); Neutrophils Percent Auto 57.4 % (45.5-73.1); Platelet Count Result 156 k/mm3 (150-375); Red Blood Count 3.11 M/mm3 (4.2-5.4); Red Cell Distribution Width 14.6 % (11.5-14.5); White Blood Count 5.8 K/mm3 (4.5-10.0)
[2022-07-24 05:28] LABS: Alanine Aminotransferase 11 U/L (6-35); Albumin Level 3.1 g/dL (3.5-5.1); Alkaline Phosphatase 83 U/L (38-126); Aspartate Amino Transferase 21 U/L (14-36); Bilirubin,Total 0.5 mg/dL (0.2-1.3); Blood Urea Nitrogen 20 mg/dL (7-17); Calcium 8.9 mg/dL (8.4-10.2); Carbon Dioxide > 40 mmol/L (22-30); Chloride 93 mmol/L (98-107); Estimated Glomerular Filt Rate 12; Glucose 75 mg/dL (65-110); Sodium 136 mmol/L (137-145)
[2022-07-24] MEDS: UMECLIDINIUM BROMIDE 62.5 MCG ELLIPTA 1 PUFF INHALATION (07:41)
[2022-07-24] MEDS: ASPIRIN 81 MG CHEWABLE TABLET 324 MG PO (08:51)
[2022-07-24] MEDS: FUROSEMIDE 40 MG TABLET PO (08:51)
[2022-07-24] MEDS: ISOSORBIDE MONONITRATE 30 MG TAB.ER.24H PO (08:51)
[2022-07-24] MEDS: DONEPEZIL HCL 10 MG TABLET BY MOUTH (08:51)
[2022-07-24] MEDS: hydrALAZINE HCL 50 MG TABLET PO ×3 (08:52→17:37)
[2022-07-24] MEDS: allopurinoL 100 MG TABLET PO (08:52)
[2022-07-24] MEDS: amLODIPine BESYLATE 5 MG TABLET PO (08:52)
[2022-07-24] MEDS: SEVELAMER CARBONATE 800 MG TABLET 1600 MG BY MOUTH ×3 (08:52→17:37)
[2022-07-24] MEDS: CYCLOBENZAPRINE HCL 5 MG TABLET PO ×3 (08:52→17:39)
[2022-07-24] MEDS: CALCIUM ACETATE 667 MG TABLET PO ×2 (08:52→17:37)
[2022-07-24] MEDS: carvediloL 12.5 MG TABLET PO (08:52)
--- NOTE | 2022-07-24 09:07 | PM.IMPN ---
Progress Note: A&P Assessment and Plan (1) Head injury: Code(s): S09.90XA - Unspecified injury of head, initial encounter Status: Acute Assessment and Plan: Appears to be a mechanical fall. CT head nonacute. No signs of fracture. On ASA on admisison. Appreciate PT/OT Refer to ophthalmology on an outpatient basis per Nephrology recommendations (2) Contusion of face: Code(s): S00.83XA - Contusion of other part of head, initial encounter Status: Acute Assessment and Plan: As above. Continue supportive care. No fracture (3) Ground-level fall: Code(s): W18.30XA - Fall on same level, unspecified, initial encounter Status: Acute Assessment and Plan: Suspect mechanical etiology As above (4) Generalized weakness: Code(s): R53.1 - Weakness Status: Acute Assessment and Plan: PT/OT ordered. (5) End stage renal disease on dialysis: Code(s): N18.6 - End stage renal disease; Z99.2 - Dependence on renal dialysis Status: Acute Assessment and Plan: Continue dialysis as scheduled. Appreciate Nephrology input. (6) Acute hypokalemia: Code(s): E87.6 - Hypokalemia Status: Acute Assessment and Plan: Resolved. Defer to nephrology for further management. (7) Ankle fracture: Code(s): S82.899A - Other fracture of unspecified lower leg, initial encounter for closed fracture Status: Acute Assessment and Plan: It was noted patient was wearing a left lower extremity brace due to ankle fracture 3 months ago.?Continue bracing. Have her follow-up with orthopedics. Subjective Date/time seen: 07/24/22 09:07 Interval history: 72yo female with ESRD who lives at home with her daughter presented with head trauma after a mechanical fall. She has a hx of falls. Assuming care. Chart reviewed. No problems overnight. Feels well. Slept okay. Complains of headaches since the falls that are mild and are not worsening. Controlled with acetaminophen and [place]. HD on //Fri - tolerated HD well yesterday. Exam Narrative: AF 97.9 140/65 85 18 97% ra Gen - NARD HEENT - dime sized raised area above her right eye with periorbital edema and ecchymosis. right sclearl hemorrhage noted. Chest - CTA bilaterally, nml RR CV - RRR S1/S2. Tele showing no significnat dysrhythmias Abd - Soft, NT/ND, Positive BS. pain pump left falnk Ext - No right pedal edema. Left leg in boot. thrill and bruit left UE Neuro - Alert and oriented. No focal findings. Psych - Nml mood and affect Skin - Warm and dry Objective Data Vital Signs Vital Signs: Vital Signs - 24 hr 07/23/22 09:28 07/23/22 09:50 07/23/22 10:00 Temperature 98.2 F Pulse Rate 81 79 79 Respiratory Rate 20 Blood Pressure 153/64 H 147/76 H 153/77 H Pulse Oximetry Oxygen Delivery 07/23/22 10:20 07/23/22 10:40 07/23/22 11:00 Temperature Pulse Rate 80 81 81 Respiratory Rate Blood Pressure 140/75 130/72 143/77 H Pulse Oximetry Oxygen Delivery 07/23/22 11:20 07/23/22 11:40 07/23/22 12:00 Temperature Pulse Rate 83 83 82 Respiratory Rate Blood Pressure 141/72 H 126/66 135/73 Pulse Oximetry Oxygen Delivery 07/23/22 12:20 07/23/22 12:40 07/23/22 12:50 Temperature Pulse Rate 83 85 83 Respiratory Rate Blood Pressure 137/71 127/71 151/81 H Pulse Oximetry Oxygen Delivery 07/23/22 12:55 07/23/22 13:55 07/23/22 12:00 Temperature 98.2 F Pulse Rate 82 90 84 Respiratory Rate 16 Blood Pressure 146/74 H Pulse Oximetry Oxygen Delivery 07/23/22 14:00 07/23/22 16:00 07/23/22 19:45 Temperature 97.8 F Pulse Rate 87 85 Respiratory Rate 16 Blood Pressure 135/65 Pulse Oximetry 96 Oxygen Delivery Room Air 07/23/22 20:07 07/23/22 20:41 07/23/22 20:00 Temperature 97.8 F Pulse Rate 86 85 84 Respiratory Rate 18 Blood Pressure 133/55 L Pulse Oximetry
--- NOTE | 2022-07-24 11:00 | PM.PNNEP ---
Progress Note: A&P Assessment and Plan (1) End stage renal disease: Code(s): N18.6 - End stage renal disease Status: Chronic Assessment and Plan: end-stage renal disease hypertensive renal disease anemia of chronic kidney disease secondary hyperparathyroidism hypokalemia fall with injury as described above Plan -hemoglobin is stable - much more awake and alert, eye looks better - vitals stable - okay for discharge from a kidney perspective, follow up outpatient on a Friday, , Friday dialysis schedule Subjective Date/time seen: 07/24/22 11:00 chief complaint: Follow-up of End Stage renal disease Review of Systems Review of Systems: feels better, sitting up in a chair, swelling around the right eye is better, conjunctiva on the right eye looks better too. No shortness of breath. Tolerated dialysis yesterday. Exam Narrative: Well-developed well-nourished, sitting up in a chair today, sitting upright, vital signs as stated, skin turgor normal, right scalp hematoma better, right eyelid looks better, will write conjunctivae also looks better, duty negative, regular rate abdomen: Stable soft abdomen, edema negative Objective Data Vital Signs Vital Signs: Vital Signs - 24 hr 07/23/22 11:20 07/23/22 11:40 07/23/22 12:00 Temperature Pulse Rate 83 83 82 Respiratory Rate Blood Pressure 141/72 H 126/66 135/73 Pulse Oximetry Oxygen Delivery 07/23/22 12:20 07/23/22 12:40 07/23/22 12:50 Temperature Pulse Rate 83 85 83 Respiratory Rate Blood Pressure 137/71 127/71 151/81 H Pulse Oximetry Oxygen Delivery 07/23/22 12:55 07/23/22 13:55 07/23/22 12:00 Temperature 36.8 C Pulse Rate 82 90 84 Respiratory Rate 16 Blood Pressure 146/74 H Pulse Oximetry Oxygen Delivery 07/23/22 14:00 07/23/22 16:00 07/23/22 19:45 Temperature 36.6 C Pulse Rate 87 85 Respiratory Rate 16 Blood Pressure 135/65 Pulse Oximetry 96 Oxygen Delivery Room Air 07/23/22 20:07 07/23/22 20:41 07/23/22 20:00 Temperature 36.6 C Pulse Rate 86 85 84 Respiratory Rate 18 Blood Pressure 133/55 L Pulse Oximetry 95 Oxygen Delivery 07/24/22 00:00 07/24/22 04:11 07/24/22 04:00 Temperature 36.6 C Pulse Rate 85 86 83 Respiratory Rate 18 Blood Pressure 140/65 Pulse Oximetry 97 Oxygen Delivery 07/24/22 08:52 07/24/22 09:40 Temperature Pulse Rate 85 Respiratory Rate Blood Pressure Pulse Oximetry Oxygen Delivery Room Air Intake/Output Intake/Output: Intake & Output 07/21/22 07/22/22 07/23/22 07/24/22 23:59 23:59 23:59 23:59 Intake Total 680 1160 830 770 Output Total 2000 0 Balance 680 1160 -1170 770 Meds/Results Medications: Active Medications Generic Name Dose Route Start Last Admin Trade Name Freq PRN Reason Stop Dose Admin Acetaminophen 500 mg 07/21/22 06:09 07/21/22 17:40 Acetaminophen 500 Mg Tablet PO 500 mg Q6H PRN Administration Pain (Scale Score 1-3) Hydrocodone Bitart/Acetaminophen 1 tab 07/21/22 15:26 07/23/22 20:07 Hydrocodone/Acetaminophen (*Crx) 5-325 Mg Tablet PO 1 tab Q4H PRN Administration Pain Rated 4-6 Albuterol 2 puff 07/21/22 06:09 Albuterol Sulfate (*Sp) Aerosol 1 Puff INHALATION Q4H PRN Shortness Of Breath Allopurinol 100 mg 07/21/22 08:00 07/24/22 08:52 Allopurinol 100 Mg Tablet PO 100 mg DAILY@0800 [facility] Administration Amlodipine Besylate 5 mg 07/21/22 09:00 07/24/22 08:52 Amlodipine Besylate 5 Mg Tablet PO 5 mg QAM [facility] Administration Aspirin 324 mg 07/21/22 08:00 07/24/22 08:51 Aspirin 81 Mg Chewable Tablet PO 324 mg DAILY@0800 [facility] Administration Calcium Acetate 667 mg 07/21/22 08:00 07/24/22 08:52 Calcium Acetate 667 Mg Tablet PO 667 mg BIDWM [facility] Administration Carvedilol 12.5 mg 07/21/22 09:00 07/24/22 08:52 Carvedilol 12.5 Mg Tablet PO 12.5
[2022-07-24] MEDS: HYDROcodone/acetaminophen (*CRX) 5-325 MG TABLET 1 TAB PO (11:44)
--- NOTE | 2022-07-26 06:52 | PM.DS ---
DS: Admitting Diagnosis Discharge Date 07/24/22 Admitting Diagnosis Fall DS: Discharge Diagnosis Discharge Diagnosis (1) Head injury: Code(s): S09.90XA - Unspecified injury of head, initial encounter Status: Acute (2) Contusion of face: Code(s): S00.83XA - Contusion of other part of head, initial encounter Status: Acute (3) Ground-level fall: Code(s): W18.30XA - Fall on same level, unspecified, initial encounter Status: Acute (4) Generalized weakness: Code(s): R53.1 - Weakness Status: Acute (5) End stage renal disease on dialysis: Code(s): N18.6 - End stage renal disease; Z99.2 - Dependence on renal dialysis Status: Acute (6) Acute hypokalemia: Code(s): E87.6 - Hypokalemia Status: Acute (7) Ankle fracture: Code(s): S82.899A - Other fracture of unspecified lower leg, initial encounter for closed fracture Status: Acute DS: Summary Hospital Course Reason for hospitalization: 72yo female with ESRD who lives at home with her daughter presented with head trauma after a mechanical fall. She has a hx of falls. Please see H&P for details. Hospital Course: Appears to be a mechanical fall. CT head showing no acute findings. CT of the maxillofacial and cervical spine showing large right periorbital hematoma without acute facial fracture. Severe cervical spondylosis at C5-6, mild widening of C6-7 disc space of unclear significance and airspace opacities in the lung apices. CXR was clear. It was noted patient was wearing a left lower extremity brace due to ankle fracture 3 months ago.?We continued with the bracing. Patient with ESRD. Nephrology consulted and we continued dialysis per their instructions. Patient and family requesting palliative care consult. A discharge order was already in place from the day before and patient was discharged on 07/24/22. Status at Discharge Cognitive/behavioral status at discharge: stable Time Spent with Patient Time attestation: Total time spent providing and/or coordinating discharge services: 34 minutes Time spent: Greater than 30 minutes Exam Narrative: AF 97.9 140/65 85 18 97% ra Gen - NARD HEENT - dime sized raised area above her right eye with periorbital edema and ecchymosis. right sclearl hemorrhage noted. Chest - CTA bilaterally, nml RR CV - RRR S1/S2. Tele showing no significnat dysrhythmias Abd - Soft, NT/ND, Positive BS. pain pump left falnk Ext - No right pedal edema. Left leg in boot. thrill and bruit left UE Neuro - Alert and oriented. No focal findings. Psych - Nml mood and affect Skin - Warm and dry Discharge Plan Discharge Attending physician on discharge: Marisela Dozier Consulting providers: Karan Gonzalez ; Parviz Holt ; Devang Contreras ; Arian Neely ; Marisela Dozier Discharging Clinician: Marisela Dozier Anticipated Discharge Date/Time: 07/23/22 10:52 Patient Disposition: Home Health Service Activity: as tolerated Diet: as tolerated Discharge Instructions: Per Care Coordination: [facility] has been arranged and will follow for PT/OT eval and treat. [facility] will contact you prior to their first visit. [facility] can be contacted at [phone]. [facility] anticipates starting services with you on Friday, July 29. Nursing please fax discharge paperwork to [phone]. Patient Instructions: Antibiotic Form, Heart Failure (DC) Stand Alone Forms: General Discharge Information Follow-up/Referrals: Beau Pascal [Other] Fozia,Amrik Dowling [Primary Care Provider] - Karan Gonzalez MD [Physician] - Discharge Medications: Continued carvedilol 25 mg tablet 12.5 mg PO Q12H Rx Instructions: must administer with a meal/food pantoprazole 40 mg tablet,delayed release (DR/EC) 40 mg PO HS simvastatin 20 mg tablet 20 mg PO HS allopurinol 100 mg tablet 100 mg
== END 2022-07-24 17:55 | disposition home health service (06) ==
LOC: ANHED 07-21 03:08 → ANH2MED 07-21 04:16
PROVIDERS: Internal Medicine Nephrology; Student in an Organized Health Care Education/Training Program; Admitting Provider Internal Medicine; Emergency Provider Emergency Medicine; PCP Internal Medicine Infectious Disease; Visit Provider Internal Medicine
DX: S09.90XA Unspecified injury of head, initial encounter (principal); S00.83XA Contusion of other part of head, initial encounter; W18.30XA Fall on same level, unspecified, initial encounter; Z91.81 History of falling; R53.1 Weakness; N18.6 End stage renal disease; Z99.2 Dependence on renal dialysis; E87.6 Hypokalemia; I12.0 Hypertensive chronic kidney disease with stage 5 chronic kidney disease or end stage renal disease; E78.5 Hyperlipidemia, unspecified; I69.354 Hemiplegia and hemiparesis following cerebral infarction affecting left non-dominant side; I69.311 Memory deficit following cerebral infarction; Z87.891 Personal history of nicotine dependence; I42.8 Other cardiomyopathies; J44.9 Chronic obstructive pulmonary disease, unspecified; D63.1 Anemia in chronic kidney disease; S82.892A Other fracture of left lower leg, initial encounter for closed fracture; Z20.822 Contact with and (suspected) exposure to COVID-19
CPT/HCPCS: 36415; 70450; 70486; 71045; 72125; 80053; 82550; 85025; 86706; 87340; 87636; 93005; 94640; 96365; 96366; 96375; 97161; 97166; 99285; A9270; G0257; G0378; J0131; J2270; J3480; J7030

== ENCOUNTER 2022-10-16 16:47 | Emergency (ER) | payer MEDICARE, OTHER, SELFPAY ==
[2022-10-16] VITALS (10 sets, daily range): BP systolic 120–174; BP diastolic 66–80; PULSE 86–88; RESP 15–17; TEMP 36.4; O2SAT 94–98
--- NOTE | ~2022-10-16 | XR_ITS ---
EXAM: XR knee RT 3V DATE: 10/16/2022 18:13 HISTORY: swelling, pain, warmth . COMPARISON: None available. FINDINGS: The lateral view is limited by obliquity. Decreased mineralization. No fracture or disloca tion. No lytic or blastic lesion. Mild tricompartmental osteoarthritis. No erosion or periosteal tong ge. Vascular calcifications. IMPRESSION: No acute osseous finding in the right knee. Reviewed, dictated and finalized at location K.
--- NOTE | ~2022-10-16 | US_ITS ---
EXAMINATION: US venous doppler LE RT DATE: 10/16/2022 19:53 INDICATION: worsening swelling in RLE, pain around knee . TECHNIQUE: Grayscale images without and with compression and Doppler images of the right lower extrem ity veins were obtained. COMPARISON: None FINDINGS: The right common femoral vein, profunda (deep) femoral vein, femoral vein, popliteal vein, peroneal v ein, posterior tibial veins, gastrocnemius vein, and greater saphenous vein are patent. Subcutaneous edema. IMPRESSION: 1. Patent right lower extremity veins. No evidence of deep venous thrombosis. Reviewed, dictated and finalized at location K.
--- NOTE | 2022-10-16 18:46 | ED.EXTPRO ---
HPI - Extremity Problem General Chief complaint: Extremity Problem,Nontraumatic <DONOVAN Wise Last Filed: 10/17/22 04:09> Stated complaint: Right leg swelling with temp and tightness <DONOVAN Wise Last Filed: 10/17/22 04:09> Time Seen by Provider: 10/16/22 18:24 <DONOVAN Wise Last Filed: 10/17/22 04:09> Source: patient <DONOVAN Wise Last Filed: 10/17/22 04:09> Mode of arrival: ambulatory <DONOVAN Wise Filed: 10/17/22 04:09> Limitations: no limitations <DONOVAN Wise Last Filed: 10/17/22 04:09> History of Present Illness HPI Narrative: Patient is a 72 y/o female who presents to the ED with c/o R knee pain. Patient reports having chronic swelling in her lower extremities, chronic pain in her knees related to arthritis. Over the last couple of days, she has noticed increased swelling in her right leg and around her right knee. She has had increased pain in her right knee today. She is able to ambulate and bear weight still, but does have some discomfort with this. She was seen by her primary care doctor and was told her right knee felt somewhat warm. She was sent here for further evaluation. Patient has taken Tylenol for her pain. Denies any numbness or tingling. Denies any fevers. Denies any fall or injury. Denies any chest pain or shortness of breath. Patient has history of CHF and takes Lasix daily. Patient is a dialysis patient, //Fri. She has not missed any appointments. <DONOVAN Wise Last Filed: 10/17/22 04:09> Related Data Home medications: Home Medications Medication Instructions Recorded Confirmed pantoprazole 40 mg tablet,delayed 40 mg PO HS 12/13/20 07/21/22 release simvastatin 20 mg tablet 20 mg PO HS 12/13/20 07/21/22 allopurinol 100 mg tablet 100 mg PO DAILY 12/21/20 07/21/22 acetaminophen 500 mg tablet 500 mg PO Q6H PRN Pain (Scale 01/11/21 07/21/22 Score 1-3) hydralazine 50 mg tablet 50 mg PO TID 01/11/21 07/21/22 isosorbide mononitrate 30 mg 30 mg PO QAM 01/11/21 07/21/22 tablet,extended release 24 hr carvedilol 25 mg tablet 12.5 mg PO Q12H 12/10/21 07/21/22 albuterol sulfate 90 mcg/actuation 1 puff inhalation Q4H PRN 01/04/22 07/21/22 aerosol inhaler Shortness Of Breath fluticasone propionate 50 2 spray intranasal DAILY PRN Dry 01/04/22 07/21/22 mcg/actuation nasal Nasal Passages spray,suspension sevelamer carbonate 800 mg tablet See Rx Instructions .Route .COMPLEX 01/04/22 07/21/22 calcium acetate 667 mg tablet See Rx Instructions .Route .COMPLEX 07/21/22 07/21/22 diphenhydramine HCl 25 mg capsule 25 mg PO DAILY 07/21/22 07/21/22 (Benadryl) lidocaine-prilocaine 2.5 %-2.5 % 1 applic topical 3XW 07/21/22 07/21/22 topical cream linaclotide 145 mcg capsule 145 mcg PO DAILY 07/21/22 07/21/22 (Linzess) tiotropium bromide 1.25 1.25 mcg inhalation BID 07/21/22 07/21/22 mcg/actuation mist for inhalation (Spiriva Respimat) <Erica Nugent PA-C - Last Filed: 10/17/22 04:09> Allergies/Adverse reactions: Allergies Allergy/AdvReac Type Severity Reaction Status Date / Time iohexol AdvReac AVOIDS Verified 07/20/22 22:16 [From contrast - CT, X-RAY] Sulfa (Sulfonamide AdvReac Nausea and Verified 07/20/22 22:16 Antibiotics) Vomiting <Erica Nugent PA-C - Last Filed: 10/17/22 04:09> Review of Systems Review of Systems: CONSTITUTIONAL: Denies fever, chills, or sweats. CARDIOVASCULAR: Denies chest pain. RESPIRATORY: Denies dyspnea. GASTROINTESTINAL: Denies abdominal pain, nausea, vomiting. SKIN: See HPI. MUSCULOSKELETAL: See HPI. NEUROLOGIC: Denies tingling, numbness, or weakness. <Erica Nugent PA-C - Last Filed: 10/17/22 04:09> All systems reviewed & are unremarkable except as noted in HPI and below <Erica Nugent PA-C - Last Filed: 10/17/22 04:09> [facility]
[2022-10-16 18:55] LABS: Basophils Percent Auto 0.5 % (0.2-1.2); Eosinophils Absolute Auto 0.1 K/mm3 (0-0.3); Eosinophils Percent Auto 2.4 % (0-4.4); Hematocrit 36.4 % (37.0-47.0); Hemoglobin 11.2 g/dL (12.0-15.0); Immature Granulocyte Absolute 0.02 K/mm3 (0.00-0.031); Immature Granulocyte Percent A 0.3 % (0-0.5); Lymphocytes Absolute Auto 1.55 K/mm3 (0.9-3.2); Lymphocytes Percent Auto 26.3 % (18.3-44.2); Mean Corpuscular HGB Conc 30.8 g/dl (32-36); Mean Corpuscular Hemoglobin 30.3 pg (26-34); Mean Corpuscular Volume 98.4 fl (80-100); Mean Platelet Volume 9.5 fl (7.4-10.4); Monocytes Absolute Auto 0.6 K/mm3 (0.1-0.6); Monocytes Percent Auto 10.5 % (2.6-8.5); Neutrophils Absolute Auto 3.5 K/mm3 (1.3-6.7); Platelet Count Result 144 k/mm3 (150-375); Red Cell Distribution Width 16.6 % (11.5-14.5); White Blood Count 5.9 K/mm3 (4.5-10.0)
[2022-10-16 19:12] LABS: Alanine Aminotransferase 11 U/L (6-35); Albumin Level 3.7 g/dL (3.5-5.1); Alkaline Phosphatase 117 U/L (38-126); Anion Gap 3 mmol/L (8-16); Aspartate Amino Transferase 23 U/L (14-36); Bilirubin,Total 0.4 mg/dL (0.2-1.3); Blood Urea Nitrogen 35 mg/dL (7-17); CRP 1.6 mg/dL (<1.0); Calcium 9.1 mg/dL (8.4-10.2); Carbon Dioxide 36 mmol/L (22-30); Chloride 97 mmol/L (98-107); Estimated Glomerular Filt Rate 10; Glucose 76 mg/dL (65-110); Potassium 3.8 mmol/L (3.4-5.0); Sodium 136 mmol/L (137-145)
[2022-10-16 19:24] LABS: Erythrocyte Sedimentation Rate 22 mm/hr (0-20)
[2022-10-16 19:36] LABS: NT Pro B Type Natriuretic Pept 15800 pg/mL (19.9-100)
== END 2022-10-16 22:25 | disposition home or self-care (01) ==
PROVIDERS: Emergency Provider Physician Assistant; PCP Internal Medicine Infectious Disease
DX: M25.561 Pain in right knee (principal); N18.6 End stage renal disease; R22.41 Localized swelling, mass and lump, right lower limb; I13.2 Hypertensive heart and chronic kidney disease with heart failure and with stage 5 chronic kidney disease, or end stage renal disease; I50.9 Heart failure, unspecified; D63.1 Anemia in chronic kidney disease; N25.0 Renal osteodystrophy; I69.911 Memory deficit following unspecified cerebrovascular disease; I69.954 Hemiplegia and hemiparesis following unspecified cerebrovascular disease affecting left non-dominant side; J44.9 Chronic obstructive pulmonary disease, unspecified; E78.5 Hyperlipidemia, unspecified; G89.4 Chronic pain syndrome; G47.33 Obstructive sleep apnea (adult) (pediatric); M17.0 Bilateral primary osteoarthritis of knee; Z99.2 Dependence on renal dialysis; Z87.891 Personal history of nicotine dependence; Z98.42 Cataract extraction status, left eye; Z98.41 Cataract extraction status, right eye; Z90.710 Acquired absence of both cervix and uterus
CPT/HCPCS: 36415; 73562; 80053; 83880; 85025; 85652; 86140; 93971; 99284

== ENCOUNTER 2023-07-19 16:56 | Observation (INO) | payer MEDICARE, OTHER, SELFPAY ==
--- NOTE | ~2023-07-19 | XR_ITS ---
EXAMINATION: XR chest 2V Exam Date/Time: 07/19/2023 18:10 CDT HISTORY: weakness Comparison: 07/21/2022. RESULT: Lines, tubes, and devices: None. Lungs and pleura: Emphysematous change with scattered scarring and architectural distortion. Moderat e diffuse reticular and reticulonodular opacities. Cardiomediastinal silhouette: Stable. Other: No acute osseous or upper abdominal finding. IMPRESSION: Pulmonary opacities may represent mild edema overlying emphysematous change, versus a component of re spiratory bronchiolitis. Reviewed, dictated and finalized at location K. IMPRESSION: Pulmonary opacities may represent mild edema overlying emphysematous change, ve rsus a component of respiratory bronchiolitis.
--- NOTE | ~2023-07-19 | US_ITS ---
EXAMINATION: US venous doppler LE RT DATE: 07/19/2023 18:13 INDICATION: right lower extremity edema . TECHNIQUE: Grayscale images without and with compression and Doppler images of the right lower extrem ity veins were obtained. COMPARISON: 10/16/2022 FINDINGS: The right common femoral vein, profunda (deep) femoral vein, femoral vein, popliteal vein, peroneal v ein, posterior tibial veins, and greater saphenous vein are patent. IMPRESSION: Patent right lower extremity veins. No evidence of deep venous thrombosis. Reviewed, dictated and finalized at location K.
[2023-07-19 17:09] VITALS: BP 134/64; PULSE 90; RESP 16; TEMP 36.9; O2SAT 95
--- NOTE | 2023-07-19 17:16 | ECG_ITS ---
Measurements Intervals Pfeifer Rate: 92 P: 56 PA: 172 QRS: -28 QRSD: 98 T: 14 QT: 372 QTc: 462 Interpretive Statements SINUS RHYTHM VOLTAGE CRITERIA FOR LVH ANTEROSEPTAL INFARCT, AGE INDETERMINATE INFERIOR INFARCT, AGE INDETERMINATE BASELINE ARTIFACT- I, III, AVL ABNORMAL ECG COMPARED TO ECG 07/21/2022 01:27:32 NO SIGNIFICANT CHANGES Electronically Signed On 07-20-2023 7:35:01 CDT by Devang Contreras D.O.
--- NOTE | 2023-07-19 17:17 | ED.WEAKNESS ---
HPI - Weakness General Chief complaint: Weakness <Eliza Adler PA-C - Last Filed: 07/20/23 17:28> Stated complaint: bilateral lower extremity swelling, lethary <Eliza Adler PA-C - Last Filed: 07/20/23 17:28> Time Seen by Provider: 07/19/23 17:10 <Eliza Adler PA-C - Last Filed: 07/20/23 17:28> Focused HPI: This is a 73-year-old female that presents to the emergency department for generalized weakness. Reports history of ESRD. She does dialysis Friday, and Friday. They were unable to do her dialysis today because she was too weak to help with transfers. She has also had swelling in her right lower extremity. Does report a cough. Denies fever, chest pain, shortness of breath, abdominal pain, vomiting. GENERAL: Elderly, well-nourished, and in no acute distress. HEAD: Normocephalic, atraumatic. CHEST: Clear to auscultation. ?No respiratory distress. HEART: Regular rate and rhythm.? NEURO: ?Alert and oriented x3. EXTREMITIES: Pitting edema to the right lower leg Patient screened in triage and initial orders placed.? ?Additional care and disposition to be based upon?diagnostic testing and treatment. <Eliza Adler PA-C - Last Filed: 07/20/23 17:28> Source: patient and family <DONOVAN Smith Last Filed: 07/20/23 17:28> Mode of arrival: wheelchair <DONOVAN Smith Last Filed: 07/20/23 17:28> Limitations: no limitations <DONOVAN Smith Last Filed: 07/20/23 17:28> Related Data Home medications: Home Medications Medication Instructions Recorded Confirmed pantoprazole 40 mg tablet,delayed 40 mg PO HS 12/13/20 07/20/23 release simvastatin 20 mg tablet 20 mg PO HS 12/13/20 07/20/23 allopurinol 100 mg tablet 100 mg PO DAILY 12/21/20 07/20/23 acetaminophen 500 mg tablet 500 mg PO Q6H PRN Pain (Scale 01/11/21 07/20/23 Score 1-3) hydralazine 50 mg tablet 50 mg PO TID 01/11/21 07/20/23 isosorbide mononitrate 30 mg 30 mg PO DAILY 01/11/21 07/20/23 tablet,extended release 24 hr carvedilol 25 mg tablet 12.5 mg PO Q12H 12/10/21 07/20/23 albuterol sulfate 90 mcg/actuation 1 puff inhalation Q4H PRN 01/04/22 07/20/23 aerosol inhaler Shortness Of Breath fluticasone propionate 50 2 spray intranasal DAILY PRN Dry 01/04/22 07/20/23 mcg/actuation nasal Nasal Passages spray,suspension sevelamer carbonate 800 mg tablet See Rx Instructions .Route .COMPLEX 01/04/22 07/20/23 calcium acetate 667 mg tablet 667 mg PO TIDWM 07/21/22 07/20/23 diphenhydramine HCl 25 mg capsule 25 mg PO DAILY 07/21/22 07/20/23 (Benadryl) lidocaine-prilocaine 2.5 %-2.5 % 1 applic topical 3XW 07/21/22 07/20/23 topical cream tiotropium bromide 1.25 1.25 mcg inhalation BID 07/21/22 07/20/23 mcg/actuation mist for inhalation (Spiriva Respimat) amlodipine 5 mg tablet (Norvasc) 5 mg PO DAILY 07/20/23 07/20/23 aspirin 81 mg chewable tablet 324 mg PO DAILY 07/20/23 07/20/23 donepezil 10 mg tablet 10 mg PO DAILY 07/20/23 07/20/23 <Eliza Adler PA-C - Last Filed: 07/20/23 17:28> Allergies/Adverse reactions: Allergies Allergy/AdvReac Type Severity Reaction Status Date / Time iohexol AdvReac AVOIDS Verified 07/20/23 00:38 [From contrast - CT, X-RAY] Sulfa (Sulfonamide AdvReac Nausea and Verified 07/20/23 00:38 Antibiotics) Vomiting <Eliza Adler PA-C - Last Filed: 07/20/23 17:28> Review of Systems Review of Systems: CONSTITUTIONAL: Denies fever, chills, or sweats. CARDIOVASCULAR: Chronic bilateral lower extremity swelling, right greater than left Denies chest pain, palpitations RESPIRATORY: Nonproductive, nonbloody cough Denies dyspnea. GASTROINTESTINAL: Denies abdominal pain, nausea, vomiting, or diarrhea. GENITOURINARY: Denies dysuria or hematuria. SKIN: Denies rash or itching. MUSCULOSKELETAL: Denies back pain, joint pain, or myalgia. NEUROLOGIC: Denies headache, numbness, dizziness, or weakness. PSYCHIATRIC: Denies anxiety or
[2023-07-19 17:41] LABS: Basophils Absolute Auto 0.1 K/mm3 (0.0-0.1); Basophils Percent Auto 0.5 % (0.2-1.2); Eosinophils Absolute Auto 0.1 K/mm3 (0-0.3); Eosinophils Percent Auto 1.3 % (0-4.4); Hematocrit 34.3 % (37.0-47.0); Hemoglobin 10.8 g/dL (12.0-15.0); Immature Granulocyte Absolute 0.12 K/mm3 (0.00-0.031); Immature Granulocyte Percent A 1.1 % (0-0.5); Lymphocytes Absolute Auto 1.34 K/mm3 (0.9-3.2); Lymphocytes Percent Auto 12.6 % (18.3-44.2); Mean Corpuscular HGB Conc 31.5 g/dl (32-36); Mean Corpuscular Hemoglobin 31.1 pg (26-34); Mean Corpuscular Volume 98.8 fl (80-100); Mean Platelet Volume 10.1 fl (7.4-10.4); Monocytes Absolute Auto 1.4 K/mm3 (0.1-0.6); Monocytes Percent Auto 13.1 % (2.6-8.5); Neutrophils Absolute Auto 7.6 K/mm3 (1.3-6.7); Neutrophils Percent Auto 71.4 % (45.5-73.1); Platelet Count Result 200 k/mm3 (150-375); Red Blood Count 3.47 M/mm3 (4.2-5.4); White Blood Count 10.6 K/mm3 (4.5-10.0)
[2023-07-19 17:54] LABS: Alanine Aminotransferase 14 U/L (6-35); Albumin Level 3.8 g/dL (3.5-5.1); Alkaline Phosphatase 107 U/L (38-126); Anion Gap 13 mmol/L (8-16); Aspartate Amino Transferase 26 U/L (14-36); Bilirubin,Total 0.6 mg/dL (0.2-1.3); Blood Urea Nitrogen 71 mg/dL (7-17); Calcium 10.5 mg/dL (8.4-10.2); Carbon Dioxide 30 mmol/L (22-30); Chloride 88 mmol/L (98-107); Estimated Glomerular Filt Rate 5; Glucose 62 mg/dL (65-110); Potassium 4.9 mmol/L (3.4-5.0); Sodium 131 mmol/L (137-145)
[2023-07-19 17:58] LABS: INR 1.3; Prothrombin Time 16.8 Seconds (11.1-14.7)
[2023-07-19 17:59] LABS: Partial Thromboplastin Time 46.4 Seconds (22.3-36.8)
[2023-07-19 18:03] LABS: NT Pro B Type Natriuretic Pept 8390 pg/mL (19.9-100)
[2023-07-19 18:17] LABS: Influenza A QL RT-PCR Negative (Negative); Influenza B QL RT-PCR Negative (Negative); RSV RNA, RT-PCR Negative (Negative); SARS-CoV-2 RNA PCR Negative (Negative)
[2023-07-19 18:50] VITALS: O2SAT 88
[2023-07-19 18:56] VITALS: O2SAT 95
[2023-07-19 20:21] LABS: Bacteria Urine 2+ /hpf; Need Manual Microscopic Reviewed; RBC Urine 0-2 /hpf (0-2); Squamous Epithelial Cell Urine Many /hpf (Few); WBC Urine 21-50 /hpf (0-3)
[2023-07-19 20:23] LABS: Appearance Urine Clear (Clear); Color Urine Yellow (Yellow); Glucose Urine UA Negative (Negative); Protein Urine 2+ mg/dL (Negative); Specific Grav Ur 1.015 (1.001-1.035); pH Urine 7.5 (5.0-9.0)
[2023-07-19 20:24] LABS: Bilirubin Urine Negative (Negative); Blood Urine Trace-intact (Negative); Ketones Urine Negative (Negative); Leukocyte Esterase Ur Negative LEU/UL (Negative); Nitrate Urine Negative (Negative); Urobilinogen Urine 0.2 mg/dL (<2.0)
[2023-07-19 20:25] LABS: Add Urine Microscopic? YES
--- NOTE | 2023-07-19 21:26 | PM.IMHP ---
H&P: HPI History of Present Illness Date/Time: 07/19/23 21:26 Chief Complaint: GENERALIZED WEAKNESS Narrative: THIS IS A 73-YEAR-OLD FEMALE WITH PAST MEDICAL HISTORY SIGNIFICANT FOR END-STAGE RENAL DISEASE ON HEMODIALYSIS, PATIENT DIALYZES Saturdays. SHE MISSED HER FRIDAY DIALYSIS SESSION DUE TO FEELING VERY WEAK UNABLE TO LEAVE THE HOUSE ON HER OWN DUE TO SIGNIFICANT TAXING EFFORT, HAS HAD POOR APPETITE, FEELING RUN DOWN, DENIES ANY CHILLS, FEVERS, NAUSEA, VOMITING, DIARRHEA, ABDOMINAL PAIN. HAS HAD A DRY COUGH. PRELIMINARY WORKUP HERE SHOWED URINALYSIS WITH NUMEROUS WBCS PRESENT. A CHEST X-RAY WAS REPORTED MILD EDEMA VERSUS BRONCHIOLITIS. PATIENT HAS BEEN ADMITTED FOR FURTHER EVALUATION MANAGEMENT AND TREATMENT. EXAMINATION: US venous doppler LE RT DATE: 07/19/2023 18:13 INDICATION: right lower extremity edema . TECHNIQUE: Grayscale images without and with compression and Doppler images of the right lower extremity veins were obtained. COMPARISON: 10/16/2022 FINDINGS: The right common femoral vein, profunda (deep) femoral vein, femoral vein, popliteal vein, peroneal vein, posterior tibial veins, and greater saphenous vein are patent. IMPRESSION: Patent right lower extremity veins. No evidence of deep venous thrombosis. EXAMINATION:? XR chest 2V Exam Date/Time:? 07/19/2023 18:10 CDT HISTORY: weakness ? Comparison:? 07/21/2022. RESULT: Lines, tubes, and devices:? None. Lungs and pleura:? Emphysematous change with scattered scarring and architectural distortion. Moderate diffuse reticular and reticulonodular opacities. Cardiomediastinal silhouette:? Stable. Other:? No acute osseous or upper abdominal finding. ? IMPRESSION: Pulmonary opacities may represent mild edema overlying emphysematous change, versus a component of respiratory bronchiolitis. Review of Systems Review of Systems: GENERALIZED WEAKNESS, DRY COUGH Constitutional: Constitutional: Denies chills, Denies fever(s) and Reports weakness Eyes: Eyes: Denies change in vision ENT: Denies dysphagia and Denies odynophagia Cardiovascular: Cardiovascular: Denies chest pain and Reports leg edema Respiratory: Respiratory: Reports cough (DRY) Gastrointestinal: Gastrointestinal: Denies abdominal pain, Denies dyspepsia, Denies diarrhea, Denies nausea and Denies vomiting Genitourinary: Genitourinary: Denies dysuria Musculoskeletal: Musculoskeletal: Reports muscle weakness Integumentary/Breasts: Skin/Breast: Denies rash Neurologic: Denies focal weakness and Denies Sensory deficit (Neuro) Psychiatric: Psychiatric: Reports no additional psychiatric complaints and Reports as per HPI Endocrine: Endocrine: Denies cold intolerance, Denies flushing, Denies heat intolerance, Denies polyphagia, Denies polydipsia and Denies palpitations Hematologic/Lymphatic: Hematologic/Lymphatic: Reports no additional hematologic/lymphatic complaints and Reports as per HPI Allergic/Immunologic: Allergic/Immunologic: Reports no additional allergic/immunologic complaints and Reports as per HPI PMFSH Past Medical History Medical History (Updated 07/20/23 @ 06:57 by Jd Clarke MD) Anemia in chronic kidney disease Arthritis Cerebrovascular accident Residual memory loss and left-sided weakness. Chronic obstructive pulmonary disease Chronic pain syndrome Pain pump in situ. End-stage renal disease on hemodialysis Hyperlipidemia Hypertension Obstructive sleep apnea Intolerant to CPAP. Renal osteodystrophy Surgical History Surgical History History of benign breast biopsy History of bilateral cataract extraction History of section History of hysterectomy Status post creation of arteriovenous fistula Status post right foot surgery Family History Family History Sibling Diabetes mellitus Heart disea
--- NOTE | 2023-07-19 22:53 | PC.NURSE ---
Numerous unsuccessful IV attempts by three RN's. suction roller notified.
[2023-07-20] VITALS (7 sets, daily range): BP systolic 125–148; BP diastolic 56–68; PULSE 85–104; RESP 16–18; TEMP 36.6–37.2; O2SAT 91–98; BMI 30.4
--- NOTE | 2023-07-20 00:30 | ADMGEN ---
This patient, Chito Paez, was admitted to 3 [facility] Surg Room 320-01. Patient/family oriented to hospital policies and general routines including ID bracelet, bed and alarms, visiting hours, pain management, procedures, bathroom and other care routines, personal items, smoking policy, room service/diet, and visiting hours. Information on how to activate the Rapid Response Team has been discussed. Patient/Family are encouraged to report perceived risks to care and to ask questions if they do not understand what they are told or what they should do.
[2023-07-20] MEDS: CEFEPIME 1 GM/NS 50 ML 1 GM/50 ML BAG IVPB (00:55)
--- NOTE | 2023-07-20 07:17 | PM.IMPN ---
Progress Note: A&P Assessment and Plan (1) UTI (urinary tract infection): Code(s): N39.0 - Urinary tract infection, site not specified Status: Acute Assessment and Plan: U/A with WBC 21-50, +2 bacteria but many squamous cells -received IV cefepime in the ED -mild leukocytosis of 10.6 -afebrile (2) Generalized weakness: Code(s): R53.1 - Weakness Status: Acute Assessment and Plan: Usually ambulates with a walker. Weakness of the last few days. -PT/OT consulted -Up ad any -fall precautions (3) End stage renal disease on dialysis: Code(s): N18.6 - End stage renal disease; Z99.2 - Dependence on renal dialysis Status: Acute Assessment and Plan: Friday, , Friday dialysis -Missed HD on Friday due to weakness -Nephrology has been consulted, rec's appreciated -Anticipate HD tomorrow -Not in acute respiratory distress, K+ is normal (4) Cardiomyopathy: Qualifiers: Cardiomyopathy type: other Qualified Code(s): I42.8 - Other cardiomyopathies Code(s): I42.9 - Cardiomyopathy, unspecified Status: Acute Assessment and Plan: Not decompensated. -Continue home medications (5) Chronic obstructive pulmonary disease: Code(s): J44.9 - Chronic obstructive pulmonary disease, unspecified Status: Acute Assessment and Plan: Reports dry, non-productive cough -Not on oxygen -Continue home inhalers -Decreased lower lobe bases with scant crackles likely from mild pulmonary edema 2/2 missed HD (6) Obstructive sleep apnea: Code(s): G47.33 - Obstructive sleep apnea (adult) (pediatric) Status: Acute Assessment and Plan: CPAP at night Subjective Date/time seen: 07/20/23 07:17 Interval history: This is a 73-year-old female with past medical history significant for end-stage renal disease on hemodialysis (Friday, , Friday), anemia of chronic disease, 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 She presented to the ER overnight with complaints of weakness. She missed her dialysis yesterday due to feeling weak and unable to leave the house on her own. She states she has had a poor appetite and has been feeling run down. In the ED her labs were significant for a leukocytosis of 10.6, hemoglobin 10.8, hematocrit 34.3, sodium 131, creatinine 9.40, glucose 62, calcium 10.5, and BNP 8300. Her UA showed high wbc's and 2+ bacteria however the sample contains many epithelial cells. Chest x-ray shows pulmonary opacity representing mild edema with overlying emphysema. She is being admitted for dialysis and further workup of her leukocytosis and weakness. Interval history 07/19: Patient is comfortable resting in bed. She is conversational and able to speak in full sentences. She states that she is here because she has been experiencing weakness over the past few days. She normally is able to ambulate with her wheeled walker but she has been too weak causing her to miss dialysis yesterday. She denies shortness of breath, chest pain, sore throat, congestion, nausea, vomiting, diarrhea, or constipation. She does have a dry, non-productive cough. She does have some swelling to her RLE but ultrasound was negative for DVT. Nephrology was consulted for HD. Review of Systems Review of Systems: All systems reviewed & are unremarkable except as noted in HPI and below Exam Narrative: General: Chronically ill appearing, well developed, well nourished, appears stated age. HEENT: normocephalic, atraumatic. Mucous membranes moist. EOMI, PERRLA, bilateral sclera anicteric, no conjunctival injection. Neck supple without JVD, lymphadenopathy, or bruit. Respiratory: diminished bilaterally. No rales/rhonic/wheezes. Cardiovascular: Regular rate and rhythm, normal S1-S2 upon auscultation. No murmurs, rubs, or clicks. PMI is nondisplaced, capillary re-fill less than
[2023-07-20 07:48] LABS: Basophils Percent Auto 0.4 % (0.2-1.2); Eosinophils Absolute Auto 0.1 K/mm3 (0-0.3); Eosinophils Percent Auto 0.8 % (0-4.4); Hematocrit 35.3 % (37.0-47.0); Immature Granulocyte Absolute 0.13 K/mm3 (0.00-0.031); Immature Granulocyte Percent A 1.4 % (0-0.5); Lymphocytes Percent Auto 11.5 % (18.3-44.2); Mean Corpuscular HGB Conc 31.2 g/dl (32-36); Mean Corpuscular Hemoglobin 30.5 pg (26-34); Mean Corpuscular Volume 97.8 fl (80-100); Mean Platelet Volume 9.8 fl (7.4-10.4); Monocytes Absolute Auto 1.3 K/mm3 (0.1-0.6); Monocytes Percent Auto 13.3 % (2.6-8.5); Neutrophils Absolute Auto 6.9 K/mm3 (1.3-6.7); Neutrophils Percent Auto 72.6 % (45.5-73.1); Platelet Count Result 192 k/mm3 (150-375); Red Blood Count 3.61 M/mm3 (4.2-5.4); Red Cell Distribution Width 15.9 % (11.5-14.5); White Blood Count 9.6 K/mm3 (4.5-10.0)
[2023-07-20 08:01] LABS: Anion Gap 13 mmol/L (8-16); Blood Urea Nitrogen 83 mg/dL (7-17); Calcium 10.3 mg/dL (8.4-10.2); Carbon Dioxide 29 mmol/L (22-30); Chloride 87 mmol/L (98-107); Estimated Glomerular Filt Rate 5; Glucose 51 mg/dL (65-110); Potassium 4.9 mmol/L (3.4-5.0); Sodium 129 mmol/L (137-145)
[2023-07-20 09:11] LABS: Hepatitis B Surface Antigen Negative (Negative)
[2023-07-20 09:28] LABS: Hepatitis B Surface Anti Res Negative
[2023-07-20 11:34] LABS: Glucose Point of Care 111 mg/dl (65-105)
[2023-07-20 11:34] LABS: Glucose Point of Care 50 mg/dl (65-105)
[2023-07-20] MEDS: carvediloL 12.5 MG TABLET PO ×2 (12:14→20:20)
[2023-07-20] MEDS: SEVELAMER CARBONATE 800 MG TABLET 1600 MG PO ×2 (12:14→16:38)
[2023-07-20] MEDS: hydrALAZINE HCL 50 MG TABLET PO ×2 (12:14→16:38)
--- NOTE | 2023-07-20 13:14 | PM.CNNEP ---
Assessment and Plan Assessment and plan (1) End stage renal disease: Code(s): N18.6 - End stage renal disease Status: Chronic Assessment and Plan: HD tomorrow will eventually transition back to T/T/S dialysis schedule while hospitalized follow electrolytes, volume status, and clearance (2) Acute UTI: Code(s): N39.0 - Urinary tract infection, site not specified Status: Acute Assessment and Plan: admission UA highly suggestive follow culture results on antibiotics etiology of #3 (?) (3) Generalized weakness: Code(s): R53.1 - Weakness Status: Deleted Assessment and Plan: noted in the last several days at baseline, able to ambulate with a walker PT/OT evaluation up as tolerated fall precautions (4) Hypertension: Code(s): I10 - Essential (primary) hypertension Status: Chronic Assessment and Plan: reasonable control at this time follow trend of hemodynamics (5) Anemia: Code(s): D64.9 - Anemia, unspecified Status: Chronic Assessment and Plan: due to ESRD Epogen with HD when Hgb < 10 follow trend of H/H I will continue to follow the patient with you while she remains hospitalized and make further recommendations during her hospital course. Thank you for allowing me to participate in care of this patient. History of Present Illness Reason for Consult Consult date: 07/20/23 Reason for consult: end stage renal disease Chief Complaint Chief complaint: UTI History of Present Illness Narrative: The patient is a 73-year-old female with a past medical history as outlined below who presented to [facility] Emergency room for further evaluation of weakness. Along with her generalized weakness, the patient reports a poor appetite and just feeling run down. It is difficult to fully ascertain how long the symptoms have been present but because of their ongoing severity, she was unable to go to her scheduled outpatient dialysis treatment yesterday. As the symptoms seem to be getting worse, she came to the ER for further assessment. Workup and evaluation emergency room demonstrated the patient be hemodynamically stable and in no acute distress. Routine blood tests were done which demonstrated an essentially mildly elevated white blood cell count, anemia of chronic kidney disease, and a chemistry that was consistent with her known history of end-stage renal disease without any critical electrolyte abnormalities. Her BNP was mildly elevated and her urinalysis showed evidence of a possible urinary tract infection. Her chest x-ray showed mild edema with overlying emphysema but no overt infiltrates or pleural effusions. She denies any other symptoms with regard to shortness of breath, chest pain, nausea, vomiting, diarrhea, sore throat, or constipation. She did admit that she has a non nonproductive cough and some increased swelling in her right lower extremity. She did have a ultrasound of her lower extremity which was negative for a DVT. Given her constellation of symptoms in conjunction with her laboratory/ imaging findings, she was admitted the hospital for further evaluation and therapy. Since her admission, she has been doing relatively well and despite the fact that she was mildly hypoxic in the emergency room required supplemental oxygen, at the time of my visit, she is not wearing oxygen. Renal consultation was requested due to her end-stage renal disease. The patient normally dialyzes on a Friday, , Friday schedule at [facility] under the care of Dr. Parviz Holt. Her last dialysis treatment was on of this week. As mentioned above, given her symptoms, she missed her scheduled dialysis treatment yesterday. However, as noted by her labs, she has no critical electrolyte abnormalities, metabolic acidosis, or evidence of uremia. Her chest x-ray shows some mild jose
--- NOTE | 2023-07-20 14:51 | PCOTNOTE ---
Attempted OT evaluation. Patient is drowsy. Declines OT evaluation at this time. Will follow.
[2023-07-20] MEDS: CALCIUM ACETATE 667 MG TABLET PO (16:38)
[2023-07-20] MEDS: SIMVASTATIN 20 MG TABLET PO (20:20)
[2023-07-20] MEDS: PANTOPRAZOLE 40 MG TABLET PO (20:20)
[2023-07-21] VITALS (18 sets, daily range): BP systolic 108–152; BP diastolic 54–82; PULSE 78–112; RESP 16–18; TEMP 36.1–37; O2SAT 92–98
[2023-07-21 06:51] LABS: Basophils Absolute Auto 0.1 K/mm3 (0.0-0.1); Basophils Percent Auto 0.5 % (0.2-1.2); Eosinophils Absolute Auto 0.1 K/mm3 (0-0.3); Eosinophils Percent Auto 1.3 % (0-4.4); Hematocrit 33.1 % (37.0-47.0); Hemoglobin 10.7 g/dL (12.0-15.0); Immature Granulocyte Absolute 0.39 K/mm3 (0.00-0.031); Immature Granulocyte Percent A 3.6 % (0-0.5); Lymphocytes Absolute Auto 1.33 K/mm3 (0.9-3.2); Lymphocytes Percent Auto 12.2 % (18.3-44.2); Mean Corpuscular HGB Conc 32.3 g/dl (32-36); Mean Corpuscular Hemoglobin 30.6 pg (26-34); Mean Corpuscular Volume 94.6 fl (80-100); Mean Platelet Volume 10.3 fl (7.4-10.4); Monocytes Absolute Auto 1.3 K/mm3 (0.1-0.6); Monocytes Percent Auto 11.9 % (2.6-8.5); Neutrophils Absolute Auto 7.7 K/mm3 (1.3-6.7); Neutrophils Percent Auto 70.5 % (45.5-73.1); Platelet Count Result 194 k/mm3 (150-375); Red Cell Distribution Width 15.9 % (11.5-14.5); White Blood Count 10.9 K/mm3 (4.5-10.0)
[2023-07-21 07:08] LABS: Alanine Aminotransferase 12 U/L (6-35); Albumin Level 3.3 g/dL (3.5-5.1); Alkaline Phosphatase 103 U/L (38-126); Anion Gap 12 mmol/L (8-16); Aspartate Amino Transferase 27 U/L (14-36); Bilirubin,Total 0.5 mg/dL (0.2-1.3); Blood Urea Nitrogen 90 mg/dL (7-17); Calcium 9.9 mg/dL (8.4-10.2); Carbon Dioxide 28 mmol/L (22-30); Chloride 86 mmol/L (98-107); Estimated Glomerular Filt Rate 4; Glucose 66 mg/dL (65-110); Magnesium 2.5 mg/dL (1.6-2.3); Phosphorus 5.1 mg/dL (2.5-4.5); Sodium 126 mmol/L (137-145)
[2023-07-21] MEDS: UMECLIDINIUM BROMIDE 62.5 MCG ELLIPTA 1 PUFF INHALATION (08:22)
--- NOTE | 2023-07-21 08:36 | PM.IMPN ---
Progress Note: A&P Assessment and Plan (1) UTI (urinary tract infection): Code(s): N39.0 - Urinary tract infection, site not specified Status: Acute Assessment and Plan: ADMIT TO REGULAR MEDICAL FLOOR PATIENT STARTED ON ANTIBIOTIC CULTURES IN PROGRESS SUPPORTIVE CARE (2) Generalized weakness: Code(s): R53.1 - Weakness Status: Acute Assessment and Plan: LIKELY SECONDARY TO 1. SUPPORTIVE CARE (3) End stage renal disease on dialysis: Code(s): N18.6 - End stage renal disease; Z99.2 - Dependence on renal dialysis Status: Acute Assessment and Plan: PATIENT MISSED LAST DIALYSIS TREATMENT NEPHROLOGY CONSULT (4) Cardiomyopathy: Qualifiers: Cardiomyopathy type: other Qualified Code(s): I42.8 - Other cardiomyopathies Code(s): I42.9 - Cardiomyopathy, unspecified Status: Acute Assessment and Plan: APPEARS COMPENSATED CONTINUE TO MONITOR (5) Chronic obstructive pulmonary disease: Code(s): J44.9 - Chronic obstructive pulmonary disease, unspecified Status: Acute Assessment and Plan: CONTINUE HOME MEDS PATIENT WITH A DRY COUGH NONPRODUCTIVE LIKELY SECONDARY TO MISSING DIALYSIS WITH ACUTE MILD LUNG EDEMA CONTINUE TO MONITOR (6) Obstructive sleep apnea: Code(s): G47.33 - Obstructive sleep apnea (adult) (pediatric) Status: Acute Assessment and Plan: CPAP AT NIGHTTIME Subjective Date/time seen: 07/21/23 08:36 Interval history: This is a 73-year-old female with past medical history significant for end-stage renal disease on hemodialysis (Friday, , Friday), anemia of chronic disease, 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 She presented to the ER overnight with complaints of weakness. She missed her dialysis yesterday due to feeling weak and unable to leave the house on her own. She states she has had a poor appetite and has been feeling run down. In the ED her labs were significant for a leukocytosis of 10.6, hemoglobin 10.8, hematocrit 34.3, sodium 131, creatinine 9.40, glucose 62, calcium 10.5, and BNP 8300. Her UA showed high wbc's and 2+ bacteria however the sample contains many epithelial cells. Chest x-ray shows pulmonary opacity representing mild edema with overlying emphysema. She is being admitted for dialysis and further workup of her leukocytosis and weakness. Interval history 07/19: Patient is comfortable resting in bed. She is conversational and able to speak in full sentences. She states that she is here because she has been experiencing weakness over the past few days. She normally is able to ambulate with her wheeled walker but she has been too weak causing her to miss dialysis yesterday. She denies shortness of breath, chest pain, sore throat, congestion, nausea, vomiting, diarrhea, or constipation. She does have a dry, non-productive cough. She does have some swelling to her RLE but ultrasound was negative for DVT. Nephrology was consulted for HD. Review of Systems Review of Systems: All systems reviewed & are unremarkable except as noted in HPI and below Exam Narrative: General: Chronically ill appearing, well developed, well nourished, appears stated age. HEENT: normocephalic, atraumatic. Mucous membranes moist. EOMI, PERRLA, bilateral sclera anicteric, no conjunctival injection. Neck supple without JVD, lymphadenopathy, or bruit. Respiratory: diminished bilaterally. No rales/rhonic/wheezes. Cardiovascular: Regular rate and rhythm, normal S1-S2 upon auscultation. No murmurs, rubs, or clicks. PMI is nondisplaced, capillary re-fill less than 3 second. Abdomen: Soft, round, no pulsatile masses, non-distended and non-tender. No rebound, no guarding. No CVA tenderness, no hepatosplenomegaly. Bowel sounds present to all four quadrants. No high pitch or tinkling sounds, resonant to percussion. Extremities: No cy
--- NOTE | 2023-07-21 08:40 | PM.IMPN ---
Progress Note: A&P Assessment and Plan (1) UTI (urinary tract infection): Code(s): N39.0 - Urinary tract infection, site not specified Status: Acute Assessment and Plan: U/A with WBC 21-50, +2 bacteria but many squamous cells -received IV cefepime in the ED -mild leukocytosis of 10.6 -afebrile (2) Generalized weakness: Code(s): R53.1 - Weakness Status: Acute Assessment and Plan: Usually ambulates with a walker. Weakness of the last few days. -PT/OT consulted -Up ad any -fall precautions (3) End stage renal disease on dialysis: Code(s): N18.6 - End stage renal disease; Z99.2 - Dependence on renal dialysis Status: Acute Assessment and Plan: Friday, , Friday dialysis -Missed HD on Friday due to weakness -Nephrology has been consulted, rec's appreciated -Anticipate HD tomorrow -Not in acute respiratory distress, K+ is normal (4) Cardiomyopathy: Qualifiers: Cardiomyopathy type: other Qualified Code(s): I42.8 - Other cardiomyopathies Code(s): I42.9 - Cardiomyopathy, unspecified Status: Acute Assessment and Plan: Not decompensated. -Continue home medications (5) Chronic obstructive pulmonary disease: Code(s): J44.9 - Chronic obstructive pulmonary disease, unspecified Status: Acute Assessment and Plan: Reports dry, non-productive cough -Not on oxygen -Continue home inhalers -Decreased lower lobe bases with scant crackles likely from mild pulmonary edema 2/2 missed HD (6) Obstructive sleep apnea: Code(s): G47.33 - Obstructive sleep apnea (adult) (pediatric) Status: Acute Assessment and Plan: CPAP at night Subjective Date/time seen: 07/21/23 08:40 Interval history: This is a 73-year-old female with past medical history significant for end-stage renal disease on hemodialysis (Friday, , Friday), anemia of chronic disease, 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 She presented to the ER overnight with complaints of weakness.? She missed her dialysis yesterday due to feeling weak and unable to leave the house on her own.? She states she has had a poor appetite and has been feeling run down.? In the ED her labs were significant for a leukocytosis of 10.6, hemoglobin 10.8, hematocrit 34.3, sodium 131, creatinine 9.40, glucose 62, calcium 10.5, and BNP 8300.? Her UA showed high wbc's and 2+ bacteria however the sample contains many epithelial cells.? Chest x-ray shows pulmonary opacity representing mild edema with overlying emphysema.? She is being admitted for dialysis and further workup of her leukocytosis and weakness. Interval history 07/19: Patient is comfortable resting in bed. She is conversational and able to speak in full sentences. She states that she is here because she has been experiencing weakness over the past few days. She normally is able to ambulate with her wheeled walker but she has been too weak causing her to miss dialysis yesterday. She denies shortness of breath, chest pain, sore throat, congestion, nausea, vomiting, diarrhea, or constipation. She does have a dry, non-productive cough. She does have some swelling to her RLE but ultrasound was negative for DVT. Nephrology was consulted for HD. Review of Systems Review of Systems: All systems reviewed & are unremarkable except as noted in HPI and below Exam Narrative: General: Chronically ill appearing, well developed, well nourished, appears stated age. HEENT: normocephalic, atraumatic. Mucous membranes moist. EOMI, PERRLA, bilateral sclera anicteric, no conjunctival injection. Neck supple without JVD, lymphadenopathy, or bruit. Respiratory: diminished? bilaterally. No rales/rhonic/wheezes. Cardiovascular: Regular rate and rhythm, normal S1-S2 upon auscultation. No murmurs, rubs, or clicks. PMI is nondisplaced, capillary re-fill less than 3 second. Abdomen: S
[2023-07-21] MEDS: DONEPEZIL HCL 10 MG TABLET PO (08:42)
[2023-07-21] MEDS: carvediloL 12.5 MG TABLET PO (08:42)
[2023-07-21] MEDS: allopurinoL 100 MG TABLET PO (08:42)
[2023-07-21] MEDS: ASPIRIN 81 MG CHEWABLE TABLET 324 MG PO (08:42)
[2023-07-21] MEDS: CALCIUM ACETATE 667 MG TABLET PO ×2 (08:42→13:06)
[2023-07-21] MEDS: SEVELAMER CARBONATE 800 MG TABLET 1600 MG PO ×2 (08:42→13:06)
[2023-07-21] MEDS: ISOSORBIDE MONONITRATE 30 MG TAB.ER.24H PO (08:42)
[2023-07-21] MEDS: hydrALAZINE HCL 50 MG TABLET PO ×2 (08:42→13:06)
[2023-07-21] MEDS: amLODIPine BESYLATE 5 MG TABLET PO (08:42)
--- NOTE | 2023-07-21 09:32 | PCPTNOTE ---
Attempted PT evaluation, pt in dialysis. Will follow.
--- NOTE | 2023-07-21 10:01 | PM.PNNEP ---
Progress Note: A&P Assessment and Plan (1) End stage renal disease: Code(s): N18.6 - End stage renal disease Status: Chronic Assessment and Plan: HD today will eventually transition back to T/T/S dialysis schedule while hospitalized versus as an outpatient follow electrolytes, volume status, and clearance (2) Acute UTI: Code(s): N39.0 - Urinary tract infection, site not specified Status: Acute Assessment and Plan: admission UA highly suggestive follow culture results on antibiotics etiology of #3 (?) (3) Generalized weakness: Code(s): R53.1 - Weakness Status: Deleted Assessment and Plan: noted in the last several days at baseline, able to ambulate with a walker PT/OT evaluation up as tolerated fall precautions (4) Hypertension: Code(s): I10 - Essential (primary) hypertension Status: Chronic Assessment and Plan: reasonable control at this time follow trend of hemodynamics (5) Anemia: Code(s): D64.9 - Anemia, unspecified Status: Chronic Assessment and Plan: due to ESRD Epogen with HD when Hgb < 10 follow trend of H/H Will continue to follow. Subjective Date/time seen: 07/21/23 10:01 Interval history: Follow-up for end stage renal disease on hemodialysis. Tolerating dialysis treatment at the time of my visit (seen on HD at 9:50AM); no apparent distress voiced currently; resting comfortably when seen; no other issues/events overnight or earlier this morning. Exam Narrative: General: elderly female in NAD Heart: normal S1 and S2; no rub Lungs: clear to auscultation Abdomen: soft, nontender, nondistended, positive bowel sounds Extremities: no cyanosis or clubbing; 1+ edema Skin: warm and dry Objective Data Vital Signs Vital Signs: Vital Signs Temp Pulse Resp BP Pulse Ox O2 Del Method FiO2 07/21/23 10:00 102 H 147/79 H 07/21/23 09:45 101 H 147/78 H 07/21/23 09:31 99 146/79 H 07/21/23 09:18 97.5 F L 102 H 16 152/82 H 07/21/23 08:30 Room Air 07/21/23 08:23 93 18 07/21/23 08:23 93 Room Air 21 07/21/23 05:37 97 F L 91 18 148/65 H 92 07/20/23 20:00 Room Air 07/20/23 21:30 98 F 93 18 135/56 L 94 07/20/23 20:20 86 07/20/23 14:00 99 F 85 18 125/68 98 Intake/Output Intake/Output: Intake & Output 07/18/23 07/19/23 07/20/23 07/21/23 23:59 23:59 23:59 23:59 Intake Total 885 168 Output Total 25 -25 885 168 Meds/Results Medications: Active Medications Generic Name Dose Route Start Last Admin Trade Name Freq PRN Reason Stop Dose Admin Acetaminophen 500 mg 07/20/23 11:29 Acetaminophen 500 Mg Tablet PO Q6H PRN Pain (Scale Score 1-3) Albuterol 1 puff 07/20/23 11:29 Albuterol Sulfate (*Sp) Aerosol 1 Puff INHALATION Q4H PRN Shortness Of Breath Allopurinol 100 mg 07/21/23 09:00 07/21/23 08:42 Allopurinol 100 Mg Tablet PO 100 mg DAILY OLAF Administration Amlodipine Besylate 5 mg 07/21/23 09:00 07/21/23 08:42 Amlodipine Besylate 5 Mg Tablet PO 5 mg DAILY OLAF Administration Aspirin 324 mg 07/21/23 09:00 07/21/23 08:42 Aspirin 81 Mg Chewable Tablet PO 324 mg DAILY OLAF Administration Calcium Acetate 667 mg 07/20/23 17:00 07/21/23 08:42 Calcium Acetate 667 Mg Tablet PO 667 mg TIDWM OLAF Administration Carvedilol 12.5 mg 07/20/23 11:30 07/21/23 08:42 Carvedilol 12.5 Mg Tablet PO 12.5 mg Q12HR OLAF Administration Donepezil HCl 10 mg 07/21/23 09:00 07/21/23 08:42 Donepezil Hcl 10 Mg Tablet PO 10 mg DAILY OLAF Administration Epoetin Panchito-epbx 4,000 units 07/21/23 20:00 07/21/23 10:26 Epoetin Panchito-Epbx 4,000 Units/Ml Vial IV PUSH 07/21/23 20:01 4,000 units ONCE ONE Administration Fluticasone Propionate 2 spray 07/20/23 11:29 Fluticaso
[2023-07-21] MEDS: EPOETIN ALFA-EPBX 4,000 UNITS/ML VIAL 4000 UNITS IV PUSH (10:26)
[2023-07-21] MEDS: ACETAMINOPHEN 500 MG TABLET PO (13:06)
--- NOTE | 2023-07-21 15:13 | PM.DS ---
DS: Admitting Diagnosis Discharge Date 07-20 Admitting Diagnosis Weakness DS: Discharge Diagnosis Discharge Diagnosis (1) UTI (urinary tract infection): Code(s): N39.0 - Urinary tract infection, site not specified Status: Acute (2) Generalized weakness: Code(s): R53.1 - Weakness Status: Acute (3) End stage renal disease on dialysis: Code(s): N18.6 - End stage renal disease; Z99.2 - Dependence on renal dialysis Status: Acute (4) Cardiomyopathy: Qualifiers: Cardiomyopathy type: other Qualified Code(s): I42.8 - Other cardiomyopathies Code(s): I42.9 - Cardiomyopathy, unspecified Status: Acute (5) Chronic obstructive pulmonary disease: Code(s): J44.9 - Chronic obstructive pulmonary disease, unspecified Status: Acute (6) Obstructive sleep apnea: Code(s): G47.33 - Obstructive sleep apnea (adult) (pediatric) Status: Acute Plan (1) UTI (urinary tract infection): ?Code(s): N39.0 - Urinary tract infection, site not specified ?Status:?Acute ?Assessment and Plan: U/A with WBC 21-50, +2 bacteria but many squamous cells -received IV cefepime in the ED -mild leukocytosis of 10.6 -afebrile (2) Generalized weakness: ?Code(s): R53.1 - Weakness ?Status:?Acute ?Assessment and Plan: Usually ambulates with a walker. Weakness of the last few days. -PT/OT consulted -Up ad any -fall precautions (3) End stage renal disease on dialysis: ?Code(s): N18.6 - End stage renal disease; Z99.2 - Dependence on renal dialysis ?Status:?Acute ?Assessment and Plan: Friday, , Friday dialysis -Missed HD on Friday due to weakness -Nephrology has been consulted, rec's appreciated -Anticipate HD tomorrow -Not in acute respiratory distress, K+ is normal (4) Cardiomyopathy: ?Qualifiers: ?Cardiomyopathy type:?other? Qualified Code(s):?I42.8 - Other cardiomyopathies ?Code(s): I42.9 - Cardiomyopathy, unspecified ?Status:?Acute ?Assessment and Plan: Not decompensated. -Continue home medications (5) Chronic obstructive pulmonary disease: ?Code(s): J44.9 - Chronic obstructive pulmonary disease, unspecified ?Status:?Acute ?Assessment and Plan: Reports dry, non-productive cough -Not on oxygen -Continue home inhalers -Decreased lower lobe bases with scant crackles likely from mild pulmonary edema 2/2 missed HD (6) Obstructive sleep apnea: ?Code(s): G47.33 - Obstructive sleep apnea (adult) (pediatric) ?Status:?Acute ?Assessment and Plan: CPAP at night DS: Summary Hospital Course Reason for hospitalization: Missed dialysis, UTI Hospital Course: This is a 73-year-old female with past medical history significant for end-stage renal disease on hemodialysis (Friday, , Friday), anemia of chronic disease, 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 She presented to the ER overnight with complaints of weakness.? She missed her dialysis yesterday due to feeling weak and unable to leave the house on her own.? She states she has had a poor appetite and has been feeling run down.? In the ED her labs were significant for a leukocytosis of 10.6, hemoglobin 10.8, hematocrit 34.3, sodium 131, creatinine 9.40, glucose 62, calcium 10.5, and BNP 8300.? Her UA showed high wbc's and 2+ bacteria however the sample contains many epithelial cells.? Chest x-ray shows pulmonary opacity representing mild edema with overlying emphysema.? She is being admitted for dialysis and further workup of her leukocytosis and weakness. Interval history 07/19: Patient is comfortable resting in bed. She is conversational and able to speak in full sentences. She states that she is here because she has been experiencing weakness over the past few days. She normally is able to ambulate with her wheeled walker but she has been too weak causing her to
--- NOTE | 2023-07-22 06:39 | PC.NURSE ---
Urine cx shows no growth.
== END 2023-07-21 16:20 | disposition home or self-care (01) ==
LOC: ANHED 19:45 → ANH3MEDSUR 07-20 02:27
PROVIDERS: Internal Medicine Nephrology; Nurse Practitioner Acute Care; Physician Assistant; Admitting Provider Internal Medicine; Emergency Provider Preventive Medicine Aerospace Medicine; PCP Internal Medicine Infectious Disease; Visit Provider General Practice
DX: N39.0 Urinary tract infection, site not specified (principal); I12.0 Hypertensive chronic kidney disease with stage 5 chronic kidney disease or end stage renal disease; N18.6 End stage renal disease; Z99.2 Dependence on renal dialysis; R53.1 Weakness; R09.02 Hypoxemia; D63.1 Anemia in chronic kidney disease; I42.8 Other cardiomyopathies; J44.9 Chronic obstructive pulmonary disease, unspecified; G47.33 Obstructive sleep apnea (adult) (pediatric); Z99.89 Dependence on other enabling machines and devices; J81.0 Acute pulmonary edema; N25.0 Renal osteodystrophy; Z68.30 Body mass index [BMI] 30.0-30.9, adult; R06.02 Shortness of breath; I69.311 Memory deficit following cerebral infarction; I69.354 Hemiplegia and hemiparesis following cerebral infarction affecting left non-dominant side; R94.31 Abnormal electrocardiogram [ECG] [EKG]; G89.4 Chronic pain syndrome; Z97.8 Presence of other specified devices; E78.5 Hyperlipidemia, unspecified; Z20.822 Contact with and (suspected) exposure to COVID-19; Z87.891 Personal history of nicotine dependence; Z79.82 Long term (current) use of aspirin; Z79.51 Long term (current) use of inhaled steroids; Z79.899 Other long term (current) drug therapy
CPT/HCPCS: 36415; 71046; 80048; 80053; 81001; 82948; 83735; 83880; 84100; 85025; 85610; 85730; 86706; 87040; 87086; 87340; 87637; 93005; 93971; 94640; 96365; 96367; 96375; 96376; 97165; 99285; A9270; G0257; G0378; J0692; J0696; J7030; Q5105